=== PATIENT | female | born 1985 | race Caucasian/White ===

== ENCOUNTER 2018-05-17 21:26 | Inpatient (IN) ==
[2018-05-17] MEDS ORDERED: Clindamycin 900 mg/NS Premix 900 MG/50 ML PIGGYBACK IV.SIG ONE (22:25)
[2018-05-17] MEDS ORDERED: Morphine Sulfate Inj 2 MG/ML Vial IV.PUSH ONE (22:25)
[2018-05-17 22:47] LABS: Baso # (Auto) 0.1 th/mm3 (0.0-0.2); Baso % (Auto) 0.6 % (0.0-2.0); Eos # (Auto) 0.1 th/mm3 (0.0-0.4); Eos % (Auto) 0.3 % (0.0-4.0); Hematocrit 39.3 % (35.0-46.0); Hemoglobin 13.6 gm/dL (11.6-15.3); Lymph # (Auto) 3.6 th/mm3 (1.0-4.8); Lymph % (Auto) 15.3 % (9.0-44.0); Mean Corpuscular HGB Conc 34.6 % (32.0-36.0); Mean Corpuscular Volume 86.9 fL (80.0-100.0); Mono # (Auto) 1.9 th/mm3 (0.0-0.9); Mono % (Auto) 7.9 % (0.0-8.0); Neut # (Auto) 17.9 th/mm3 (1.8-7.7); Neut % (Auto) 75.9 % (16.0-70.0); Platelet Count 340 th/mm3 (150-450); Red Blood Count 4.52 mil/mm3 (4.00-5.30); Red Cell Distribution Width 13.6 % (11.6-17.2); White Blood Count 23.6 th/mm3 (4.0-11.0)
[2018-05-17 23:00] LABS: Carbon Dioxide 27.8 meq/L (21.0-32.0); Potassium 3.2 meq/L (3.5-5.1)
--- NOTE | 2018-05-17 23:07 | ED ---
HPI General Chief complaint: Skin/Abscess/Foreign Body Stated complaint: poss ingrown hair/skin issue Time Seen by Provider: 05/17/18 22:08 Source: patient Mode of arrival: ambulatory Limitations: no limitations History of Present Illness HPI narrative: Patient is a 32-year-old female presenting to the emergency department for evaluation of pain, swelling and redness to her genital area. Patient reports that started 3 days ago, she initially thought she had an ingrown hair. The area had become more red and swollen over the last 2 days prompting a visit to the urgent care center today and sent her to the emergency department for evaluation. Patient denies fevers but reports chills and states she does not feel well. Patient reports 10 out of 10 pain, constant, throbbing. No alleviating factors, worse when she tries to walk. She denies any other complaints at this time. MD complaint: Reports abscess/boil Onset (ago): day(s) (3) Location: Reports genitals Severity: severe Severity scale (1-10): 10 Quality: Reports aching Pain Consistency: constant Relieving factors: none Exacerbating factors: movement Context: Reports other (shaving) Associated symptoms: Reports chills Treatments prior to arrival: Reports attempted to drain pus at home Related Data Home Medications Medication Instructions Recorded Confirmed duloxetine [Cymbalta] 60 mg PO DAILY 05/17/18 05/17/18 hydrochlorothiazide 25 mg PO DAILY 05/17/18 05/17/18 Allergies Allergy/AdvReac Type Severity Reaction Status Date / Time No Known Allergies Allergy Verified 05/17/18 21:35 Review of Systems ROS: all other systems reviewed are negative [facility] Medical History Medical History Depression (Acute) HTN (hypertension) (Acute) Hepatitis C (Acute) Surgical History Surgical History H/O hernia repair (Acute) Hx of section (Acute) Social History Social History Smoking Status: Current every day smoker Tobacco Type: Cigarettes How Often Do You Have a Drink Containing Alcohol: Monthly or less Recent Travel in [facility] within the Last 8 Weeks: No Recent Out of Country Travel within the Last 8 Weeks: No Immunization History Tetanus Immunization: Unsure Exam Narrative Exam Narrative: GENERAL: Overweight, alert, well-developed female. Appears uncomfortable, no acute distress. SKIN: Focused skin assessment warm/dry. HEAD: Atraumatic. Normocephalic. EYES: Pupils equal and round. No scleral icterus. No injection or drainage. ENT: No nasal bleeding or discharge. Mucous membranes pink and moist. NECK: Trachea midline. No JVD. CARDIOVASCULAR: Regular rate and rhythm. No murmur appreciated. RESPIRATORY: No accessory muscle use. Clear to auscultation. Breath sounds equal bilaterally. GASTROINTESTINAL: Abdomen soft, non-tender, nondistended. Hepatic and splenic margins not palpable. MUSCULOSKELETAL: No obvious deformities. No clubbing. No cyanosis. No edema. GENITOURINARY: No dysuria, no frequency, vaginal discharge or bleeding. Significant edema and erythema to mons pubis tracking to the left outer labia. No fluctuance noted. NEUROLOGICAL: Awake and alert. No obvious cranial nerve deficits. Motor grossly within normal limits. Normal speech. PSYCHIATRIC: Appropriate mood and affect; insight and judgment normal. Course Initial Documented Vital Signs Temperature 99.8 F H 05/17/18 21:32 Pulse Rate 112 H 05/17/18 21:32 Respiratory Rate 20 05/17/18 21:32 Blood Pressure 180/112 H 05/17/18 21:32 Pulse Oximetry 98 05/17/18 21:32 Last Documented Vital Signs Temperature 99.4 F 05/17/18 23:51 Pulse Rate 104 H 05/17/18 23:51 Respiratory Rate 16 05/17/18 23:51 Blood Pressure 135/81 05/17/18 23:51 Pulse Oximetry 97 05/17/18 23:51 Medical Decision Making [facility] Narrative Medical decision making narrative: Patient is a 32-year-old female that presented to emerge from for evaluation of an abscess to her mons pubis. I&D was attempted however no purulent drainage was obtained. Basic labs were ordered, CBC resulted with a white blood cell count greater than 23,000. At this time blood cultures, lactic acid and a CT scan was ordered. Patient was given clindamycin IV, morphine for pain and IV fluids. Her temp was assessed at 100.1 patient was given ibuprofen for the fever. She was reassessed and her temperature had normalized. Her heart rate trended down after administration of IV fluids. Patient meets sepsis protocol based on her white blood cell count , tachycardia and source. Patient will be admitted for IV antibiotics. Patient is agreeable to stay, she is resting comfortably upon reassessment. Medical Screen Exam Complete: Yes Emergency Medical Condition: Yes Differential Diagnosis Differential Diagnosis: Cellulitis versus abscess versus sepsis versus other Lab Data Result diagrams: 05/17/18 22:40 05/17/18 22:40 Lab Results 05/17/18 05/17/18 05/17/18 Range/Units 22:40 22:40 23:00 WBC 23.6 H (4.0-11.0) th/mm3 RBC 4.52 (4.00-5.30) mil/mm3 Hgb 13.6 (11.6-15.3) gm/dL Hct 39.3 (35.0-46.0) % MCV 86.9 (80.0-100.0) fL MCH 30.0 (27.0-34.0) pg MCHC 34.6 (32.0-36.0) % RDW 13.6 (11.6-17.2) % Plt Count 340 (150-450) th/mm3 MPV 8.0 (7.0-11.0) fL Neut % (Auto) 75.9 H (16.0-70.0) % Lymph % (Auto) 15.3 (9.0-44.0) % [place] % (Auto) 7.9 (0.0-8.0) % Eos % (Auto) 0.3 (0.0-4.0) % Baso % (Auto) 0.6 (0.0-2.0) % Neut # (Auto) 17.9 H (1.8-7.7) th/mm3 Lymph # (Auto) 3.6 (1.0-4.8) th/mm3 [place] # (Auto) 1.9 H (0.0-0.9) th/mm3 Eos # (Auto) 0.1 (0.0-0.4) th/mm3 Baso # (Auto) 0.1 (0.0-0.2) th/mm3 WBC Differential . Differential Comment Auto diff final Sodium 133 L (136-145) meq/L Potassium 3.2 L (3.5-5.1) meq/L Chloride 97 L (98-107) meq/L Carbon Dioxide 27.8 (21.0-32.0) meq/L Anion Gap 8 (5-15) meq/L BUN 8 (7-18) mg/dL Creatinine 0.82 (0.50-1.00) mg/dL Estimated GFR 82 L (>89) mL/min Random Glucose 98 (74-106) mg/dL Lactic Acid 1.2 (0.4-2.0) mmol/L Calcium 9.0 (8.5-10.1) mg/dL Total Bilirubin (0.2-1.0) mg/dL Direct Bilirubin (0.0-0.2) mg/dL Indirect Bilirubin (0.0-0.8) mg/dL AST (15-37) U/L ALT (10-53) U/L Alkaline Phosphatase (45-117) U/L Total Protein (6.4-8.2) g/dL Albumin (3.4-5.0) g/dL Urine Color (Yellw/Straw) Urine Clarity (Clear) Urine pH (5.0-8.5) Ur Specific [place] (1.002-1.035) Urine Protein (Neg-Trace) mg/dL Urine Glucose (UA) (Negative) mg/dL Urine Ketones (Negative) mg/dL Urine Occult Blood (Negative) Urine Nitrate (Negative) Urine Bilirubin (Negative) Urine Urobilinogen (Less than 2) mg/dL Ur Leukocyte Esterase (Negative) Urine RBC (0-3) /hpf Urine WBC (0-5) /hpf Ur Squamous Epith Cells (0-5) /hpf Urine Bacteria (None) /hpf Urine Mucus (Occasional) /lpf Micro UA Comment Ur Microscopic Review Urine Culture Comments 05/17/18 05/17/18 Range/Units 23:05 Unknown WBC (4.0-11.0) th/mm3 RBC (4.00-5.30) mil/mm3 Hgb (11.6-15.3) gm/dL Hct (35.0-46.0) % MCV (80.0-100.0) fL MCH (27.0-34.0) pg MCHC (32.0-36.0) % RDW (11.6-17.2) % Plt Count (150-450) th/mm3 MPV (7.0-11.0) fL Neut % (Auto) (16.0-70.0) % Lymph % (Auto) (9.0-44.0) % [place] % (Auto) (0.0-8.0) % Eos % (Auto) (0.0-4.0) % Baso % (Auto) (0.0-2.0) % Neut # (Auto) (1.8-7.7) th/mm3 Lymph # (Auto) (1.0-4.8) th/mm3 [place] # (Auto) (0.0-0.9) th/mm3 Eos # (Auto) (0.0-0.4) th/mm3 Baso # (Auto) (0.0-0.2) th/mm3 WBC Differential Differential Comment Sodium (136-145) meq/L Potassium (3.5-5.1) meq/L Chloride (98-107) meq/L Carbon Dioxide (21.0-32.0) meq/L Anion Gap (5-15) meq/L BUN (7-18) mg/dL Creatinine (0.50-1.00) mg/dL Estimated GFR (>89) mL/min Random Glucose (74-106) mg/dL Lactic Acid (0.4-2.0) mmol/L Calcium (8.5-10.1) mg/dL Total Bilirubin 1.1 H (0.2-1.0) mg/dL Direct Bilirubin 0.2 (0.0-0.2) mg/dL Indirect Bilirubin 0.9 H (0.0-0.8) mg/dL AST 31 (15-37) U/L ALT 74 H (10-53) U/L Alkaline Phosphatase 80 (45-117) U/L Total Protein 7.8 (6.4-8.2) g/dL Albumin 3.7 (3.4-5.0) g/dL Urine Color Straw (Yellw/Straw) Urine Clarity Clear (Clear) Urine pH 5.0 (5.0-8.5) Ur Specific [place] 1.006 (1.002-1.035) Urine Protein Negative (Neg-Trace) mg/dL Urine Glucose (UA) Negative (Negative) mg/dL Urine Ketones Negative (Negative) mg/dL Urine Occult Blood Negative (Negative) Urine Nitrate Negative (Negative) Urine Bilirubin Negative (Negative) Urine Urobilinogen Less than 2 (Less than 2) mg/dL Ur Leukocyte Esterase Negative (Negative) Urine RBC Less than 1 (0-3) /hpf Urine WBC 1 (0-5) /hpf Ur Squamous Epith Cells 1 (0-5) /hpf Urine Bacteria Rare H (None) /hpf Urine Mucus Few H (Occasional) /lpf Micro UA Comment Culture not ind Ur Microscopic Review Not Reportable Urine Culture Comments Culture not ind Imaging Data Radiologist's impression: Abdomen/Pelvis CT 05/17/18 22:52 CONCLUSION: Cellulitis in the region of the vulva but no evidence of abscess. Probable left adrenal adenoma [place]ense liver compatible with fatty infiltration or hepatocellular disease. Discharge Plan Discharge Disposition Patient Disposition: 32 Still Patient Discharge Condition Condition: Stable Discharge Details Diagnosis: Sepsis, Cellulitis Physicians Team ED Provider: Terry Jose ED Midlevel Provider: Rosie Massey Primary Care Provider: Luci Benjamin, Rxs /Orders / Referrals /Forms Prescriptions: No Action hydrochlorothiazide 25 mg Tablet 25 mg PO DAILY RF: 0 duloxetine [Cymbalta] 60 mg Capsule,Delayed Release(Dr/Ec) 60 mg PO DAILY RF: 0 Discharge Interventions Interventions: Vital Signs Last Done: 05/17/18 21:49 Status ED Status: Admitted Patient
[2018-05-17 23:24] LABS: Bacteria,Urine Rare /hpf; Bilirubin,Urine Negative (Negative); Clarity,Urine Clear (Clear); Color,Urine Straw (Yellw/Straw); Glucose,Urine (UA) Negative (Negative); Leukocyte Esterase,Urine Negative (Negative); Mucus,Urine Few /lpf (Occasional); Nitrite,Urine Negative (Negative); Specific Gravity,Urine 1.006 (1.002-1.035); Squamous Epithelial Cell,Urine 1 /hpf (0-5)
--- NOTE | 2018-05-17 23:24 | CT ---
EXAM DATE: 05/17/2018 10:57 PM EDT AGE/SEX: 32 years / Female INDICATIONS: Pubic abscess. CLINICAL DATA: This is the patient's initial encounter. Patient reports that signs and symptoms have been present for 1 day and indicates a pain score of 10/10. MEDICAL/SURGICAL HISTORY: Hepatitis C. Hypertension. section. Hernia repair ORAL CONTRAST: No oral contrast ingested. RADIATION DOSE: 9.16 CTDI (mGy) COMPARISON: No prior exams available for comparison. TECHNIQUE: Multiple contiguous axial images were obtained through the abdomen and pelvis following b olus infusion of 95 ml Omnipaque 350 (iohexol) nonionic water-soluble contrast as a single exam dos e. No oral contrast ingested. Using automated exposure control and adjustment of the mA and/or kV ac cording to patient size, radiation dose was kept as low as reasonably achievable to obtain optimal di agnostic quality images. DICOM format image data is available electronically for review and comparis on. FINDINGS: Examination of the lung bases demonstrates no abnormality. No pleural fluid is identified. No pulmona ry nodules are present. There is decreased density of the liver with respect to the spleen compatible with fatty infiltration. The spleen is unremarkable. The gallbladder and pancreas are unremarkable. No intrahepatic or extrahepatic ductal dilatation is seen. The right adrenal gland is unremarkable. There is a nodule in the left adrenal gland likely reflecting adenoma measuring 2 cm The kidneys are normal bilaterally without evidence of mass or hydronephrosis. Examination of the pelvis demonstrates no evidence of free fluid or pelvic mass. No abnormally enlarg ed inguinal or retroperitoneal lymph nodes are present. The bladder is unremarkable. There is subcuta neous edema over the vulva but no discrete abscess is identified. CONCLUSION: Cellulitis in the region of the vulva but no evidence of abscess. Probable left adrenal adenoma Hypodense liver compatible with fatty infiltration or hepatocellular disease. Electronically signed by: Erik Borges MD 05/17/2018 11:23 PM EDT
[2018-05-17 23:37] LABS: Albumin 3.7 g/dL (3.4-5.0)
[2018-05-17 23:38] LABS: Total Protein 7.8 g/dL (6.4-8.2)
[2018-05-18 00:39] LABS: Amphetamine Screen,Urine Neg (Neg); Barbiturate Screen,Urine Neg (Neg); Cannabinoid Screen,Urine Pos (Neg); Cocaine Screen,Urine Pos (Neg)
[2018-05-18 00:40] LABS: Opiate Screen,Urine Pos (Neg)
[2018-05-18] MEDS ORDERED: Bisacodyl 10 MG Supp RECTAL PRN (01:14)
[2018-05-18] MEDS: Sod Chloride 0.9% Inj 1,000 ML IV.CONT SCH ×3 (01:19→21:38)
--- NOTE | 2018-05-18 01:21 | P.HP ---
History of Present Illness Service: [facility] Primary Care Physician: Luci Benjamin History of Present Illness: 32-year-old female with past medical history of depression, hepatitis C and IV drug abuse presents to the emergency department for evaluation of pubic cellulitis. The patient reports approximately 3-4 days ago she noticed a small red bump which she thought was an ingrown hair over the left side of her pubic bone. She reports an increase in pain and redness since that time. She endorses associated fever/chills. Also complains of diarrhea. No abdominal pain. No previous antibiotic use. No nausea/vomiting. No chest pain or shortness of breath. Inpatient Certification: I certify that the inpatient services were ordered in accordance with Medicare regulations governing the order. This includes certification that hospital inpatient services are reasonable and necessary and in the case of services not specified as inpatient-only under 42 CFR 419.22(n), that they are appropriately provided as inpatient services in accordance to with the 2-midnight benchmark under 43 CFR 412.3(e) Estimated Total Length of Stay (Days): 2 Plans for Post Hospital Care: Home Review of Systems All other systems reviewed negative except as stated in HPI PMFSH - History History Provided By: Patient - Medical History Medical History: Medical History (Last Reviewed 05/18/18 @ 01:17 by Ophelia Porras MD) Depression HTN (hypertension) Hepatitis C - Surgical History Surgical History: Surgical History (Last Updated 05/18/18 @ 01:17 by Ophelia Porras MD) H/O hernia repair History of bilateral breast reduction surgery Hx of section - Family History Family History: Family History (Last Updated 05/18/18 @ 01:17 by Ophelia Porras MD) Other Family history normal - Tobacco History Tobacco Use In Past 30 Days: Yes Smoking Status: Current every day smoker Tobacco Type: Cigarettes - Alcohol History How Often Do You Have a Drink Containing Alcohol: Monthly or less - Travel History Recent Travel in the [place] Within the Last 8 Weeks: No Recent Travel Out of the Country Within the Last 8 Weeks: No - Immunization History Tetanus Immunization: Unsure Medications and Allergies Active Medications: Active Medications Sodium Chloride (Ns Flush) 2 ml IV.FLUSH PRN PRN PRN Reason: FLUSH AFTER USING IV ACCESS Sodium Chloride (Ns Flush) 2 ml IV.FLUSH PRN PRN PRN Reason: FLUSH AFTER USING IV ACCESS Allergies Allergy/AdvReac Type Severity Reaction Status Date / Time No Known Allergies Allergy Verified 05/17/18 21:35 Home Medications Medication Instructions Recorded Confirmed Type duloxetine [Cymbalta] 60 mg PO DAILY 05/17/18 05/17/18 History hydrochlorothiazide 25 mg PO DAILY 05/17/18 05/17/18 History Exam Vital signs: Vital Signs 05/17/18 21:32 05/17/18 21:49 05/17/18 22:42 Temperature 99.8 F H Pulse Rate 112 H 105 H Respiratory Rate 20 18 16 Blood Pressure 180/112 H 145/96 H Pulse Oximetry 98 98 05/17/18 23:51 Temperature 99.4 F Pulse Rate 104 H Respiratory Rate 16 Blood Pressure 135/81 Pulse Oximetry 97 Intake & Output 05/17/18 05/17/18 05/18/18 06:59 18:59 06:59 Intake Total 50 / 50 Balance 50 / 50 Weight 84.822 kg Intake: IV 50 / 50 Cleocin 900 mg/NS Premix 900 mg 50 / 50 In 50 ml @ 100 mls/hr IV.SIG ONCE ONE Rx#:[id number] Narrative: Gen.: No acute distress Head: Normocephalic. Atraumatic. EENT: Pupils equal round and reactive to light. Nose without drainage. Airway intact. Throat without injection. Cardiovascular: Regular rate and rhythm. No murmurs, rubs or gallops. Respiratory: Lungs clear to auscultation bilaterally. No wheezes or rhonchi. Abdomen: Soft, nontender, nondistended. No peritoneal signs. Musculoskeletal: No gross deformities. No edema. Skin: Large area of erythema and induration over the pubic bone extending to left vulva. No areas of fluctuance or drainage. Neuro: Sensory and motor grossly intact. Cranial nerves II through XII grossly intact. Results - Labs CBC & Chem 7: 05/17/18 22:40 05/17/18 22:40 Labs: Laboratory Results - last 24 hr 05/17/18 05/17/18 05/17/18 22:40 22:40 23:00 WBC 23.6 H RBC 4.52 Hgb 13.6 Hct 39.3 MCV 86.9 MCH 30.0 MCHC 34.6 RDW 13.6 Plt Count 340 MPV 8.0 Neut % (Auto) 75.9 H Lymph % (Auto) 15.3 [place] % (Auto) 7.9 Eos % (Auto) 0.3 Baso % (Auto) 0.6 Neut # (Auto) 17.9 H Lymph # (Auto) 3.6 [place] # (Auto) 1.9 H Eos # (Auto) 0.1 Baso # (Auto) 0.1 WBC Differential . Differential Comment Auto diff final Sodium 133 L Potassium 3.2 L Chloride 97 L Carbon Dioxide 27.8 Anion Gap 8 BUN 8 Creatinine 0.82 Estimated GFR 82 L Random Glucose 98 Lactic Acid 1.2 Calcium 9.0 Total Bilirubin Direct Bilirubin Indirect Bilirubin AST ALT Alkaline Phosphatase Total Protein Albumin Urine Color Urine Clarity Urine pH Ur Specific [place] Urine Protein Urine Glucose (UA) Urine Ketones Urine Occult Blood Urine Nitrate Urine Bilirubin Urine Urobilinogen Ur Leukocyte Esterase Urine RBC Urine WBC Ur Squamous Epith Cells Urine Bacteria Urine Mucus Micro UA Comment Ur Microscopic Review Urine Culture Comments Urine Opiates Screen Ur Barbiturates Screen Ur Amphetamines Screen U Benzodiazepines Scrn Urine Cocaine Screen U Cannabinoids Screen 05/17/18 05/17/18 05/17/18 23:05 23:05 Unknown WBC RBC Hgb Hct MCV MCH MCHC RDW Plt Count MPV Neut % (Auto) Lymph % (Auto) [place] % (Auto) Eos % (Auto) Baso % (Auto) Neut # (Auto) Lymph # (Auto) [place] # (Auto) Eos # (Auto) Baso # (Auto) WBC Differential Differential Comment Sodium Potassium Chloride Carbon Dioxide Anion Gap BUN Creatinine Estimated GFR Random Glucose Lactic Acid Calcium Total Bilirubin 1.1 H Direct Bilirubin 0.2 Indirect Bilirubin 0.9 H AST 31 ALT 74 H Alkaline Phosphatase 80 Total Protein 7.8 Albumin 3.7 Urine Color Straw Urine Clarity Clear Urine pH 5.0 Ur Specific [place] 1.006 Urine Protein Negative Urine Glucose (UA) Negative Urine Ketones Negative Urine Occult Blood Negative Urine Nitrate Negative Urine Bilirubin Negative Urine Urobilinogen Less than 2 Ur Leukocyte Esterase Negative Urine RBC Less than 1 Urine WBC 1 Ur Squamous Epith Cells 1 Urine Bacteria Rare H Urine Mucus Few H Micro UA Comment Culture not ind Ur Microscopic Review Not Reportable Urine Culture Comments Culture not ind Urine Opiates Screen Pos H Ur Barbiturates Screen Neg Ur Amphetamines Screen Neg U Benzodiazepines Scrn Neg Urine Cocaine Screen Pos H U Cannabinoids Screen Pos H - Imaging Impressions Abdomen/Pelvis CT 10/17/18 22:52 CONCLUSION: Cellulitis in the region of the vulva but no evidence of abscess. Probable left adrenal adenoma Hypodense liver compatible with fatty infiltration or hepatocellular disease. Caprini VTE Risk Assessment Caprini VTE Risk Assessment: No/Low Risk (score <= 1) Caprini Risk Assessment Model: Point Value = 1 Point Value = 2 Point Value = 3 Point Value = 5 Age 41-60 Minor surgery BMI > 25 kg/m2 Swollen legs Varicose veins or History of unexplained or recurrent spontaneous Oral contraceptives or hormone replacement Sepsis (< 1 month) Serious lung disease, including pneumonia (< 1 month) Abnormal pulmonary function Acute myocardial infarction Congestive heart failure (< 1 month) History of inflammatory bowel disease Medical patient at bed rest Age 61-74 Arthroscopic surgery Major open surgery (> 45 min) Laparoscopic surgery (> 45 min) Malignancy Confined to bed (> 72 hours) Immobilizing plaster cast Central venous access Age >= 75 History of VTE Family history of VTE Factor V Leiden Prothrombin [id number] Lupus anticoagulant Anticardiolipin antibodies Elevated serum homocysteine Heparin-induced thrombocytopenia Other congenital or acquired thrombophilia Stroke (< 1 month) Elective arthroplasty Hip, pelvis, or leg fracture Acute spinal cord injury (< 1 month) Prophylaxis Regimen: Total Risk Factor Score Risk Level Prophylaxis Regimen 0-1 Low Early ambulation 2 Moderate Order ONE of the following: *Sequential Compression Device (SCD) *Heparin 5000 units SQ BID 3-4 Higher Order ONE of the following medications: *Heparin 5000 units SQ TID *Enoxaparin/Lovenox 40 mg SQ daily (WT < 150 kg, CrCl > 30 mL/min) *Enoxaparin/Lovenox 30 mg SQ daily (WT < 150 kg, CrCl > 10-29 mL/min) *Enoxaparin/Lovenox 30 mg SQ BID (WT < 150 kg, CrCl > 30 mL/min) AND/OR *Sequential Compression Device (SCD) 5 or more Highest Order ONE of the following medications: *Heparin 5000 units SQ TID (Preferred with Epidurals) *Enoxaparin/Lovenox 40 mg SQ daily (WT < 150 kg, CrCl > 30 mL/min) *Enoxaparin/Lovenox 30 mg SQ daily (WT < 150 kg, CrCl > 10-29 mL/min) *Enoxaparin/Lovenox 30 mg SQ BID (WT < 150 kg, CrCl > 30 mL/min) AND *Sequential Compression Device (SCD) Assessment and Plan - Plan Assessment/plan: 1. Cellulitis/sepsis Patient with leukocytosis and tachycardia CT significant for cellulitis in the region of vulva with no evidence of abscess IV clindamycin IV fluid hydration Blood cultures pending 2. Depression Continue home medications 3. Hepatitis C Recommend outpatient follow-up 4. IV drug abuse Cessation counseling provided FEN Regular diet NS at 100 cc/hour
[2018-05-18] MEDS: Duloxetine 60 MG DR Capsule PO SCH (08:28)
[2018-05-18] MEDS: hydroCHLOROthiazide 25 MG Tablet PO SCH (08:28)
[2018-05-18] MEDS: Senna/Docusate Sodium 8.6/50 MG Tablet PO SCH ×2 (08:28→20:03)
--- NOTE | 2018-05-18 14:35 | P.CONID ---
History of Present Illness Service: ID Consult date: 05/18/18 Requesting Physician: Ger Aleman Reason for Consult: vulvar abscess Primary Care Provider: Luci Benjamin History of Present Illness: 32 yo F [place] presented with few days of worsening swelling redness and pain started on her L labia + subjective fever On presentation fever up to 99.8F leukocytosis of 23 K sp B/s I+D with minimal purulence, MRSA in cultures CT A/P showed Cellulitis in the region of the vulva but no evidence of abscess. Pt was placed on clindamycin Review of Systems All other systems reviewed negative except as stated in HPI PMFSH - History History Provided By: Patient - Medical History Medical History: Medical History (Last Reviewed 05/18/18 @ 14:23 by Marilyn Clark MD) Depression HTN (hypertension) Hepatitis C - Surgical History Surgical History: Surgical History (Last Reviewed 05/18/18 @ 14:23 by Marilyn Clark MD) H/O hernia repair History of bilateral breast reduction surgery Hx of section - Family History Family History: Family History (Last Reviewed 05/18/18 @ 14:23 by Marilyn Clark MD) Other Family history normal - Social History I have reviewed the patient's Social History: Yes - Tobacco History Second Hand Smoke Exposure: No Tobacco Use In Past 30 Days: Yes Smoking Status: Current every day smoker Tobacco Type: Cigarettes - Alcohol History How Often Do You Have a Drink Containing Alcohol: 2 to 4 times a month - Substance Use History Substance History: Active Abuse - Substance Use Type Marijuana Status: Active Route Used: By Mouth Frequency: couple times a week Last Used: 05/17/18 Reason for Use: Feels Good Heroin Status: Active Route Used: Intravenously Frequency: 2-3 times a week Last Used: 05/17/18 Reason for Use: Feels Good Crack/Cocaine Status: Active Route Used: Inhalation Frequency: rarely Last Used: 05/17/18 Reason for Use: Feels Good - Travel History Recent Travel in the [place] Within the Last 8 Weeks: No Recent Travel Out of the Country Within the Last 8 Weeks: No - Immunization History Tetanus Immunization: Unsure Hx Influenza Vaccine This Season: No Medications and Allergies Active Medications: Active Medications Acetaminophen (Tylenol) 650 mg PO Q4H PRN PRN Reason: Temp > 100.4 Al Hydroxide/Mg Hydroxide (Milk Of Magnesia Liq) 30 ml PO Q12H PRN PRN Reason: Mild Constipation Bisacodyl (Dulcolax Supp) 10 mg RECTAL DAILY PRN PRN Reason: SEVERE CONSITIPATION Duloxetine HCl (Cymbalta) 60 mg PO DAILY [facility] Last Admin: 05/18/18 08:28 Dose: 60 mg Hydrochlorothiazide (Hydrodiuril) 25 mg PO DAILY [facility] Last Admin: 05/18/18 08:28 Dose: 25 mg Clindamycin/Sodium Chloride (Cleocin 900 Mg/Ns Premix) 900 mg in 50 mls @ 100 mls/hr IV.SIG Q8H [facility] Sodium Chloride (Ns Inj) 1,000 mls @ 100 mls/hr IV.CONT .Q10H [facility] Last Admin: 05/18/18 10:26 Dose: 100 mls/hr Lactulose (Lactulose Liq) 30 ml PO DAILY PRN PRN Reason: SEVERE CONSITIPATION Ondansetron HCl (Zofran Inj) 4 mg IV.PUSH Q6H PRN PRN Reason: NAUSEA OR VOMITING Oxycodone/Acetaminophen (Percocet 7.5/325 Mg) 1 tab PO Q4H PRN PRN Reason: pain 6-10 Last Admin: 05/18/18 12:31 Dose: 1 tab Senna/Docusate Sodium (Desiree-Colace) 1 tab PO BID [facility] Last Admin: 05/18/18 08:28 Dose: 1 tab Sennosides (Senokot) 17.2 mg PO Q12H PRN PRN Reason: Moderate Constipation Sodium Chloride (Ns Flush) 2 ml IV.FLUSH PRN PRN PRN Reason: FLUSH AFTER USING IV ACCESS Sodium Chloride (Ns Flush) 2 ml IV.FLUSH PRN PRN PRN Reason: FLUSH AFTER USING IV ACCESS Allergies Allergy/AdvReac Type Severity Reaction Status Date / Time No Known Allergies Allergy Verified 05/17/18 21:35 Home Medications Medication Instructions Recorded Confirmed Type duloxetine [Cymbalta] 60 mg PO DAILY 05/17/18 05/17/18 History hydrochlorothiazide 25 mg PO DAILY 05/17/18 05/17/18 History Exam Vital signs: Vital Signs 05/17/18 21:32 05/17/18 21:49 05/17/18 22:42 Temperature 99.8 F H Pulse Rate 112 H 105 H Respiratory Rate 20 18 16 Blood Pressure 180/112 H 145/96 H Pulse Oximetry 98 98 05/17/18 23:51 05/18/18 04:00 05/18/18 08:00 Temperature 99.4 F 98.3 F 97.6 F Pulse Rate 104 H 80 72 Respiratory Rate 16 17 17 Blood Pressure 135/81 116/79 128/85 Pulse Oximetry 97 98 99 05/18/18 12:00 Temperature 98.5 F Pulse Rate 78 Respiratory Rate 19 Blood Pressure 100/66 Pulse Oximetry 98 Intake & Output 05/17/18 05/18/18 05/18/18 18:59 06:59 18:59 Intake Total 250 / 250 1000 / 1000 Balance 250 / 250 1000 / 1000 Weight 82.1 kg Intake: IV 50 / 50 1000 / 1000 NS Inj 1,000 ML @ 100 mls/hr IV 1000 / 1000 .CONT .Q10H [facility] Rx#:[id number] Cleocin 900 mg/NS Premix 900 mg 50 / 50 In 50 ml @ 100 mls/hr IV.SIG ONCE ONE Rx#:[id number] Oral 200 / 200 Other: # Voids 1 Date of Last Bowel Movement 05/17/18 05/16/18 Weight On Admission 82.1 kg - Constitutional no acute distress, obese - Routine HEENT Exam Head: Present: normocephalic, atraumatic Eye: Present: EOMI, PERRL - Routine Neck Exam Present: supple. Absent: JVD - Routine Respiratory Exam Present: CTA bilaterally. Absent: accessory muscle use, respiratory distress - Routine Cardiovascular Exam Present: RRR, S1, S2. Absent: murmur, gallop, rubs - Routine Abdominal Exam Present: soft, normoactive bowel sounds. Absent: tenderness, distended, organomegaly, mass - Routine Exam External: Present: erythema, swelling, tenderness Groin: Present: swelling, erythema Comments: Marked ertythema and indurationof L labia, L groin and suprapubic area very tender to papation erythema extends to R side and to L side - Routine Extremities Exam Present: full ROM. Absent: cyanosis, clubbing, edema - Routine Skin Exam Present: dry, warm. Absent: rash - Routine Neurological Exam Present: alert, oriented X3, CN II-XII intact, moving all extremities, vision grossly intact, hearing grossly intact - Routine Psychiatric Exam Present: normal affect, normal thought process, cooperative Results - Labs CBC & Chem 7: 05/17/18 22:40 05/17/18 22:40 Labs: Laboratory Results - last 24 hr 05/17/18 05/17/18 05/17/18 22:40 22:40 23:00 WBC 23.6 H RBC 4.52 Hgb 13.6 Hct 39.3 MCV 86.9 MCH 30.0 MCHC 34.6 RDW 13.6 Plt Count 340 MPV 8.0 Neut % (Auto) 75.9 H Lymph % (Auto) 15.3 [place] % (Auto) 7.9 Eos % (Auto) 0.3 Baso % (Auto) 0.6 Neut # (Auto) 17.9 H Lymph # (Auto) 3.6 [place] # (Auto) 1.9 H Eos # (Auto) 0.1 Baso # (Auto) 0.1 WBC Differential . Differential Comment Auto diff final Sodium 133 L Potassium 3.2 L Chloride 97 L Carbon Dioxide 27.8 Anion Gap 8 BUN 8 Creatinine 0.82 Estimated GFR 82 L Random Glucose 98 Lactic Acid 1.2 Calcium 9.0 Total Bilirubin Direct Bilirubin Indirect Bilirubin AST ALT Alkaline Phosphatase Total Protein Albumin Urine Color Urine Clarity Urine pH Ur Specific [place] Urine Protein Urine Glucose (UA) Urine Ketones Urine Occult Blood Urine Nitrate Urine Bilirubin Urine Urobilinogen Ur Leukocyte Esterase Urine RBC Urine WBC Ur Squamous Epith Cells Urine Bacteria Urine Mucus Micro UA Comment Ur Microscopic Review Urine Culture Comments Urine Opiates Screen Ur Barbiturates Screen Ur Amphetamines Screen U Benzodiazepines Scrn Urine Cocaine Screen U Cannabinoids Screen 05/17/18 05/17/18 05/17/18 23:05 23:05 Unknown WBC RBC Hgb Hct MCV MCH MCHC RDW Plt Count MPV Neut % (Auto) Lymph % (Auto) [place] % (Auto) Eos % (Auto) Baso % (Auto) Neut # (Auto) Lymph # (Auto) [place] # (Auto) Eos # (Auto) Baso # (Auto) WBC Differential Differential Comment Sodium Potassium Chloride Carbon Dioxide Anion Gap BUN Creatinine Estimated GFR Random Glucose Lactic Acid Calcium Total Bilirubin 1.1 H Direct Bilirubin 0.2 Indirect Bilirubin 0.9 H AST 31 ALT 74 H Alkaline Phosphatase 80 Total Protein 7.8 Albumin 3.7 Urine Color Straw Urine Clarity Clear Urine pH 5.0 Ur Specific [place] 1.006 Urine Protein Negative Urine Glucose (UA) Negative Urine Ketones Negative Urine Occult Blood Negative Urine Nitrate Negative Urine Bilirubin Negative Urine Urobilinogen Less than 2 Ur Leukocyte Esterase Negative Urine RBC Less than 1 Urine WBC 1 Ur Squamous Epith Cells 1 Urine Bacteria Rare H Urine Mucus Few H Micro UA Comment Culture not ind Ur Microscopic Review Not Reportable Urine Culture Comments Culture not ind Urine Opiates Screen Pos H Ur Barbiturates Screen Neg Ur Amphetamines Screen Neg U Benzodiazepines Scrn Neg Urine Cocaine Screen Pos H U Cannabinoids Screen Pos H - Imaging Impressions Abdomen/Pelvis CT 05/17/18 22:52 CONCLUSION: Cellulitis in the region of the vulva but no evidence of abscess. Probable left adrenal adenoma Hypodense liver compatible with fatty infiltration or hepatocellular disease. Assessment and Plan - Plan Phlegmone and cellutlitis of L labia, suprapubic area, MRSa sp b/s I+D eralier in ER change abx vancomycin and zosyn will consult CANCER SPEC dw Dr Aleman
[2018-05-18] MEDS ORDERED: Vancomycin Consult Pharmacy OTHER PRN (14:43)
[2018-05-18] MEDS: Piperacil/Tazo 3.375 GM Premix 50 ML IV.SIG SCH ×2 (15:50→21:37)
[2018-05-18] MEDS: Vancomycin Inj 1,250 MG in Sodium Chlor 0.9% Inj 250 ML IV.SIG SCH (17:04)
--- NOTE | 2018-05-18 19:06 | P.PNADD ---
Addendum to Inpatient Note Additional information: Patient seen and examined. Patient was admitted due to left-sided labial cellulitis/abscess. She continues to have fever as well as significant pain. We consulted infectious disease who in turn also consulted PSYCH THERAPIST for possible I &D. Patient is currently on vancomycin and Zosyn per ID recommendations.
[2018-05-18] MEDS ORDERED: Lidocaine 1% Inj 50 ML Vial ONE (21:53)
[2018-05-18] MEDS ORDERED: Morphine Inj 4 MG/ML Vial IV.PUSH ONE (22:45)
--- NOTE | 2018-05-18 22:58 | P.CONOB ---
History of Present Illness Consult date: 05/18/18 Requesting Physician: Ophelia Porras Reason for Consult: Mons pubis abscess and cellulitis Primary Care Physician: Luci Benjamin Chief Complaint: Severe pain in the suprapubic region with increasing redness swelling and i History of Present Illness: 32-year-old female with past medical history of depression, hepatitis C and IV drug abuse presents to the emergency department for evaluation of pubic cellulitis. The patient reports approximately 3-4 days ago she noticed a small red bump which she thought was an ingrown hair over the left side of her pubic bone. She reports an increase in pain and redness since that time. She endorses associated fever/chills. Also complains of diarrhea. No abdominal pain. No previous antibiotic use. No nausea/vomiting. No chest pain or shortness of breath. Para: 1 : 1 Review of Systems All other systems reviewed negative except as stated in HPI PMFSH - History History Provided By: Patient - Medical History Medical History: Medical History (Last Reviewed 05/18/18 @ 14:23 by Marilyn Clark MD) Depression HTN (hypertension) Hepatitis C - Surgical History Surgical History: Surgical History (Last Reviewed 05/18/18 @ 14:23 by Marilyn Clark MD) H/O hernia repair History of bilateral breast reduction surgery Hx of section - Family History Family History: Family History (Last Reviewed 05/18/18 @ 14:23 by Marilyn Clark MD) Other Family history normal - Tobacco History Second Hand Smoke Exposure: No Tobacco Use In Past 30 Days: Yes Smoking Status: Current every day smoker Tobacco Type: Cigarettes - Alcohol History How Often Do You Have a Drink Containing Alcohol: 2 to 4 times a month - Substance Use History Substance History: Active Abuse - Substance Use Type Marijuana Status: Active Route Used: By Mouth Frequency: couple times a week Last Used: 05/17/18 Reason for Use: Feels Good Heroin Status: Active Route Used: Intravenously Frequency: 2-3 times a week Last Used: 05/17/18 Reason for Use: Feels Good Crack/Cocaine Status: Active Route Used: Inhalation Frequency: rarely Last Used: 05/17/18 Reason for Use: Feels Good - Travel History Recent Travel in the [facility] Within the Last 8 Weeks: No Recent Travel Out of the Country Within the Last 8 Weeks: No - Immunization History Tetanus Immunization: Unsure Hx Influenza Vaccine This Season: No Medications and Allergies Active Medications: Active Medications Acetaminophen (Tylenol) 650 mg PO Q4H PRN PRN Reason: Temp > 100.4 Al Hydroxide/Mg Hydroxide (Milk Of Magnesia Liq) 30 ml PO Q12H PRN PRN Reason: Mild Constipation Bisacodyl (Dulcolax Supp) 10 mg RECTAL DAILY PRN PRN Reason: SEVERE CONSITIPATION Duloxetine HCl (Cymbalta) 60 mg PO DAILY [facility] Last Admin: 05/18/18 08:28 Dose: 60 mg Hydrochlorothiazide (Hydrodiuril) 25 mg PO DAILY [facility] Last Admin: 05/18/18 08:28 Dose: 25 mg Sodium Chloride (Ns Inj) 1,000 mls @ 100 mls/hr IV.CONT .Q10H [facility] Last Admin: 05/18/18 21:38 Dose: Not Given Piperacillin/Tazobactam/Dextrose (Zosyn 3.375 Gm Premix) 50 mls @ 100 mls/hr IV.SIG Q6H [facility] Last Admin: 05/18/18 21:37 Dose: 100 mls/hr Vancomycin HCl 1,250 mg/ (Sodium Chloride) 262.5 mls @ 250 mls/hr IV.SIG Q12H [facility] Last Infusion: 05/18/18 18:11 Dose: Infused Lactulose (Lactulose Liq) 30 ml PO DAILY PRN PRN Reason: SEVERE CONSITIPATION Miscellaneous Information ([facility] Ordered Lab Info) 0 each OTHER ONCE ONE Stop: 05/20/18 05:46 Ondansetron HCl (Zofran Inj) 4 mg IV.PUSH Q6H PRN PRN Reason: NAUSEA OR VOMITING Oxycodone/Acetaminophen (Percocet 7.5/325 Mg) 1 tab PO Q4H PRN PRN Reason: pain 6-10 Last Admin: 05/18/18 21:38 Dose: 1 tab Pharmacy Profile Note (Vancomycin Consult Pharmacy) 1 each OTHER UNSCH PRN PRN Reason: Pharmacy to dose Senna/Docusate Sodium (Desiree-Colace) 1 tab PO BID [facility] Last Admin: 05/18/18 20:03 Dose: Not Given Sennosides (Senokot) 17.2 mg PO Q12H PRN PRN Reason: Moderate Constipation Sodium Chloride (Ns Flush) 2 ml IV.FLUSH PRN PRN PRN Reason: FLUSH AFTER USING IV ACCESS Sodium Chloride (Ns Flush) 2 ml IV.FLUSH PRN PRN PRN Reason: FLUSH AFTER USING IV ACCESS Allergies Allergy/AdvReac Type Severity Reaction Status Date / Time No Known Allergies Allergy Verified 05/17/18 21:35 Home Medications Medication Instructions Recorded Confirmed Type duloxetine [Cymbalta] 60 mg PO DAILY 05/17/18 05/17/18 History hydrochlorothiazide 25 mg PO DAILY 05/17/18 05/17/18 History Exam Vital signs: Vital Signs 05/17/18 23:51 05/18/18 04:00 05/18/18 08:00 Temperature 99.4 F 98.3 F 97.6 F Pulse Rate 104 H 80 72 Respiratory Rate 16 17 17 Blood Pressure 135/81 116/79 128/85 Pulse Oximetry 97 98 99 05/18/18 12:00 05/18/18 16:00 Temperature 98.5 F 99.0 F Pulse Rate 78 78 Respiratory Rate 19 17 Blood Pressure 100/66 106/74 Pulse Oximetry 98 99 Intake & Output 05/18/18 05/18/18 05/19/18 06:59 18:59 06:59 Intake Total 250 / 250 2262.5 / 2262.5 Balance 250 / 250 2262.5 / 2262.5 Weight 82.1 kg Intake: IV 50 / 50 1312.5 / 1312.5 NS Inj 1,000 ML @ 100 mls/hr IV 1000 / 1000 .CONT .Q10H [facility] Rx#:[id number] Cleocin 900 mg/NS Premix 900 mg 50 / 50 In 50 ml @ 100 mls/hr IV.SIG ONCE ONE Rx#:[id number] Zosyn 3.375 GM Premix 50 ML @ 50 / 50 100 mls/hr IV.SIG Q6H [facility] Rx#: [id number] Vancomycin Inj 1,250 MG In NS 262.5 / 262.5 Inj 250 ML @ 250 mls/hr IV.SIG Q12H [facility] Rx#:[id number] Oral 200 / 200 950 / 950 Other: # Voids 1 5 Date of Last Bowel Movement 05/17/18 05/16/18 # Bowel Movements 1 Weight On Admission 82.1 kg Narrative: Patient is examined by the [facility] doctor, she has no vulvar abscess or infection her problem is a mons pubis cellulitis with small amount of abscess. The area is erythematous and indurated extremely tender swollen with redness spreading laterally and out across the groin area on the left side somewhat on the right side and they had initially tried to open this area right in the middle of the mons and they had gotten some pus out and today I also expressed a little bit of pus. The area of hardness induration is about a 7 x 7 cm area right in the midline, this is also the area the most pain we decided to try and open this small area up a little bit more to see if we can get some pus out and so local lidocaine infused around that small area and then a scalpel used to cut down about a centimeter so that the entire incision is about an inch long and this was well-tolerated by the patient with pressure placed on the edges of the swollen indurated area we were able to express some pus and debris but there was not a lot of pus there. Cultures were taken of the wound, then iodoform packing used to pack the wound and a dressing placed upon it Results - Labs CBC & Chem 7: 05/17/18 22:40 05/17/18 22:40 Labs: Laboratory Results - last 24 hr 05/17/18 05/17/18 05/17/18 22:40 23:00 23:05 Sodium 133 L Potassium 3.2 L Chloride 97 L Carbon Dioxide 27.8 Anion Gap 8 BUN 8 Creatinine 0.82 Estimated GFR 82 L Random Glucose 98 Lactic Acid 1.2 Calcium 9.0 Total Bilirubin Direct Bilirubin Indirect Bilirubin AST ALT Alkaline Phosphatase Total Protein Albumin Urine Color Straw Urine Clarity Clear Urine pH 5.0 Ur Specific [place] 1.006 Urine Protein Negative Urine Glucose (UA) Negative Urine Ketones Negative Urine Occult Blood Negative Urine Nitrate Negative Urine Bilirubin Negative Urine Urobilinogen Less than 2 Ur Leukocyte Esterase Negative Urine RBC Less than 1 Urine WBC 1 Ur Squamous Epith Cells 1 Urine Bacteria Rare H Urine Mucus Few H Micro UA Comment Culture not ind Ur Microscopic Review Not Reportable Urine Culture Comments Culture not ind Urine Opiates Screen Ur Barbiturates Screen Ur Amphetamines Screen U Benzodiazepines Scrn Urine Cocaine Screen U Cannabinoids Screen 05/17/18 05/17/18 23:05 Unknown Sodium Potassium Chloride Carbon Dioxide Anion Gap BUN Creatinine Estimated GFR Random Glucose Lactic Acid Calcium Total Bilirubin 1.1 H Direct Bilirubin 0.2 Indirect Bilirubin 0.9 H AST 31 ALT 74 H Alkaline Phosphatase 80 Total Protein 7.8 Albumin 3.7 Urine Color Urine Clarity Urine pH Ur Specific [place] Urine Protein Urine Glucose (UA) Urine Ketones Urine Occult Blood Urine Nitrate Urine Bilirubin Urine Urobilinogen Ur Leukocyte Esterase Urine RBC Urine WBC Ur Squamous Epith Cells Urine Bacteria Urine Mucus Micro UA Comment Ur Microscopic Review Urine Culture Comments Urine Opiates Screen Pos H Ur Barbiturates Screen Neg Ur Amphetamines Screen Neg U Benzodiazepines Scrn Neg Urine Cocaine Screen Pos H U Cannabinoids Screen Pos H - Imaging Impressions Abdomen/Pelvis CT 05/17/18 22:52 CONCLUSION: Cellulitis in the region of the vulva but no evidence of abscess. Probable left adrenal adenoma Hypodense liver compatible with fatty infiltration or hepatocellular disease. Assessment and Plan - Diagnosis (1) Cellulitis Code(s): L03.90 - Cellulitis, unspecified Status: Acute (2) Abscess Code(s): L02.91 - Cutaneous abscess, unspecified Status: Acute - Plan This is a mons pubis cellulitis with abscess that has been opened up tonight and some pus expressed and then iodoform packing and hydrogen peroxide cleaning done this needs to be a twice daily dressing change with peroxide cleaning. The proper antibiotic is on board IV vancomycin great for the MRSA coverage which most of these have a MRSA component and the Zosyn is also very broad- spectrum. With these measures I would expect this to start improving pretty rapidly, the [facility] service will follow along see evidence it is getting better and not requiring further surgical intervention. (1) Cellulitis Qualifiers: Site of cellulitis: other site Qualified Code(s): L03.818 - Cellulitis of other sites
[2018-05-19] MEDS: Sod Chloride 0.9% Inj 1,000 ML IV.CONT SCH ×3 (01:25→18:40)
[2018-05-19] MEDS: Piperacil/Tazo 3.375 GM Premix 50 ML IV.SIG SCH ×4 (03:17→22:17)
[2018-05-19] MEDS: Vancomycin Inj 1,250 MG in Sodium Chlor 0.9% Inj 250 ML IV.SIG SCH ×2 (05:39→17:45)
[2018-05-19] MEDS ORDERED: Clindamycin 900 mg/NS Premix 900 MG/50 ML PIGGYBACK IV.SIG SCH (06:00)
[2018-05-19 07:33] LABS: Baso % (Auto) 0.2 % (0.0-2.0); Eos # (Auto) 0.2 th/mm3 (0.0-0.4); Eos % (Auto) 0.8 % (0.0-4.0); Hematocrit 37.9 % (35.0-46.0); Hemoglobin 12.7 gm/dL (11.6-15.3); Lymph % (Auto) 12.3 % (9.0-44.0); Mean Corpuscular HGB Conc 33.7 % (32.0-36.0); Mean Corpuscular Hemoglobin 29.8 pg (27.0-34.0); Mean Corpuscular Volume 88.7 fL (80.0-100.0); Mean Platelet Volume 8.7 fL (7.0-11.0); Mono # (Auto) 1.2 th/mm3 (0.0-0.9); Mono % (Auto) 4.8 % (0.0-8.0); Neut # (Auto) 20.4 th/mm3 (1.8-7.7); Neut % (Auto) 81.9 % (16.0-70.0); Platelet Count 310 th/mm3 (150-450); Red Blood Count 4.27 mil/mm3 (4.00-5.30); Red Cell Distribution Width 13.7 % (11.6-17.2); White Blood Count 24.8 th/mm3 (4.0-11.0)
[2018-05-19 08:06] LABS: Anion Gap 6 meq/L (5-15); Blood Urea Nitrogen 6 mg/dL (7-18); Calcium 8.3 mg/dL (8.5-10.1); Chloride 101 meq/L (98-107); Glomerular Filtration Rate Greater Than 89 mL/min (>89); Glucose,Random 76 mg/dL (74-106); Potassium 3.3 meq/L (3.5-5.1); Sodium 137 meq/L (136-145)
[2018-05-19] MEDS: Senna/Docusate Sodium 8.6/50 MG Tablet PO SCH ×2 (09:39→22:17)
[2018-05-19] MEDS: Duloxetine 60 MG DR Capsule PO SCH (09:40)
[2018-05-19] MEDS: hydroCHLOROthiazide 25 MG Tablet PO SCH (09:40)
--- NOTE | 2018-05-19 10:48 | P.PNSTU ---
Subjective - Remarks Pt is in pain and feels a lot of pressure around her vulva where the cellulitis is. She has been eating and urinating, but the pain increases when she urinates so she tries to avoid going. Objective Vital Signs: Vital Signs 05/18/18 12:00 05/18/18 16:00 05/18/18 20:00 Temperature 98.5 F 99.0 F 98.5 F Pulse Rate 78 78 81 Respiratory Rate Blood Pressure 100/66 106/74 110/66 Pulse Oximetry 98 99 98 05/19/18 00:00 05/19/18 04:00 05/19/18 08:00 Temperature 99.2 F 98.7 F 99.4 F Pulse Rate 83 107 H 100 H Respiratory Rate Blood Pressure 126/77 134/80 143/80 H Pulse Oximetry 96 96 97 Intake & Output 05/18/18 05/19/18 05/19/18 18:59 06:59 18:59 Intake Total 2262.5 / 2262.5 1520 / 1520 312.5 / 312.5 Balance 2262.5 / 2262.5 1520 / 1520 312.5 / 312.5 Weight 86.8 kg Intake: IV 1312.5 / 1312.5 1100 / 1100 312.5 / 312.5 NS Inj 1,000 ML @ 100 mls/hr IV 1000 / 1000 1000 / 1000 .CONT .Q10H [facility] Rx#:[id number] Zosyn 3.375 GM Premix 50 ML @ 50 / 50 100 / 100 50 / 50 100 mls/hr IV.SIG Q6H [facility] Rx#: [id number] Vancomycin Inj 1,250 MG In NS 262.5 / 262.5 262.5 / 262.5 Inj 250 ML @ 250 mls/hr IV.SIG Q12H [facility] Rx#:[id number] Oral 950 / 950 420 / 420 Other: # Voids 5 2 Date of Last Bowel Movement 05/16/18 # Bowel Movements 1 Result Diagrams: 05/19/18 06:21 05/19/18 06:21 Medications and IVs: Active Medications Acetaminophen (Tylenol) 650 mg PO Q4H PRN PRN Reason: Temp > 100.4 Al Hydroxide/Mg Hydroxide (Milk Of Magnesia Liq) 30 ml PO Q12H PRN PRN Reason: Mild Constipation Bisacodyl (Dulcolax Supp) 10 mg RECTAL DAILY PRN PRN Reason: SEVERE CONSITIPATION Duloxetine HCl (Cymbalta) 60 mg PO DAILY [facility] Last Admin: 05/19/18 09:40 Dose: 60 mg Hydrochlorothiazide (Hydrodiuril) 25 mg PO DAILY [facility] Last Admin: 05/19/18 09:40 Dose: 25 mg Sodium Chloride (Ns Inj) 1,000 mls @ 100 mls/hr IV.CONT .Q10H [facility] Last Admin: 05/19/18 01:25 Dose: 100 mls/hr Piperacillin/Tazobactam/Dextrose (Zosyn 3.375 Gm Premix) 50 mls @ 100 mls/hr IV.SIG Q6H [facility] Last Infusion: 05/19/18 10:26 Dose: Infused Vancomycin HCl 1,250 mg/ (Sodium Chloride) 262.5 mls @ 250 mls/hr IV.SIG Q12H [facility] Last Infusion: 05/19/18 10:08 Dose: Infused Lactulose (Lactulose Liq) 30 ml PO DAILY PRN PRN Reason: SEVERE CONSITIPATION Miscellaneous Information ([facility] Ordered Lab Info) 0 each OTHER ONCE ONE Stop: 05/20/18 05:46 Ondansetron HCl (Zofran Inj) 4 mg IV.PUSH Q6H PRN PRN Reason: NAUSEA OR VOMITING Oxycodone/Acetaminophen (Percocet 7.5/325 Mg) 1 tab PO Q4H PRN PRN Reason: pain 6-10 Last Admin: 05/19/18 09:40 Dose: 1 tab Pharmacy Profile Note (Vancomycin Consult Pharmacy) 1 each OTHER UNSCH PRN PRN Reason: Pharmacy to dose Senna/Docusate Sodium (Desiree-Colace) 1 tab PO BID [facility] Last Admin: 05/19/18 09:39 Dose: Not Given Sennosides (Senokot) 17.2 mg PO Q12H PRN PRN Reason: Moderate Constipation Sodium Chloride (Ns Flush) 2 ml IV.FLUSH PRN PRN PRN Reason: FLUSH AFTER USING IV ACCESS Sodium Chloride (Ns Flush) 2 ml IV.FLUSH PRN PRN PRN Reason: FLUSH AFTER USING IV ACCESS Objective Remarks: The patient appeared well. Wound dressing has not been changed yet today. It shows some leaking on the inferior borer with minimal scabbing/crusty drainage. Assessment and Plan Assessment and Plan: 1. Vulvar cellulits and abscess- I&D performed yesterday. Continue to pack, clean, and change dressing twice daily. Continue current antibiotics 2. Pain at the wound site- continue with Percocet. Due to pt hx she may have increased tolerance. Pain increases when packing and dressing change is performed.
[2018-05-19] MEDS: Acetaminophen 325 MG Tablet PO PRN (18:06)
--- NOTE | 2018-05-19 18:16 | P.PN ---
Subjective Interval history: Follow up for labial abscess/cellulitis. Patient is resting in bed. However, she complains that her redness and swelling are somewhat worse. No fever, chills. Patient underwent bedside I&D by Securities Settlement Processor yesterday. Physical Exam Vital signs: Vital Signs 05/18/18 20:00 05/19/18 00:00 05/19/18 04:00 Temperature 98.5 F 99.2 F 98.7 F Pulse Rate 81 83 107 H Respiratory Rate Blood Pressure 110/66 126/77 134/80 Pulse Oximetry 98 96 96 05/19/18 08:00 05/19/18 12:00 05/19/18 16:00 Temperature 99.4 F 98.7 F 97.8 F Pulse Rate 100 H 79 72 Respiratory Rate Blood Pressure 143/80 H 176/96 H 135/81 Pulse Oximetry 97 96 99 Intake & Output 05/18/18 05/19/18 05/19/18 18:59 06:59 18:59 Intake Total 2262.5 / 2262.5 1520 / 1520 2562.5 / 2562.5 Balance 2262.5 / 2262.5 1520 / 1520 2562.5 / 2562.5 Weight 86.8 kg Intake: IV 1312.5 / 1312.5 1100 / 1100 1362.5 / 1362.5 NS Inj 1,000 ML @ 100 mls/hr IV 1000 / 1000 1000 / 1000 1000 / 1000 .CONT .Q10H [facility] Rx#:[id number] Zosyn 3.375 GM Premix 50 ML @ 50 / 50 100 / 100 100 / 100 100 mls/hr IV.SIG Q6H [facility] Rx#: [id number] Vancomycin Inj 1,250 MG In NS 262.5 / 262.5 262.5 / 262.5 Inj 250 ML @ 250 mls/hr IV.SIG Q12H [facility] Rx#:[id number] Oral 950 / 950 420 / 420 1200 / 1200 Other: # Voids 5 2 3 Date of Last Bowel Movement 05/16/18 # Bowel Movements 1 1 Narrative: GENERAL: Alert, NAD. SKIN: Warm and dry. HEAD: Normocephalic. EYES: No scleral icterus. No injection or drainage. NECK: Supple, trachea midline. No JVD or lymphadenopathy. CARDIOVASCULAR: Regular rate and rhythm without murmurs, gallops, or rubs. RESPIRATORY: Breath sounds equal bilaterally. No accessory muscle use. GASTROINTESTINAL: Abdomen soft, non-tender, nondistended. MUSCULOSKELETAL: No cyanosis, or edema. : Mons pubis abscess. BACK: Nontender without obvious deformity. No CVA tenderness. Results - Labs CBC & Chem 7: 05/19/18 06:21 05/19/18 06:21 Laboratory Results - last 24 hr 05/19/18 05/19/18 06:21 06:21 WBC 24.8 H RBC 4.27 Hgb 12.7 Hct 37.9 MCV 88.7 MCH 29.8 MCHC 33.7 RDW 13.7 Plt Count 310 MPV 8.7 Neut % (Auto) 81.9 H Lymph % (Auto) 12.3 Williams % (Auto) 4.8 Eos % (Auto) 0.8 Baso % (Auto) 0.2 Neut # (Auto) 20.4 H Lymph # (Auto) 3.0 Williams # (Auto) 1.2 H Eos # (Auto) 0.2 Baso # (Auto) 0.0 WBC Differential . Differential Comment Auto diff final Sodium 137 Potassium 3.3 L Chloride 101 Carbon Dioxide 30.0 Anion Gap 6 BUN 6 L Creatinine 0.69 Estimated GFR Greater than 89 Random Glucose 76 Calcium 8.3 L Microbiology 05/18/18 22:25 Abscess - Other Gram Stain - Final 05/17/18 23:00 Blood - Peripheral Aerobic Blood Culture - Preliminary No growth in 2 days 05/17/18 23:00 Blood - Peripheral Anaerobic Blood Culture - Preliminary No growth in 2 days 05/17/18 22:50 Blood - Peripheral Aerobic Blood Culture - Preliminary No growth in 2 days 05/17/18 22:50 Blood - Peripheral Anaerobic Blood Culture - Preliminary No growth in 2 days Assessment and Plan - Plan 32-year-old female with past medical history of depression, hepatitis C and IV drug abuse who was admitted to the hospital due to mons pubis abscess. The abscess was lanced in the ED and patient was started on Abx. Subsequently, ID and mergers and acquisitions associate were consulted. Patient underwent bedside I&D by mergers and acquisitions associate on 2017. Mons Pubic abscess / Cellulitis - Appreciate ID and Securities Settlement Processor input. - Patient is currently on Vancomycin and Zosyn. - Percocet for pain Hypertension Anxiety/Depression - Continue HCTZ, Duloxetine Full code. Ambulation.
[2018-05-20] MEDS: Piperacil/Tazo 3.375 GM Premix 50 ML IV.SIG SCH ×4 (03:03→22:13)
[2018-05-20] MEDS ORDERED: Pharmacy Ordered Lab Info OTHER ONE (05:45)
[2018-05-20] MEDS: Sod Chloride 0.9% Inj 1,000 ML IV.CONT SCH ×2 (05:56→14:42)
[2018-05-20] MEDS: Vancomycin Inj 1,250 MG in Sodium Chlor 0.9% Inj 250 ML IV.SIG SCH (05:57)
[2018-05-20] MEDS: Senna/Docusate Sodium 8.6/50 MG Tablet PO SCH ×2 (09:45→20:31)
[2018-05-20] MEDS: hydroCHLOROthiazide 25 MG Tablet PO SCH (09:46)
[2018-05-20] MEDS: Duloxetine 60 MG DR Capsule PO SCH (09:46)
--- NOTE | 2018-05-20 13:27 | P.PN ---
Subjective Interval history: Follow-up pubic mons abscess and cellulitis May 20, 2018-patient seen and examined, quite lethargic this morning. Complains of worsening erythema. Afebrile Physical Exam Vital signs: Vital Signs 05/19/18 16:00 05/19/18 20:00 05/20/18 00:00 Temperature 97.8 F 98.4 F 97.9 F Pulse Rate 72 85 71 Respiratory Rate 18 18 18 Blood Pressure 135/81 113/70 128/88 Pulse Oximetry 99 98 100 05/20/18 04:00 05/20/18 08:00 Temperature 98.7 F 97.8 F Pulse Rate 87 87 Respiratory Rate 17 18 Blood Pressure 129/79 157/106 H Pulse Oximetry 94 L 97 Intake & Output 05/19/18 05/20/18 05/20/18 18:59 06:59 18:59 Intake Total 2825.0 / 2825.0 1580 / 1580 312.5 / 312.5 Balance 2825.0 / 2825.0 1580 / 1580 312.5 / 312.5 Intake: IV 1625.0 / 1625.0 1100 / 1100 312.5 / 312.5 NS Inj 1,000 ML @ 100 mls/hr IV 1000 / 1000 1000 / 1000 .CONT .Q10H [facility] Rx#:[id number] Zosyn 3.375 GM Premix 50 ML @ 100 / 100 100 / 100 50 / 50 100 mls/hr IV.SIG Q6H [facility] Rx#: [id number] Vancomycin Inj 1,250 MG In NS 525.0 / 525.0 262.5 / 262.5 Inj 250 ML @ 250 mls/hr IV.SIG Q12H [facility] Rx#:[id number] Oral 1200 / 1200 480 / 480 Other: # Voids 3 2 Date of Last Bowel Movement 05/19/18 # Bowel Movements 1 Narrative: GENERAL: Alert, NAD. SKIN: Warm and dry. HEAD: Normocephalic. EYES: No scleral icterus. No injection or drainage. NECK: Supple, trachea midline. No JVD or lymphadenopathy. CARDIOVASCULAR: Regular rate and rhythm without murmurs, gallops, or rubs. RESPIRATORY: Breath sounds equal bilaterally. No accessory muscle use. GASTROINTESTINAL: Abdomen soft, non-tender, nondistended. MUSCULOSKELETAL: No cyanosis, or edema. : Mons pubis abscess with surrounding erythema BACK: Nontender without obvious deformity. No CVA tenderness. Results - Labs CBC & Chem 7: 05/19/18 06:21 05/19/18 06:21 Laboratory Results - last 24 hr 05/20/18 05:45 Vancomycin Trough 16.8 H Microbiology 05/17/18 23:00 Blood - Peripheral Aerobic Blood Culture - Preliminary No growth in 3 days 05/17/18 23:00 Blood - Peripheral Anaerobic Blood Culture - Preliminary No growth in 3 days 05/17/18 22:50 Blood - Peripheral Aerobic Blood Culture - Preliminary No growth in 3 days 05/17/18 22:50 Blood - Peripheral Anaerobic Blood Culture - Preliminary No growth in 3 days 05/18/18 22:25 Abscess - Other Gram Stain - Final Assessment and Plan - Plan 32-year-old female with Mons Pubic abscess / Cellulitis - Appreciate ID and Bartenders input. - Patient is currently on Vancomycin and Zosyn. - Percocet for pain Hypertension Anxiety/Depression - Continue HCTZ, Duloxetine H/O IVDU Patient counselled against
--- NOTE | 2018-05-20 13:56 | P.PNID ---
Subjective Remarks: co worsening pain and spreading erythema states she is not improving at all Antibiotics: vanco zosyn Allergies/Adverse Reactions: Allergies No Known Allergies Allergy (Verified 05/17/18 21:35) Objective Vital Signs 05/19/18 16:00 05/19/18 20:00 05/20/18 00:00 Temperature 97.8 F 98.4 F 97.9 F Pulse Rate 72 85 71 Respiratory Rate 18 18 18 Blood Pressure 135/81 113/70 128/88 Pulse Oximetry 99 98 100 05/20/18 04:00 05/20/18 08:00 Temperature 98.7 F 97.8 F Pulse Rate 87 87 Respiratory Rate 17 18 Blood Pressure 129/79 157/106 H Pulse Oximetry 94 L 97 Intake & Output 05/19/18 05/20/18 05/20/18 18:59 06:59 18:59 Intake Total 2825.0 / 2825.0 1580 / 1580 312.5 / 312.5 Balance 2825.0 / 2825.0 1580 / 1580 312.5 / 312.5 Intake: IV 1625.0 / 1625.0 1100 / 1100 312.5 / 312.5 NS Inj 1,000 ML @ 100 mls/hr IV 1000 / 1000 1000 / 1000 .CONT .Q10H [facility] Rx#:[id number] Zosyn 3.375 GM Premix 50 ML @ 100 / 100 100 / 100 50 / 50 100 mls/hr IV.SIG Q6H [facility] Rx#: [id number] Vancomycin Inj 1,250 MG In NS 525.0 / 525.0 262.5 / 262.5 Inj 250 ML @ 250 mls/hr IV.SIG Q12H [facility] Rx#:[id number] Oral 1200 / 1200 480 / 480 Other: # Voids 3 2 Date of Last Bowel Movement 05/19/18 # Bowel Movements 1 05/17/18 23:00 Blood - Peripheral Aerobic Blood Culture - Preliminary No growth in 3 days 05/17/18 23:00 Blood - Peripheral Anaerobic Blood Culture - Preliminary No growth in 3 days 05/17/18 22:50 Blood - Peripheral Aerobic Blood Culture - Preliminary No growth in 3 days 05/17/18 22:50 Blood - Peripheral Anaerobic Blood Culture - Preliminary No growth in 3 days 05/18/18 22:25 Abscess - Other Gram Stain - Final 05/18/18 22:25 Abscess - Other Wound Culture - Pending Lab - Hematology Results 05/19/18 06:21 WBC 24.8 H RBC 4.27 Hgb 12.7 Hct 37.9 MCV 88.7 MCH 29.8 MCHC 33.7 RDW 13.7 Plt Count 310 MPV 8.7 Neut % (Auto) 81.9 H Lymph % (Auto) 12.3 [place] % (Auto) 4.8 Eos % (Auto) 0.8 Baso % (Auto) 0.2 Neut # (Auto) 20.4 H Lymph # (Auto) 3.0 [place] # (Auto) 1.2 H Eos # (Auto) 0.2 Baso # (Auto) 0.0 WBC Differential . Differential Comment Auto diff final Lab - Chemistry Results 05/19/18 06:21 Sodium 137 Potassium 3.3 L Chloride 101 Carbon Dioxide 30.0 Anion Gap 6 BUN 6 L Creatinine 0.69 Estimated GFR Greater than 89 Random Glucose 76 Calcium 8.3 L Imaging: ITS Impressions Abdomen/Pelvis CT 05/17/18 22:52 CONCLUSION: Cellulitis in the region of the vulva but no evidence of abscess. Probable left adrenal adenoma Hypodense liver compatible with fatty infiltration or hepatocellular disease. Physical Exam: GENERAL: NAD SKIN: Warm and dry. NO rash HEAD: Atraumatic. Normocephalic. EYES: Pupils equal and round. No scleral icterus. No injection or drainage. ENT: No nasal bleeding or discharge. Mucous membranes pink and moist. NECK: Trachea midline. No JVD. CARDIOVASCULAR: Regular rate and rhythm. RESPIRATORY: No accessory muscle use. Clear to auscultation. Breath sounds equal bilaterally. GASTROINTESTINAL: Abdomen soft, non-tender, nondistended. : Marked ertythema and indurationof L labia, L groin and suprapubic area wound is draining thick salmon coloured pus very tender to papation erythema extends to R side and to L side Not improving erythema MUSCULOSKELETAL: Extremities without clubbing, cyanosis, or edema. NEUROLOGICAL: Awake and alert. Non focal PSYCHIATRIC: Appropriate mood and affect; insight and judgment normal. Assessment and Plan - Plan Phlegmone and cellutlitis of L labia, suprapubic area, MRSA sp b/s I+D eralier in ER and @ b/s Not clinically imptrovinf cont IV vancomycin and zosyn will reconsult [facility] US for fluiod collection dw radiologist
--- NOTE | 2018-05-20 16:17 | US ---
EXAM DATE: 05/20/2018 12:00 AM EDT AGE/SEX: 32 years / Female INDICATIONS: Labial abscess. CLINICAL DATA: This is the patient's initial encounter. Patient reports that signs and symptoms have been present for 1 day and indicates a pain score of 10/10. MEDICAL/SURGICAL HISTORY: Hepatitis C. Hypertension. MRSA. section. Breast reduction surgery. Hernia repair. COMPARISON: No prior exams available for comparison. FINDINGS: There is subcutaneous edema in the labial region without loculated fluid. There is increased blood fl ow. CONCLUSION: 1. Subcutaneous edema in the labial region without loculated fluid. Electronically signed by: Lencho Cope MD 05/20/2018 4:15 PM EDT
[2018-05-20] MEDS: Vancomycin Inj 1,000 MG in Sodium Chlor 0.9% Inj 250 ML IV.SIG SCH (18:30)
[2018-05-21] MEDS: Vancomycin Inj 1,000 MG in Sodium Chlor 0.9% Inj 250 ML IV.SIG SCH ×2 (05:06→17:58)
[2018-05-21] MEDS: Piperacil/Tazo 3.375 GM Premix 50 ML IV.SIG SCH ×4 (05:06→21:13)
[2018-05-21] MEDS: Duloxetine 60 MG DR Capsule PO SCH (08:37)
[2018-05-21] MEDS: hydroCHLOROthiazide 25 MG Tablet PO SCH (08:37)
[2018-05-21] MEDS: Senna/Docusate Sodium 8.6/50 MG Tablet PO SCH ×2 (08:37→22:17)
[2018-05-21 09:13] LABS: Baso % (Auto) 0.2 % (0.0-2.0); Eos # (Auto) 0.3 th/mm3 (0.0-0.4); Eos % (Auto) 1.7 % (0.0-4.0); Hematocrit 34.2 % (35.0-46.0); Hemoglobin 11.6 gm/dL (11.6-15.3); Lymph # (Auto) 1.7 th/mm3 (1.0-4.8); Lymph % (Auto) 11.6 % (9.0-44.0); Mean Corpuscular Hemoglobin 30.2 pg (27.0-34.0); Mean Corpuscular Volume 88.7 fL (80.0-100.0); Mean Platelet Volume 8.6 fL (7.0-11.0); Neut # (Auto) 11.4 th/mm3 (1.8-7.7); Neut % (Auto) 79.5 % (16.0-70.0); Platelet Count 309 th/mm3 (150-450); Red Blood Count 3.85 mil/mm3 (4.00-5.30); Red Cell Distribution Width 13.5 % (11.6-17.2); White Blood Count 14.4 th/mm3 (4.0-11.0)
[2018-05-21 09:37] LABS: Albumin 2.6 g/dL (3.4-5.0); Anion Gap 6 meq/L (5-15); Aspartate Aminotransferase 33 U/L (15-37); Blood Urea Nitrogen 5 mg/dL (7-18); Calcium 8.6 mg/dL (8.5-10.1); Carbon Dioxide 31.8 meq/L (21.0-32.0); Chloride 101 meq/L (98-107); Glomerular Filtration Rate 38 mL/min (>89); Glucose,Random 138 mg/dL (74-106); Potassium 3.6 meq/L (3.5-5.1); Sodium 139 meq/L (136-145)
[2018-05-21 09:43] LABS: Alanine Aminotransferase 48 U/L (10-53); Alkaline Phosphatase 94 U/L (45-117); Total Protein 6.6 g/dL (6.4-8.2)
--- NOTE | 2018-05-21 09:59 | P.PN ---
Subjective Interval history: Follow-up Phlegmon and Cellulitis of Left Labia, suprapubic area, MRSA, status post I and D, in ER was not improving clinically. on Vancomycin and Zosyn, Sheep Clipper following, and ID specialist. 05/21: Stable in her bedroom in the presence of her significant other in the room also nurse Miss chowdhury present at all times while I was in the room, she has important erythema and edema, or her suprapubic area and extended to the thigh bilateral, continue present antibiotics and packing continue as per Nurse ans her significant other is also helping with her wound care. No nausea, vomit or diarrhea. Physical Exam Vital signs: Vital Signs 05/20/18 12:00 05/20/18 16:00 05/20/18 20:00 Temperature 98.6 F 97.6 F 98.5 F Pulse Rate 90 72 77 Respiratory Rate 16 16 17 Blood Pressure 118/90 132/88 138/93 H Pulse Oximetry 96 100 05/20/18 20:59 05/21/18 00:00 05/21/18 08:00 Temperature 98.5 F 97.5 F L 97.7 F Pulse Rate 77 87 73 Respiratory Rate 17 17 18 Blood Pressure 138/93 H 155/93 H 116/84 Pulse Oximetry 100 100 99 Intake & Output 05/20/18 05/21/18 05/21/18 18:59 06:59 18:59 Intake Total 1362.5 / 1362.5 1080 / 1080 Balance 1362.5 / 1362.5 1080 / 1080 Weight 87.8 kg Intake: IV 1362.5 / 1362.5 600 / 600 NS Inj 1,000 ML @ 100 mls/hr IV 1000 / 1000 .CONT .Q10H [facility] Rx#:[id number] Zosyn 3.375 GM Premix 50 ML @ 100 / 100 100 / 100 100 mls/hr IV.SIG Q6H [facility] Rx#: [id number] Vancomycin Inj 1,000 MG In NS 500 / 500 Inj 250 ML @ 250 mls/hr IV.SIG Q12H [facility] Rx#:[id number] Vancomycin Inj 1,250 MG In NS 262.5 / 262.5 Inj 250 ML @ 250 mls/hr IV.SIG Q12H [facility] Rx#:[id number] Oral 480 / 480 Other: # Voids 3 Date of Last Bowel Movement 05/19/18 Narrative: GENERAL: Alert, NAD. SKIN: Warm and dry. HEAD: Normocephalic. EYES: No scleral icterus. No injection or drainage. NECK: Supple, trachea midline. No JVD or lymphadenopathy. CARDIOVASCULAR: Regular rate and rhythm without murmurs, gallops, or rubs. RESPIRATORY: Breath sounds equal bilaterally. No accessory muscle use. GASTROINTESTINAL: Abdomen soft, non-tender, nondistended. MUSCULOSKELETAL: No cyanosis, or edema. BACK: Nontender without obvious deformity. No CVA tenderness. Erythema and edema on suprapubic area, packing in place. erythema to the upper part of the thigh. Results - Labs CBC & Chem 7: 05/21/18 08:20 05/21/18 08:20 Laboratory Results - last 24 hr 05/21/18 05/21/18 08:20 08:20 WBC 14.4 H RBC 3.85 L Hgb 11.6 Hct 34.2 L MCV 88.7 MCH 30.2 MCHC 34.0 RDW 13.5 Plt Count 309 MPV 8.6 Neut % (Auto) 79.5 H Lymph % (Auto) 11.6 [place] % (Auto) 7.0 Eos % (Auto) 1.7 Baso % (Auto) 0.2 Neut # (Auto) 11.4 H Lymph # (Auto) 1.7 [place] # (Auto) 1.0 H Eos # (Auto) 0.3 Baso # (Auto) 0.0 WBC Differential . Differential Comment Auto diff final Sodium 139 Potassium 3.6 Chloride 101 Carbon Dioxide 31.8 Anion Gap 6 BUN 5 L Creatinine 1.58 H Estimated GFR 38 L Random Glucose 138 H Calcium 8.6 Total Bilirubin 0.4 AST 33 ALT 48 Alkaline Phosphatase 94 Total Protein 6.6 D Albumin 2.6 L Microbiology 05/20/18 14:30 Abscess - Labia Gram Stain - Final 05/18/18 22:25 Abscess - Other Gram Stain - Final 05/18/18 22:25 Abscess - Other Wound Culture - Final S. aureus MRSA 05/17/18 23:00 Blood - Peripheral Aerobic Blood Culture - Preliminary No growth in 3 days 05/17/18 23:00 Blood - Peripheral Anaerobic Blood Culture - Preliminary No growth in 3 days 05/17/18 22:50 Blood - Peripheral Aerobic Blood Culture - Preliminary No growth in 3 days 05/17/18 22:50 Blood - Peripheral Anaerobic Blood Culture - Preliminary No growth in 3 days - Imaging Impressions Soft Tissue Ultrasound 05/20/18 00:00 CONCLUSION: 1. Subcutaneous edema in the labial region without loculated fluid. Assessment and Plan - Plan 32-year-old female with Mons Pubic abscess / Cellulitis - Appreciate ID and Sugar Drier input. - Patient is currently on Vancomycin and Zosyn. - Percocet for pain, continue wound care. Hypertension Anxiety/Depression - Continue HCTZ, Duloxetine H/O IVDU Patient counselled against Code Status: Full Code. Discussed Condition With: Patient, nurse Miss Chowdhury and her significant other in the room. Discharge Planning: once cleared by specialists.
[2018-05-22] MEDS: Piperacil/Tazo 3.375 GM Premix 50 ML IV.SIG SCH ×2 (04:06→09:04)
[2018-05-22] MEDS ORDERED: Pharmacy Ordered Lab Info OTHER ONE (05:45)
[2018-05-22] MEDS: Vancomycin Inj 1,000 MG in Sodium Chlor 0.9% Inj 250 ML IV.SIG SCH (05:52)
[2018-05-22] MEDS: Duloxetine 60 MG DR Capsule PO SCH (09:04)
[2018-05-22] MEDS: Senna/Docusate Sodium 8.6/50 MG Tablet PO SCH ×2 (09:05→22:23)
[2018-05-22] MEDS: hydroCHLOROthiazide 25 MG Tablet PO SCH (09:05)
[2018-05-22] MEDS: Sod Chloride 0.9% Inj 1,000 ML IV.CONT SCH ×2 (13:58→23:24)
--- NOTE | 2018-05-22 15:44 | P.PNID ---
Subjective Remarks: better Her other abscess popped and self drained she feels much better now less pain afebrile WBC down to 14 K Vanco levels high @ 22 Antibiotics: vanco zosyn Allergies/Adverse Reactions: Allergies No Known Allergies Allergy (Verified 05/17/18 21:35) Objective Vital Signs 05/21/18 15:46 05/21/18 20:00 05/22/18 00:00 Temperature 98.5 F 97.4 F L 97.4 F L Pulse Rate 70 64 68 Respiratory Rate 18 16 16 Blood Pressure 136/87 122/78 118/78 Pulse Oximetry 99 100 100 05/22/18 08:00 05/22/18 12:00 Temperature 98.2 F 98.2 F Pulse Rate 57 L 60 Respiratory Rate 18 17 Blood Pressure 126/86 127/79 Pulse Oximetry 99 100 Intake & Output 05/21/18 05/22/18 05/22/18 18:59 06:59 18:59 Intake Total 350 / 350 350 / 350 50 / 50 Balance 350 / 350 350 / 350 50 / 50 Intake: IV 350 / 350 350 / 350 50 / 50 Zosyn 3.375 GM Premix 50 ML @ 100 / 100 100 / 100 50 / 50 100 mls/hr IV.SIG Q6H [facility] Rx#: [id number] Vancomycin Inj 1,000 MG In NS 250 / 250 250 / 250 Inj 250 ML @ 250 mls/hr IV.SIG Q12H [facility] Rx#:[id number] Other: # Voids 2 3 Date of Last Bowel Movement 05/21/18 # Bowel Movements 2 05/20/18 14:30 Abscess - Labia Gram Stain - Final 05/20/18 14:30 Abscess - Labia Wound Culture - Final S. aureus MRSA 05/17/18 23:00 Blood - Peripheral Aerobic Blood Culture - Final No growth in 5 days 05/17/18 23:00 Blood - Peripheral Anaerobic Blood Culture - Final No growth in 5 days 05/17/18 22:50 Blood - Peripheral Aerobic Blood Culture - Final No growth in 5 days 05/17/18 22:50 Blood - Peripheral Anaerobic Blood Culture - Final No growth in 5 days 05/18/18 22:25 Abscess - Other Gram Stain - Final 05/18/18 22:25 Abscess - Other Wound Culture - Final S. aureus MRSA Lab - Hematology Results 05/21/18 08:20 WBC 14.4 H RBC 3.85 L Hgb 11.6 Hct 34.2 L MCV 88.7 MCH 30.2 MCHC 34.0 RDW 13.5 Plt Count 309 MPV 8.6 Neut % (Auto) 79.5 H Lymph % (Auto) 11.6 [place] % (Auto) 7.0 Eos % (Auto) 1.7 Baso % (Auto) 0.2 Neut # (Auto) 11.4 H Lymph # (Auto) 1.7 [place] # (Auto) 1.0 H Eos # (Auto) 0.3 Baso # (Auto) 0.0 WBC Differential . Differential Comment Auto diff final Lab - Chemistry Results 05/21/18 08:20 Sodium 139 Potassium 3.6 Chloride 101 Carbon Dioxide 31.8 Anion Gap 6 BUN 5 L Creatinine 1.58 H Estimated GFR 38 L Random Glucose 138 H Calcium 8.6 Total Bilirubin 0.4 AST 33 ALT 48 Alkaline Phosphatase 94 Total Protein 6.6 D Albumin 2.6 L Imaging: ITS Impressions Abdomen/Pelvis CT 05/17/18 22:52 CONCLUSION: Cellulitis in the region of the vulva but no evidence of abscess. Probable left adrenal adenoma Hypodense liver compatible with fatty infiltration or hepatocellular disease. Soft Tissue Ultrasound 05/20/18 00:00 CONCLUSION: 1. Subcutaneous edema in the labial region without loculated fluid. Physical Exam: GENERAL: NAD SKIN: Warm and dry. NO rash EYES: No scleral icterus. RESPIRATORY: No accessory muscle use. Breathing unlaboured GASTROINTESTINAL: Abdomen soft, non-tender, nondistended. : Markedly iimproved ertythema and induration of L labia, L groin and suprapubic area wound is packed tenderness to papation markedly improved erythema improving MUSCULOSKELETAL: Extremities without clubbing, cyanosis, or edema. NEUROLOGICAL: Awake and alert. Non focal PSYCHIATRIC: Appropriate mood and affect; l. Assessment and Plan - Plan Phlegmone and cellutlitis of L labia, suprapubic area, MRSA sp b/s I+D eralier in ER and @ b/s Not clinically imptroving US negative for fluid collection cont IV vancomycin dc zosyn If cont to improve d/c on oral abx (doxycylyne 100 BID or Bactrim DS 2 bid ) to complete 14 days from the day of I+D
--- NOTE | 2018-05-22 16:51 | P.PNIM ---
Subjective Interval history: 32-year-old female with past medical history of depression, hepatitis C and IV drug abuse presents to the emergency department for evaluation of pubic cellulitis. The patient reports approximately 3-4 days ago she noticed a small red bump which she thought was an ingrown hair over the left side of her pubic bone. She reports an increase in pain and redness since that time. She endorses associated fever/chills. Also complains of diarrhea. No abdominal pain. No previous antibiotic use. No nausea/vomiting. No chest pain or shortness of breath. Patient seen and examined. Patient was admitted due to left-sided labial cellulitis/abscess. She continues to have fever as well as significant pain. We consulted infectious disease who in turn also consulted PAINT MIXER HAND for possible I &D. Patient is currently on vancomycin and Zosyn per ID recommendations. 05-19 Follow up for labial abscess/cellulitis. Patient is resting in bed. However, she complains that her redness and swelling are somewhat worse. No fever, chills. Patient underwent bedside I&D by Tangled Yarn Spool Straightener yesterday. 05-20 Follow-up pubic mons abscess and cellulitis May 20, 2018-patient seen and examined, quite lethargic this morning. Complains of worsening erythema. Afebrile 05-21 Follow-up Phlegmon and Cellulitis of Left Labia, suprapubic area, MRSA, status post I and D, in ER was not improving clinically. on Vancomycin and Zosyn, K 9 Handler/ Deputy following, and ID specialist. 05/21: Stable in her bedroom in the presence of her significant other in the room also nurse Miss chowdhury present at all times while I was in the room, she has important erythema and edema, or her suprapubic area and extended to the thigh bilateral, continue present antibiotics and packing continue as per Nurse ans her significant other is also helping with her wound care. No nausea, vomit or diarrhea. 05-22 SEEN BY ID RECONSULT CHILD CARE DEVELOPMENT SPECIALIST FOR ABSCESS OTHER ABSCESS OPENED AND SELF DRAINED HAS PHLEGMON AND CELLULITIS OF LEFT LABIA, SUPRAPUBIC AREA WITH MRSA SP I AND D AM LABS IV FLUIDS DW RN AND PT AND CM Physical Exam Vital signs: Vital Signs 05/21/18 20:00 05/22/18 00:00 05/22/18 08:00 Temperature 97.4 F L 97.4 F L 98.2 F Pulse Rate 64 68 57 L Respiratory Rate 16 16 18 Blood Pressure 122/78 118/78 126/86 Pulse Oximetry 100 100 99 05/22/18 12:00 Temperature 98.2 F Pulse Rate 60 Respiratory Rate 17 Blood Pressure 127/79 Pulse Oximetry 100 Intake & Output 05/21/18 05/22/18 05/22/18 18:59 06:59 18:59 Intake Total 350 / 350 350 / 350 50 / 50 Balance 350 / 350 350 / 350 50 / 50 Intake: IV 350 / 350 350 / 350 50 / 50 Zosyn 3.375 GM Premix 50 ML @ 100 / 100 100 / 100 50 / 50 100 mls/hr IV.SIG Q6H [facility] Rx#: [id number] Vancomycin Inj 1,000 MG In NS 250 / 250 250 / 250 Inj 250 ML @ 250 mls/hr IV.SIG Q12H [facility] Rx#:[id number] Other: # Voids 2 3 Date of Last Bowel Movement 05/21/18 # Bowel Movements 2 Narrative: GENERAL: Alert, NAD. SKIN: Warm and dry. HEAD: Normocephalic. EYES: No scleral icterus. No injection or drainage. NECK: Supple, trachea midline. No JVD or lymphadenopathy. CARDIOVASCULAR: Regular rate and rhythm without murmurs, gallops, or rubs. RESPIRATORY: Breath sounds equal bilaterally. No accessory muscle use. GASTROINTESTINAL: Abdomen soft, non-tender, nondistended. MUSCULOSKELETAL: No cyanosis, or edema. BACK: Nontender without obvious deformity. No CVA tenderness. LESS Erythema and LESS edema on suprapubic area, packing in place. LESS erythema to the upper part of the thigh. Results - Labs CBC & Chem 7: 05/21/18 08:20 05/21/18 08:20 Laboratory Results - last 24 hr 05/22/18 05:46 Vancomycin Trough 22.0 H Microbiology 05/20/18 14:30 Abscess - Labia Gram Stain - Final 05/20/18 14:30 Abscess - Labia Wound Culture - Final S. aureus MRSA 05/17/18 23:00 Blood - Peripheral Aerobic Blood Culture - Final No growth in 5 days 05/17/18 23:00 Blood - Peripheral Anaerobic Blood Culture - Final No growth in 5 days 05/17/18 22:50 Blood - Peripheral Aerobic Blood Culture - Final No growth in 5 days 05/17/18 22:50 Blood - Peripheral Anaerobic Blood Culture - Final No growth in 5 days - Imaging ITS Impressions Abdomen/Pelvis CT 05/17/18 22:52 CONCLUSION: Cellulitis in the region of the vulva but no evidence of abscess. Probable left adrenal adenoma Hypodense liver compatible with fatty infiltration or hepatocellular disease. Soft Tissue Ultrasound 05/20/18 00:00 CONCLUSION: 1. Subcutaneous edema in the labial region without loculated fluid. - Procedures I AND D IN THE ER Assessment and Plan - Plan 32-year-old female with Mons Pubic abscess / Cellulitis - Appreciate ID and Tangled Yarn Spool Straightener input. - Patient is currently ANTIBIOTICS ADJUSTED PER ID ONLY ON VANCO - Percocet for pain, continue wound care. MRSA OF WOUND SENSITIVE TO BACTRIM AND DOXY PER ID RENAL INSUFFICIENCY/DEHYDRATION CONTINUE IV FLUIDS AM LAB Hypertension Anxiety/Depression - Continue HCTZ, Duloxetine H/O IVDU Patient counselled against Code Status: FULL CODE Discussed Condition With: RN AND PT AND CM Discharge Planning: ONCE CLEARED BY ID
[2018-05-22 22:22] LABS: Hepatitits B Surface Antigen Nonreactive (Nonreactive)
[2018-05-22 23:07] LABS: Hepatitis A IgM Antibody Nonreactive (Nonreactive)
[2018-05-23] MEDS: Sod Chloride 0.9% Inj 1,000 ML IV.CONT SCH ×2 (05:41→17:42)
[2018-05-23 07:23] LABS: Baso % (Auto) 0.1 % (0.0-2.0); Eos # (Auto) 0.3 th/mm3 (0.0-0.4); Eos % (Auto) 1.6 % (0.0-4.0); Hematocrit 33.9 % (35.0-46.0); Hemoglobin 11.4 gm/dL (11.6-15.3); Lymph # (Auto) 1.4 th/mm3 (1.0-4.8); Lymph % (Auto) 8.8 % (9.0-44.0); Mean Corpuscular HGB Conc 33.6 % (32.0-36.0); Mean Corpuscular Hemoglobin 29.6 pg (27.0-34.0); Mean Corpuscular Volume 88.1 fL (80.0-100.0); Mean Platelet Volume 8.4 fL (7.0-11.0); Mono # (Auto) 1.3 th/mm3 (0.0-0.9); Mono % (Auto) 8.2 % (0.0-8.0); Neut # (Auto) 13.1 th/mm3 (1.8-7.7); Neut % (Auto) 81.3 % (16.0-70.0); Platelet Count 350 th/mm3 (150-450); Red Blood Count 3.84 mil/mm3 (4.00-5.30); Red Cell Distribution Width 13.2 % (11.6-17.2); White Blood Count 16.1 th/mm3 (4.0-11.0)
[2018-05-23 07:56] LABS: Alanine Aminotransferase 37 U/L (10-53); Albumin 2.6 g/dL (3.4-5.0); Alkaline Phosphatase 86 U/L (45-117); Anion Gap 7 meq/L (5-15); Aspartate Aminotransferase 28 U/L (15-37); Blood Urea Nitrogen 4 mg/dL (7-18); Calcium 8.4 mg/dL (8.5-10.1); Carbon Dioxide 31.2 meq/L (21.0-32.0); Chloride 100 meq/L (98-107); Free T4 (Free Thyroxine) 1.24 ng/dL (0.76-1.46); Glomerular Filtration Rate 46 mL/min (>89); Glucose,Random 85 mg/dL (74-106); Magnesium 1.6 mg/dL (1.5-2.5); Phosphorus 3.3 mg/dL (2.5-4.9); Sodium 138 meq/L (136-145); Total Protein 6.5 g/dL (6.4-8.2); Vancomycin,Random 13.2 Comment
[2018-05-23 08:04] LABS: Potassium 2.9 meq/L (3.5-5.1)
[2018-05-23] MEDS: Duloxetine 60 MG DR Capsule PO SCH (09:11)
[2018-05-23] MEDS: hydroCHLOROthiazide 25 MG Tablet PO SCH (09:11)
[2018-05-23] MEDS: Senna/Docusate Sodium 8.6/50 MG Tablet PO SCH ×2 (09:12→20:00)
[2018-05-23] MEDS ORDERED: Magnesium Sulfate Inj 2 GM in Sodium Chlor 0.9% Inj 96 ML IV.SIG ONE (10:00)
[2018-05-23] MEDS: Vancomycin Inj 1,250 MG in Sodium Chlor 0.9% Inj 250 ML IV.SIG SCH (12:40)
--- NOTE | 2018-05-23 14:24 | P.CONOB ---
History of Present Illness Primary Care Physician: Luci Benjamin Chief Complaint: Severe pain in the suprapubic region with increasing redness swelling and i History of Present Illness: 32-year-old female with past medical history of depression, hepatitis C and IV drug abuse presents to the emergency department for evaluation of pubic cellulitis. Rash has improved over 50% since admission, incision and drainage, and vancomycin administration. Patient states she is now able to walk without difficulty. She denies any tenderness over the area. Minimal drainage. No areas of pus. No new lesions. Review of Systems All other systems reviewed negative except as stated in HPI PMFSH - History History Provided By: Patient - Medical History Medical History: Medical History (Last Updated 05/22/18 @ 11:56 by Maddison Black) Depression HTN (hypertension) Hepatitis C MDRO (multiple drug resistant organisms) resistance Onset Date: ~05/20/18 - Surgical History Surgical History: Surgical History (Last Reviewed 05/18/18 @ 14:23 by Marilyn Clark MD) H/O hernia repair History of bilateral breast reduction surgery Hx of section - Family History Family History: Family History (Last Reviewed 05/18/18 @ 14:23 by Marilyn Clark MD) Other Family history normal - Tobacco History Second Hand Smoke Exposure: No Tobacco Use In Past 30 Days: Yes Smoking Status: Current every day smoker Tobacco Type: Cigarettes - Alcohol History How Often Do You Have a Drink Containing Alcohol: 2 to 4 times a month - Substance Use History Substance History: Active Abuse - Substance Use Type Marijuana Status: Active Route Used: By Mouth Frequency: couple times a week Last Used: 05/17/18 Reason for Use: Feels Good Heroin Status: Active Route Used: Intravenously Frequency: 2-3 times a week Last Used: 05/17/18 Reason for Use: Feels Good Crack/Cocaine Status: Active Route Used: Inhalation Frequency: rarely Last Used: 05/17/18 Reason for Use: Feels Good - Travel History Recent Travel in the [place] Within the Last 8 Weeks: No Recent Travel Out of the Country Within the Last 8 Weeks: No - Immunization History Tetanus Immunization: Unsure Hx Influenza Vaccine This Season: No Medications and Allergies Active Medications: Active Medications Acetaminophen (Tylenol) 650 mg PO Q4H PRN PRN Reason: Headache, fever, pain 1-5 Last Admin: 05/19/18 18:06 Dose: 650 mg Al Hydroxide/Mg Hydroxide (Milk Of Magnesia Liq) 30 ml PO Q12H PRN PRN Reason: Mild Constipation Bisacodyl (Dulcolax Supp) 10 mg RECTAL DAILY PRN PRN Reason: SEVERE CONSITIPATION Calcium Carbonate (Tums Chew) 500 mg CHEW Q2H PRN PRN Reason: INDIGESTION Last Admin: 05/22/18 23:23 Dose: 500 mg Duloxetine HCl (Cymbalta) 60 mg PO DAILY [facility] Last Admin: 05/23/18 09:11 Dose: 60 mg Hydrochlorothiazide (Hydrodiuril) 25 mg PO DAILY [facility] Last Admin: 05/23/18 09:11 Dose: 25 mg Sodium Chloride (Ns Inj) 1,000 mls @ 100 mls/hr IV.CONT .Q10H [facility] Last Admin: 05/23/18 05:41 Dose: 100 mls/hr Vancomycin HCl 1,250 mg/ (Sodium Chloride) 262.5 mls @ 250 mls/hr IV.SIG Q24H [facility] Last Infusion: 05/23/18 13:52 Dose: Infused Lactulose (Lactulose Liq) 30 ml PO DAILY PRN PRN Reason: SEVERE CONSITIPATION Miscellaneous Information ([facility] Ordered Lab Info) 0 each OTHER ONCE ONE Stop: 05/26/18 10:46 Ondansetron HCl (Zofran Inj) 4 mg IV.PUSH Q6H PRN PRN Reason: NAUSEA OR VOMITING Last Admin: 05/22/18 06:47 Dose: 4 mg Oxycodone/Acetaminophen (Percocet 7.5/325 Mg) 1 tab PO Q4H PRN PRN Reason: pain 6-10 Last Admin: 05/23/18 10:29 Dose: 1 tab Pharmacy Profile Note (Vancomycin Consult Pharmacy) 1 each OTHER UNSCH PRN PRN Reason: Pharmacy to dose Senna/Docusate Sodium (Desiree-Colace) 1 tab PO BID [facility] Last Admin: 05/23/18 09:12 Dose: Not Given Sennosides (Senokot) 17.2 mg PO Q12H PRN PRN Reason: Moderate Constipation Sodium Chloride (Ns Flush) 2 ml IV.FLUSH PRN PRN PRN Reason: FLUSH AFTER USING IV ACCESS Allergies Allergy/AdvReac Type Severity Reaction Status Date / Time No Known Allergies Allergy Verified 05/17/18 21:35 Home Medications Medication Instructions Recorded Confirmed Type duloxetine [Cymbalta] 60 mg PO DAILY 05/17/18 05/17/18 History hydrochlorothiazide 25 mg PO DAILY 05/17/18 05/17/18 History Exam Vital signs: Vital Signs 05/22/18 16:00 05/22/18 20:00 05/23/18 00:00 Temperature 97.9 F 98.7 F 98.3 F Pulse Rate 57 L 69 74 Respiratory Rate 18 Blood Pressure 156/97 H 149/86 H 147/97 H Pulse Oximetry 100 97 96 05/23/18 04:00 05/23/18 08:00 05/23/18 12:00 Temperature 99.5 F 98.9 F 97.8 F Pulse Rate 94 H 82 67 Respiratory Rate 18 18 19 Blood Pressure 131/73 131/78 137/93 H Pulse Oximetry 96 91 L 99 Intake & Output 05/22/18 05/23/18 05/23/18 18:59 06:59 18:59 Intake Total 1000 / 1000 2080 / 2080 362.5 / 362.5 Balance 1000 / 1000 2080 / 2080 362.5 / 362.5 Weight 90.9 kg Intake: IV 50 / 50 1600 / 1600 362.5 / 362.5 NS Inj 1,000 ML @ 100 mls/hr IV 1600 / 1600 .CONT .Q10H [facility] Rx#:[id number] Magnesium Sulfate Inj 2 GM In 100 / 100 NS Inj 96 ML @ 50 mls/hr IV.SIG ONCE ONE Rx#:[id number] Zosyn 3.375 GM Premix 50 ML @ 50 / 50 100 mls/hr IV.SIG Q6H [facility] Rx#: [id number] Vancomycin Inj 1,250 MG In NS 262.5 / 262.5 Inj 250 ML @ 250 mls/hr IV.SIG Q24H [facility] Rx#:[id number] Oral 950 / 950 480 / 480 Other: # Voids 6 3 Date of Last Bowel Movement 05/22/18 05/23/18 # Bowel Movements 1 Narrative: Genitourinary: 4 x 4 area of induration and erythema, with central incision draining with minimal drainage packing removed and replaced with nursing present. Q-tip inserted 2 half centimeter in depth. Results - Labs CBC & Chem 7: 05/23/18 06:37 05/23/18 06:37 Labs: Laboratory Results - last 24 hr 05/22/18 05/23/18 05/23/18 18:50 06:37 06:37 WBC 16.1 H RBC 3.84 L Hgb 11.4 L Hct 33.9 L MCV 88.1 MCH 29.6 MCHC 33.6 RDW 13.2 Plt Count 350 MPV 8.4 Neut % (Auto) 81.3 H Lymph % (Auto) 8.8 L [place] % (Auto) 8.2 H Eos % (Auto) 1.6 Baso % (Auto) 0.1 Neut # (Auto) 13.1 H Lymph # (Auto) 1.4 [place] # (Auto) 1.3 H Eos # (Auto) 0.3 Baso # (Auto) 0.0 WBC Differential . Differential Comment Auto diff final Sodium 138 Potassium 2.9 L* Chloride 100 Carbon Dioxide 31.2 Anion Gap 7 BUN 4 L Creatinine 1.36 H Estimated GFR 46 L Random Glucose 85 Calcium 8.4 L Phosphorus 3.3 Magnesium 1.6 Total Bilirubin 0.3 AST 28 ALT 37 Alkaline Phosphatase 86 Total Protein 6.5 Albumin 2.6 L TSH 3.010 Free T4 1.24 Random Vancomycin 13.2 Hepatitis A IgM Ab Nonreactive Hep Bs Antigen Nonreactive Hep B Core IgM Ab Nonreactive Hep C IgG Ab Reactive H Assessment and Plan - Plan This is a mons pubis cellulitis with drained abscess, improving -Continue vancomycin with MRSA coverage, continue twice daily packing changes, continue to keep area sterile, continue to monitor improvement -COPYRIGHT MANAGER service will continue to monitor as needed
--- NOTE | 2018-05-23 15:12 | P.PNIM ---
Subjective Interval history: 32-year-old female with past medical history of depression, hepatitis C and IV drug abuse presents to the emergency department for evaluation of pubic cellulitis. The patient reports approximately 3-4 days ago she noticed a small red bump which she thought was an ingrown hair over the left side of her pubic bone. She reports an increase in pain and redness since that time. She endorses associated fever/chills. Also complains of diarrhea. No abdominal pain. No previous antibiotic use. No nausea/vomiting. No chest pain or shortness of breath. Patient seen and examined. Patient was admitted due to left-sided labial cellulitis/abscess. She continues to have fever as well as significant pain. We consulted infectious disease who in turn also consulted DIGITAL CONTENT MANAGER for possible I &D. Patient is currently on vancomycin and Zosyn per ID recommendations. 05-19 Follow up for labial abscess/cellulitis. Patient is resting in bed. However, she complains that her redness and swelling are somewhat worse. No fever, chills. Patient underwent bedside I&D by Musical Therapist yesterday. 05-20 Follow-up pubic mons abscess and cellulitis May 20, 2018-patient seen and examined, quite lethargic this morning. Complains of worsening erythema. Afebrile 05-21 Follow-up Phlegmon and Cellulitis of Left Labia, suprapubic area, MRSA, status post I and D, in ER was not improving clinically. on Vancomycin and Zosyn, Garbage Person following, and ID specialist. 05/21: Stable in her bedroom in the presence of her significant other in the room also nurse Miss chowdhury present at all times while I was in the room, she has important erythema and edema, or her suprapubic area and extended to the thigh bilateral, continue present antibiotics and packing continue as per Nurse ans her significant other is also helping with her wound care. No nausea, vomit or diarrhea. 05-22 SEEN BY ID RECONSULT HEALTH PROGRAM SPECIALIST FOR ABSCESS OTHER ABSCESS OPENED AND SELF DRAINED HAS PHLEGMON AND CELLULITIS OF LEFT LABIA, SUPRAPUBIC AREA WITH MRSA SP I AND D AM LABS IV FLUIDS DW RN AND PT AND CM 05-23 SLOW IMPROVEMENT POTASSIUM AND MAGNESIUM ARE OFF WILL REPLACE DW RN AND PT AND CM SEEN BY HEALTH PROGRAM SPECIALIST CONTINUE ANTIBIOTICS AND FLUIDS AM LABS Physical Exam Vital signs: Vital Signs 05/22/18 16:00 05/22/18 20:00 05/23/18 00:00 Temperature 97.9 F 98.7 F 98.3 F Pulse Rate 57 L 69 74 Respiratory Rate 17 18 18 Blood Pressure 156/97 H 149/86 H 147/97 H Pulse Oximetry 100 97 96 05/23/18 04:00 05/23/18 08:00 05/23/18 12:00 Temperature 99.5 F 98.9 F 97.8 F Pulse Rate 94 H 82 67 Respiratory Rate 18 18 19 Blood Pressure 131/73 131/78 137/93 H Pulse Oximetry 96 91 L 99 Intake & Output 05/22/18 05/23/18 05/23/18 18:59 06:59 18:59 Intake Total 1000 / 1000 2079 / 0 362.5 / 362.5 Balance 1000 / 1000 2079 / 2079 362.5 / 362.5 Weight 90.9 kg Intake: IV 50 / 50 1600 / 1600 362.5 / 362.5 NS Inj 1,000 ML @ 100 mls/hr IV 1600 / 1600 .CONT .Q10H [facility] Rx#:[id number] Magnesium Sulfate Inj 2 GM In 100 / 100 NS Inj 96 ML @ 50 mls/hr IV.SIG ONCE ONE Rx#:[id number] Zosyn 3.375 GM Premix 50 ML @ 50 / 50 100 mls/hr IV.SIG Q6H [facility] Rx#: [id number] Vancomycin Inj 1,250 MG In NS 262.5 / 262.5 Inj 250 ML @ 250 mls/hr IV.SIG Q24H [facility] Rx#:[id number] Oral 950 / 950 480 / 480 Other: # Voids 6 3 Date of Last Bowel Movement 05/22/18 05/23/18 # Bowel Movements 1 Narrative: GENERAL: Alert, NAD. SKIN: Warm and dry. HEAD: Normocephalic. EYES: No scleral icterus. No injection or drainage. NECK: Supple, trachea midline. No JVD or lymphadenopathy. CARDIOVASCULAR: Regular rate and rhythm without murmurs, gallops, or rubs. RESPIRATORY: Breath sounds equal bilaterally. No accessory muscle use. GASTROINTESTINAL: Abdomen soft, non-tender, nondistended. MUSCULOSKELETAL: No cyanosis, or edema. BACK: Nontender without obvious deformity. No CVA tenderness. LESS Erythema and LESS edema on suprapubic area, packing IS OUT- LESS erythema to the upper part of the thigh. Genitourinary: 4 x 4 area of induration and erythema, with central incision draining with minimal drainage packing OUT WILL BE replaced --EXAMINED WITH A FEMALE RN PRESENT Results - Labs CBC & Chem 7: 05/23/18 06:37 05/23/18 06:37 Laboratory Results - last 24 hr 05/22/18 05/23/18 05/23/18 18:50 06:37 06:37 WBC 16.1 H RBC 3.84 L Hgb 11.4 L Hct 33.9 L MCV 88.1 MCH 29.6 MCHC 33.6 RDW 13.2 Plt Count 350 MPV 8.4 Neut % (Auto) 81.3 H Lymph % (Auto) 8.8 L [place] % (Auto) 8.2 H Eos % (Auto) 1.6 Baso % (Auto) 0.1 Neut # (Auto) 13.1 H Lymph # (Auto) 1.4 [place] # (Auto) 1.3 H Eos # (Auto) 0.3 Baso # (Auto) 0.0 WBC Differential . Differential Comment Auto diff final Sodium 138 Potassium 2.9 L* Chloride 100 Carbon Dioxide 31.2 Anion Gap 7 BUN 4 L Creatinine 1.36 H Estimated GFR 46 L Random Glucose 85 Calcium 8.4 L Phosphorus 3.3 Magnesium 1.6 Total Bilirubin 0.3 AST 28 ALT 37 Alkaline Phosphatase 86 Total Protein 6.5 Albumin 2.6 L TSH 3.010 Free T4 1.24 Random Vancomycin 13.2 Hepatitis A IgM Ab Nonreactive Hep Bs Antigen Nonreactive Hep B Core IgM Ab Nonreactive Hep C IgG Ab Reactive H Microbiology 05/20/18 14:30 Abscess - Labia Gram Stain - Final 05/20/18 14:30 Abscess - Labia Wound Culture - Final S. aureus MRSA - Imaging ITS Impressions Abdomen/Pelvis CT 05/17/18 22:52 CONCLUSION: Cellulitis in the region of the vulva but no evidence of abscess. Probable left adrenal adenoma Hypodense liver compatible with fatty infiltration or hepatocellular disease. Soft Tissue Ultrasound 05/20/18 00:00 CONCLUSION: 1. Subcutaneous edema in the labial region without loculated fluid. - Procedures I AND D IN THE ER Assessment and Plan - Plan 32-year-old female with Mons Pubic abscess / Cellulitis - Appreciate ID and Musical Therapist input. - Patient is currently ANTIBIOTICS ADJUSTED PER ID ONLY ON VANCO - Percocet for pain, continue wound care. MRSA OF WOUND SENSITIVE TO BACTRIM AND DOXY PER ID RENAL INSUFFICIENCY/DEHYDRATION CONTINUE IV FLUIDS AM LAB HYPOKALEMIA -WILL REPLACE WITH ORAL HYPOMAGNESIA WILL REPLACE WITH IV REPLACEMENT Hypertension Anxiety/Depression - Continue HCTZ, Duloxetine H/O IVDU Patient counselled against Code Status: FULL CODE Discussed Condition With: RN AND PT AND CM Discharge Planning: ONCE CLEARED BY ID AND HEALTH PROGRAM SPECIALIST
[2018-05-23 20:26] LABS: Hemoglobin A1c 5.6 % (4.3-6.0)
[2018-05-24] MEDS: Sod Chloride 0.9% Inj 1,000 ML IV.CONT SCH ×2 (05:32→17:53)
[2018-05-24 08:42] LABS: Baso % (Auto) 0.2 % (0.0-2.0); Eos # (Auto) 0.2 th/mm3 (0.0-0.4); Eos % (Auto) 1.6 % (0.0-4.0); Hematocrit 35.2 % (35.0-46.0); Hemoglobin 11.9 gm/dL (11.6-15.3); Lymph # (Auto) 1.4 th/mm3 (1.0-4.8); Lymph % (Auto) 9.8 % (9.0-44.0); Mean Corpuscular HGB Conc 33.9 % (32.0-36.0); Mean Corpuscular Hemoglobin 29.8 pg (27.0-34.0); Mean Platelet Volume 8.1 fL (7.0-11.0); Mono % (Auto) 7.2 % (0.0-8.0); Neut # (Auto) 11.6 th/mm3 (1.8-7.7); Neut % (Auto) 81.2 % (16.0-70.0); Platelet Count 326 th/mm3 (150-450); Red Cell Distribution Width 13.5 % (11.6-17.2); White Blood Count 14.2 th/mm3 (4.0-11.0)
[2018-05-24] MEDS: Duloxetine 60 MG DR Capsule PO SCH (08:45)
[2018-05-24] MEDS: Senna/Docusate Sodium 8.6/50 MG Tablet PO SCH ×2 (08:45→22:33)
[2018-05-24] MEDS: hydroCHLOROthiazide 25 MG Tablet PO SCH (08:45)
[2018-05-24 08:53] LABS: Alanine Aminotransferase 34 U/L (10-53); Albumin 2.5 g/dL (3.4-5.0); Anion Gap 6 meq/L (5-15); Aspartate Aminotransferase 30 U/L (15-37); Blood Urea Nitrogen 5 mg/dL (7-18); Calcium 8.5 mg/dL (8.5-10.1); Chloride 103 meq/L (98-107); Glomerular Filtration Rate 46 mL/min (>89); Glucose,Random 90 mg/dL (74-106); Magnesium 1.9 mg/dL (1.5-2.5); Phosphorus 3.4 mg/dL (2.5-4.9); Potassium 3.4 meq/L (3.5-5.1); Sodium 139 meq/L (136-145)
[2018-05-24 08:55] LABS: Alkaline Phosphatase 76 U/L (45-117); Total Protein 6.7 g/dL (6.4-8.2)
[2018-05-24] MEDS: Vancomycin Inj 1,250 MG in Sodium Chlor 0.9% Inj 250 ML IV.SIG SCH (13:21)
--- NOTE | 2018-05-24 14:45 | P.PNIM ---
Subjective Interval history: 32-year-old female with past medical history of depression, hepatitis C and IV drug abuse presents to the emergency department for evaluation of pubic cellulitis. The patient reports approximately 3-4 days ago she noticed a small red bump which she thought was an ingrown hair over the left side of her pubic bone. She reports an increase in pain and redness since that time. She endorses associated fever/chills. Also complains of diarrhea. No abdominal pain. No previous antibiotic use. No nausea/vomiting. No chest pain or shortness of breath. Patient seen and examined. Patient was admitted due to left-sided labial cellulitis/abscess. She continues to have fever as well as significant pain. We consulted infectious disease who in turn also consulted IT SOLUTIONS ARCHITECT for possible I &D. Patient is currently on vancomycin and Zosyn per ID recommendations. 05-19 Follow up for labial abscess/cellulitis. Patient is resting in bed. However, she complains that her redness and swelling are somewhat worse. No fever, chills. Patient underwent bedside I&D by Gang Rider yesterday. 05-20 Follow-up pubic mons abscess and cellulitis May 20, 2018-patient seen and examined, quite lethargic this morning. Complains of worsening erythema. Afebrile 05-21 Follow-up Phlegmon and Cellulitis of Left Labia, suprapubic area, MRSA, status post I and D, in ER was not improving clinically. on Vancomycin and Zosyn, Geology Associate following, and ID specialist. 05/21: Stable in her bedroom in the presence of her significant other in the room also nurse Miss chowdhury present at all times while I was in the room, she has important erythema and edema, or her suprapubic area and extended to the thigh bilateral, continue present antibiotics and packing continue as per Nurse ans her significant other is also helping with her wound care. No nausea, vomit or diarrhea. 05-22 SEEN BY ID RECONSULT GUEST SERVICES LEAD FOR ABSCESS OTHER ABSCESS OPENED AND SELF DRAINED HAS PHLEGMON AND CELLULITIS OF LEFT LABIA, SUPRAPUBIC AREA WITH MRSA SP I AND D AM LABS IV FLUIDS DW RN AND PT AND CM 05-23 SLOW IMPROVEMENT POTASSIUM AND MAGNESIUM ARE OFF WILL REPLACE DW RN AND PT AND CM SEEN BY GUEST SERVICES LEAD CONTINUE ANTIBIOTICS AND FLUIDS AM LABS 05-24 SLOW IMPROVEMENT IN WHITE COUNT CONTINUE ANTIBIOTICS FLUIDS AM LABS STILL WITH SOME EXTRA PUS DRAINING FROM WOUND Physical Exam Vital signs: Vital Signs 05/23/18 16:00 05/23/18 20:00 05/23/18 20:20 Temperature 98.4 F 98.4 F Pulse Rate 69 83 Respiratory Rate 17 20 20 Blood Pressure 156/67 H 147/84 H Pulse Oximetry 98 95 05/24/18 00:00 05/24/18 06:01 05/24/18 08:00 Temperature 98.5 F 98.2 F Pulse Rate 85 74 Respiratory Rate 20 18 18 Blood Pressure 160/103 H 145/98 H Pulse Oximetry 96 94 L 05/24/18 12:00 Temperature 98.6 F Pulse Rate 72 Respiratory Rate 18 Blood Pressure 144/94 H Pulse Oximetry 97 Intake & Output 05/23/18 05/24/18 05/24/18 18:59 06:59 18:59 Intake Total 2212.5 / 2212.5 1480 / 1480 Balance 2212.5 / 2212.5 1480 / 1480 Weight 93.1 kg Intake: IV 1362.5 / 1362.5 1000 / 1000 NS Inj 1,000 ML @ 100 mls/hr IV 1000 / 1000 1000 / 1000 .CONT .Q10H [facility] Rx#:[id number] Magnesium Sulfate Inj 2 GM In 100 / 100 NS Inj 96 ML @ 50 mls/hr IV.SIG ONCE ONE Rx#:[id number] Vancomycin Inj 1,250 MG In NS 262.5 / 262.5 Inj 250 ML @ 250 mls/hr IV.SIG Q24H [facility] Rx#:[id number] Oral 850 / 850 480 / 480 Other: # Voids 6 4 Date of Last Bowel Movement 05/23/18 05/23/18 05/24/18 # Bowel Movements 1 1 Narrative: GENERAL: Alert, NAD. SKIN: Warm and dry. HEAD: Normocephalic. EYES: No scleral icterus. No injection or drainage. NECK: Supple, trachea midline. No JVD or lymphadenopathy. CARDIOVASCULAR: Regular rate and rhythm without murmurs, gallops, or rubs. RESPIRATORY: Breath sounds equal bilaterally. No accessory muscle use. GASTROINTESTINAL: Abdomen soft, non-tender, nondistended. MUSCULOSKELETAL: No cyanosis, or edema. BACK: Nontender without obvious deformity. No CVA tenderness. LESS Erythema and LESS edema on suprapubic area, packing IS OUT- LESS erythema to the upper part of the thigh. Genitourinary: 4 x 4 area of induration and erythema, with central incision draining with minimal drainage packing IN PLACE --EXAMINED WITH A FEMALE RN PRESENT Results - Labs CBC & Chem 7: 05/24/18 08:13 05/24/18 08:13 Laboratory Results - last 24 hr 05/23/18 05/24/18 05/24/18 06:39 08:13 08:13 WBC 14.2 H RBC 4.00 Hgb 11.9 Hct 35.2 MCV 88.0 MCH 29.8 MCHC 33.9 RDW 13.5 Plt Count 326 MPV 8.1 Neut % (Auto) 81.2 H Lymph % (Auto) 9.8 [place] % (Auto) 7.2 Eos % (Auto) 1.6 Baso % (Auto) 0.2 Neut # (Auto) 11.6 H Lymph # (Auto) 1.4 [place] # (Auto) 1.0 H Eos # (Auto) 0.2 Baso # (Auto) 0.0 WBC Differential . Differential Comment Auto diff final Sodium 139 Potassium 3.4 L Chloride 103 Carbon Dioxide 30.0 Anion Gap 6 BUN 5 L Creatinine 1.34 H Estimated GFR 46 L Random Glucose 90 Hemoglobin A1c 5.6 Calcium 8.5 Phosphorus 3.4 Magnesium 1.9 Total Bilirubin 0.4 AST 30 ALT 34 Alkaline Phosphatase 76 Total Protein 6.7 Albumin 2.5 L - Imaging ITS Impressions Abdomen/Pelvis CT 05/17/18 22:52 CONCLUSION: Cellulitis in the region of the vulva but no evidence of abscess. Probable left adrenal adenoma Hypodense liver compatible with fatty infiltration or hepatocellular disease. Soft Tissue Ultrasound 05/20/18 00:00 CONCLUSION: 1. Subcutaneous edema in the labial region without loculated fluid. - Procedures I AND D IN THE ER Assessment and Plan - Plan 32-year-old female with Mons Pubic abscess / Cellulitis - Appreciate ID and Gang Rider input. - Patient is currently ANTIBIOTICS ADJUSTED PER ID ONLY ON VANCO - Percocet for pain, continue wound care. MRSA OF WOUND SENSITIVE TO BACTRIM AND DOXY PER ID RENAL INSUFFICIENCY/DEHYDRATION CONTINUE IV FLUIDS AM LAB HYPOKALEMIA -WILL REPLACE WITH ORAL- REPLACE AGAIN HYPOMAGNESIA WILL REPLACE WITH IV REPLACEMENT Hypertension Anxiety/Depression - Continue HCTZ, Duloxetine H/O IVDU Patient counselled against Code Status: FULL CODE Discussed Condition With: RN AND PT AND CM Discharge Planning: ONCE CLEARED BY ID AND GUEST SERVICES LEAD
[2018-05-25] MEDS: Sod Chloride 0.9% Inj 1,000 ML IV.CONT SCH ×3 (00:10→20:09)
[2018-05-25 07:36] LABS: Baso # (Auto) 0.1 th/mm3 (0.0-0.2); Baso % (Auto) 0.7 % (0.0-2.0); Eos # (Auto) 0.4 th/mm3 (0.0-0.4); Eos % (Auto) 2.3 % (0.0-4.0); Hemoglobin 11.3 gm/dL (11.6-15.3); Lymph # (Auto) 1.8 th/mm3 (1.0-4.8); Lymph % (Auto) 11.9 % (9.0-44.0); Mean Corpuscular HGB Conc 34.2 % (32.0-36.0); Mean Corpuscular Hemoglobin 29.8 pg (27.0-34.0); Mean Corpuscular Volume 87.3 fL (80.0-100.0); Mean Platelet Volume 8.7 fL (7.0-11.0); Mono # (Auto) 1.1 th/mm3 (0.0-0.9); Neut % (Auto) 78.1 % (16.0-70.0); Platelet Count 314 th/mm3 (150-450); Red Blood Count 3.78 mil/mm3 (4.00-5.30); Red Cell Distribution Width 13.7 % (11.6-17.2); White Blood Count 15.4 th/mm3 (4.0-11.0)
[2018-05-25 07:48] LABS: Alanine Aminotransferase 32 U/L (10-53); Albumin 2.4 g/dL (3.4-5.0); Alkaline Phosphatase 80 U/L (45-117); Anion Gap 6 meq/L (5-15); Aspartate Aminotransferase 47 U/L (15-37); Blood Urea Nitrogen 8 mg/dL (7-18); Calcium 8.4 mg/dL (8.5-10.1); Carbon Dioxide 28.8 meq/L (21.0-32.0); Chloride 103 meq/L (98-107); Glomerular Filtration Rate 41 mL/min (>89); Glucose,Random 80 mg/dL (74-106); Magnesium 1.8 mg/dL (1.5-2.5); Phosphorus 3.3 mg/dL (2.5-4.9); Potassium 4.7 meq/L (3.5-5.1); Sodium 138 meq/L (136-145); Total Protein 6.8 g/dL (6.4-8.2)
[2018-05-25] MEDS: hydroCHLOROthiazide 25 MG Tablet PO SCH (08:51)
[2018-05-25] MEDS: Duloxetine 60 MG DR Capsule PO SCH (08:51)
[2018-05-25] MEDS: Senna/Docusate Sodium 8.6/50 MG Tablet PO SCH ×2 (08:52→20:08)
--- NOTE | 2018-05-25 11:00 | P.CONOB ---
History of Present Illness - Data of Consult Requesting Physician: Slick Cabrera DO Primary Care Provider: [facility] - Consult Narrative Narrative: Tosha Jackson is a 32 year old female who has been treated for a mons cellulitis. The cellulitis appeared to be improving on IV antibiotics with Vancomycin and Zosyn. The Zosyn was discontinued on 05/22 and the patient continued on vancomycin alone. I examined the patient on 05/23 late am and at 9:45am. The induration appeared similar on both occasions and the incision from the I&D was open and draining. Notified this morning by Dr. Lita Clark about concern for worsening cellulitis. At this time, the induration palpates similar to yesterday, but it appears there may be more erythema restricted to the mons. Dr. Clark has ordered a CT to further evaluate for an unrecognized or other underlying fluid collection or pocket of exudative material. [facility] 1352 Addendum: CT/report reviewed, no significant drainable fluid collection noted. Discussed patient again with Dr. Clark, discussed antibiotic selection and if any potential benefit of repeat cultures, Dr. Clark indicated no benefit of additional cultures. Discussed that the cellulitis had been improving and now worsened on single antibiotic therapy, Dr. Clark believed this to be coincidental due to MRSA only from culture. Will defer antibiotic selection to Dr. Clark. [facility] - History History Provided By: Patient - Medical History Medical History: Medical History (Last Updated 05/22/18 @ 11:56 by Maddison Black) Depression HTN (hypertension) Hepatitis C MDRO (multiple drug resistant organisms) resistance Onset Date: ~05/20/18 - Surgical History Surgical History: Surgical History (Last Reviewed 05/18/18 @ 14:23 by Marilyn Clark MD) H/O hernia repair History of bilateral breast reduction surgery Hx of section - Family History Family History: Family History (Last Reviewed 05/18/18 @ 14:23 by Marilyn Clark MD) Other Family history normal - Tobacco History Second Hand Smoke Exposure: No Tobacco Use In Past 30 Days: Yes Smoking Status: Current every day smoker Tobacco Type: Cigarettes - Alcohol History How Often Do You Have a Drink Containing Alcohol: 2 to 4 times a month - Substance Use History Substance History: Active Abuse - Substance Use Type Marijuana Status: Active Route Used: By Mouth Frequency: couple times a week Last Used: 05/17/18 Reason for Use: Feels Good Heroin Status: Active Route Used: Intravenously Frequency: 2-3 times a week Last Used: 05/17/18 Reason for Use: Feels Good Crack/Cocaine Status: Active Route Used: Inhalation Frequency: rarely Last Used: 05/17/18 Reason for Use: Feels Good - Travel History Recent Travel in the [place] Within the Last 8 Weeks: No Recent Travel Out of the Country Within the Last 8 Weeks: No - Immunization History Tetanus Immunization: Unsure Hx Influenza Vaccine This Season: No Medications and Allergies Active Medications: Active Medications Acetaminophen (Tylenol) 650 mg PO Q4H PRN PRN Reason: Headache, fever, pain 1-5 Last Admin: 05/19/18 18:06 Dose: 650 mg Al Hydroxide/Mg Hydroxide (Milk Of Magnesia Liq) 30 ml PO Q12H PRN PRN Reason: Mild Constipation Bisacodyl (Dulcolax Supp) 10 mg RECTAL DAILY PRN PRN Reason: SEVERE CONSITIPATION Calcium Carbonate (Tums Chew) 500 mg CHEW Q2H PRN PRN Reason: INDIGESTION Last Admin: 05/25/18 09:48 Dose: 500 mg Duloxetine HCl (Cymbalta) 60 mg PO DAILY [facility] Last Admin: 05/25/18 08:51 Dose: 60 mg Hydrochlorothiazide (Hydrodiuril) 25 mg PO DAILY [facility] Last Admin: 05/25/18 08:51 Dose: 25 mg Sodium Chloride (Ns Inj) 1,000 mls @ 100 mls/hr IV.CONT .Q10H [facility] Last Infusion: 05/25/18 00:55 Dose: 0 mls/hr Vancomycin HCl 1,250 mg/ (Sodium Chloride) 262.5 mls @ 250 mls/hr IV.SIG Q24H [facility] Last Infusion: 05/24/18 14:30 Dose: Infused Lactulose (Lactulose Liq) 30 ml PO DAILY PRN PRN Reason: SEVERE CONSITIPATION Miscellaneous Information ([facility] [place] [facility] Ordered Lab Info) 0 each OTHER ONCE ONE Stop: 05/26/18 10:46 Ondansetron HCl (Zofran Inj) 4 mg IV.PUSH Q6H PRN PRN Reason: NAUSEA OR VOMITING Last Admin: 05/22/18 06:47 Dose: 4 mg Oxycodone/Acetaminophen (Percocet 7.5/325 Mg) 1 tab PO Q4H PRN PRN Reason: pain 6-10 Last Admin: 05/25/18 04:42 Dose: 1 tab Pharmacy Profile Note (Vancomycin Consult Pharmacy) 1 each OTHER UNSCH PRN PRN Reason: Pharmacy to dose Senna/Docusate Sodium (Desiree-Colace) 1 tab PO BID [facility] Last Admin: 05/25/18 08:52 Dose: Not Given Sennosides (Senokot) 17.2 mg PO Q12H PRN PRN Reason: Moderate Constipation Sodium Chloride (Ns Flush) 2 ml IV.FLUSH PRN PRN PRN Reason: FLUSH AFTER USING IV ACCESS Allergies Allergy/AdvReac Type Severity Reaction Status Date / Time No Known Allergies Allergy Verified 05/17/18 21:35 Home Medications Medication Instructions Recorded Confirmed Type duloxetine [Cymbalta] 60 mg PO DAILY 05/17/18 05/17/18 History hydrochlorothiazide 25 mg PO DAILY 05/17/18 05/17/18 History Physical Exam Vital signs: Temp Pulse Resp BP Pulse Ox 98.6 F 86 18 132/81 93 L 05/25/18 08:00 05/25/18 08:00 05/25/18 08:00 05/25/18 08:00 05/25/18 08:00 Results - Labs CBC & Chem 7: 05/25/18 06:56 05/25/18 06:56 Labs: Short CBC 05/25/18 Range/Units 06:56 WBC 15.4 H (4.0-11.0) th/mm3 Hgb 11.3 L (11.6-15.3) gm/dL Hct 33.0 L (35.0-46.0) % Plt Count 314 (150-450) th/mm3 BMP 05/25/18 06:56 Sodium 138 Potassium 4.7 D Chloride 103 Carbon Dioxide 28.8 BUN 8 Creatinine 1.50 H Calcium 8.4 L Liver Function 05/25/18 Range/Units 06:56 Total Bilirubin 0.4 (0.2-1.0) mg/dL AST 47 H (15-37) U/L ALT 32 (10-53) U/L Alkaline Phosphatase 80 (45-117) U/L Albumin 2.4 L (3.4-5.0) g/dL Assessment and Plan - Assessment (1) Cellulitis Code(s): L03.90 - Cellulitis, unspecified Status: Acute Qualifiers: Site of cellulitis: other site Qualified Code(s): L03.818 - Cellulitis of other sites (2) Abscess Code(s): L02.91 - Cutaneous abscess, unspecified Status: Acute
--- NOTE | 2018-05-25 11:43 | CT ---
EXAM DATE: 05/25/2018 11:35 AM EDT AGE/SEX: 32 years / Female INDICATIONS: Abscess CLINICAL DATA: This is the patient's initial encounter. Patient reports that signs and symptoms have been present for 1 day and indicates a pain score of 4/10. MEDICAL/SURGICAL HISTORY: Hepatitis C. Hypertension. . Hernia repair RADIATION DOSE: 13.56 CTDI (mGy) COMPARISON: [facility] [place], CT ABDOMEN & PELVIS W CONTRAST, 05/17/2018. . TECHNIQUE: Multiple contiguous axial images were obtained through the pelvis without contrast. Imag es were obtained using multiple row detector helical technique. . Using automated exposure control an d adjustment of the mA and/or kV according to patient size, radiation dose was kept as low as reasona jack achievable to obtain optimal diagnostic quality images. DICOM format image data is available prachi ctronically for review and comparison. FINDINGS: Bowel/Mesentery: The bowel loops are grossly unremarkable. The sigmoid colon has a normal configura tion. Bladder: Contours are smooth. Retroperitoneum: No evidence of deep pelvic adenopathy. Reproductive Organs: No abnormal masses or calcifications seen. Inguinal: Multiple bilateral inguinal nodes, likely reactive/inflammatory in etiology. Soft tissues: Apparent interval incision in the region of the left elbow with persistent inflammatory stranding but no significant drainable fluid collection. Bony Structures: Unremarkable. CONCLUSION: 1. Vulvar cellulitis with apparent interval I&D or cutaneous fistula. No significant drainable fluid collection. Electronically signed by: Mahesh Guan MD 05/25/2018 11:42 AM EDT
[2018-05-25] MEDS: Vancomycin Inj 1,250 MG in Sodium Chlor 0.9% Inj 250 ML IV.SIG SCH (12:30)
--- NOTE | 2018-05-25 12:54 | P.PNIM ---
Subjective Interval history: 32-year-old female with past medical history of depression, hepatitis C and IV drug abuse presents to the emergency department for evaluation of pubic cellulitis. The patient reports approximately 3-4 days ago she noticed a small red bump which she thought was an ingrown hair over the left side of her pubic bone. She reports an increase in pain and redness since that time. She endorses associated fever/chills. Also complains of diarrhea. No abdominal pain. No previous antibiotic use. No nausea/vomiting. No chest pain or shortness of breath. Patient seen and examined. Patient was admitted due to left-sided labial cellulitis/abscess. She continues to have fever as well as significant pain. We consulted infectious disease who in turn also consulted PSYCHIATRIC LPN for possible I &D. Patient is currently on vancomycin and Zosyn per ID recommendations. 05-19 Follow up for labial abscess/cellulitis. Patient is resting in bed. However, she complains that her redness and swelling are somewhat worse. No fever, chills. Patient underwent bedside I&D by Chip Mucker yesterday. 05-20 Follow-up pubic mons abscess and cellulitis May 20, 2018-patient seen and examined, quite lethargic this morning. Complains of worsening erythema. Afebrile 05-21 Follow-up Phlegmon and Cellulitis of Left Labia, suprapubic area, MRSA, status post I and D, in ER was not improving clinically. on Vancomycin and Zosyn, Medication Administration Professional following, and ID specialist. 05/21: Stable in her bedroom in the presence of her significant other in the room also nurse Miss chowdhury present at all times while I was in the room, she has important erythema and edema, or her suprapubic area and extended to the thigh bilateral, continue present antibiotics and packing continue as per Nurse ans her significant other is also helping with her wound care. No nausea, vomit or diarrhea. 05-22 SEEN BY ID RECONSULT COMMERCIAL LOAN COLLECTION OFFICER FOR ABSCESS OTHER ABSCESS OPENED AND SELF DRAINED HAS PHLEGMON AND CELLULITIS OF LEFT LABIA, SUPRAPUBIC AREA WITH MRSA SP I AND D AM LABS IV FLUIDS DW RN AND PT AND CM 05-23 SLOW IMPROVEMENT POTASSIUM AND MAGNESIUM ARE OFF WILL REPLACE DW RN AND PT AND CM SEEN BY COMMERCIAL LOAN COLLECTION OFFICER CONTINUE ANTIBIOTICS AND FLUIDS AM LABS 05-24 SLOW IMPROVEMENT IN WHITE COUNT CONTINUE ANTIBIOTICS FLUIDS AM LABS STILL WITH SOME EXTRA PUS DRAINING FROM WOUND 05-25 HAD CAT SCAN OF PELVIS -SHOWS NO DRAINABLE ABSCESS CONTINUE ANTIBIOTICS STILL DRAINING DW RN AND PT AND CM AND ID AM LABS Physical Exam Vital signs: Vital Signs 05/24/18 16:00 05/24/18 18:30 05/24/18 20:00 Temperature 98.2 F 98.8 F Pulse Rate 69 63 Respiratory Rate 18 3 L 18 Blood Pressure 159/96 H 167/105 H Pulse Oximetry 98 97 05/25/18 00:00 05/25/18 08:00 05/25/18 11:53 Temperature 97.8 F 98.6 F 97.8 F Pulse Rate 89 86 80 Respiratory Rate 16 18 17 Blood Pressure 141/82 H 132/81 128/78 Pulse Oximetry 93 L 93 L 97 Intake & Output 05/24/18 05/25/18 05/25/18 18:59 06:59 18:59 Intake Total 3262.5 / 3262.5 600 / 600 300 / 300 Balance 3262.5 / 3262.5 600 / 600 300 / 300 Weight 92.7 kg Intake: IV 1262.5 / 1262.5 300 / 300 NS Inj 1,000 ML @ 100 mls/hr IV 1000 / 1000 300 / 300 .CONT .Q10H [facility] Rx#:[id number] Vancomycin Inj 1,250 MG In NS 262.5 / 262.5 Inj 250 ML @ 250 mls/hr IV.SIG Q24H [facility] Rx#:[id number] Oral 2000 / 2000 600 / 600 Other: # Voids 10 3 Date of Last Bowel Movement 05/24/18 05/24/18 05/24/18 # Bowel Movements 1 Narrative: GENERAL: Alert, NAD. SKIN: Warm and dry. HEAD: Normocephalic. EYES: No scleral icterus. No injection or drainage. NECK: Supple, trachea midline. No JVD or lymphadenopathy. CARDIOVASCULAR: Regular rate and rhythm without murmurs, gallops, or rubs. RESPIRATORY: Breath sounds equal bilaterally. No accessory muscle use. GASTROINTESTINAL: Abdomen soft, non-tender, nondistended. MUSCULOSKELETAL: No cyanosis, or edema. BACK: Nontender without obvious deformity. No CVA tenderness. Results - Labs CBC & Chem 7: 05/25/18 06:56 05/25/18 06:56 Laboratory Results - last 24 hr 05/25/18 05/25/18 05/25/18 06:56 06:56 06:56 WBC 15.4 H RBC 3.78 L Hgb 11.3 L Hct 33.0 L MCV 87.3 MCH 29.8 MCHC 34.2 RDW 13.7 Plt Count 314 MPV 8.7 Neut % (Auto) 78.1 H Lymph % (Auto) 11.9 [place] % (Auto) 7.0 Eos % (Auto) 2.3 Baso % (Auto) 0.7 Neut # (Auto) 12.0 H Lymph # (Auto) 1.8 [place] # (Auto) 1.1 H Eos # (Auto) 0.4 Baso # (Auto) 0.1 WBC Differential . Differential Comment Auto diff final Sodium 138 Potassium 4.7 D Chloride 103 Carbon Dioxide 28.8 Anion Gap 6 BUN 8 Creatinine 1.50 H Estimated GFR 41 L Random Glucose 80 Calcium 8.4 L Phosphorus 3.3 Magnesium 1.8 Total Bilirubin 0.4 AST 47 H ALT 32 Alkaline Phosphatase 80 Total Protein 6.8 Albumin 2.4 L Beta HCG, Qual Less than 1.0 - Imaging Impressions Pelvis CT 05/25/18 00:00 CONCLUSION: 1. Vulvar cellulitis with apparent interval I&D or cutaneous fistula. No significant drainable fluid collection. - Procedures I AND D IN THE ER Assessment and Plan - Plan 32-year-old female with Mons Pubic abscess / Cellulitis - Appreciate ID and Chip Mucker input. - Patient is currently ANTIBIOTICS ADJUSTED PER ID ONLY ON VANCO - Percocet for pain, continue wound care. MRSA OF WOUND SENSITIVE TO BACTRIM AND DOXY PER ID LEUKOCYTOSIS RENAL INSUFFICIENCY/DEHYDRATION CONTINUE IV FLUIDS AM LAB HEPATITIS C POSITIVE -OUTPATIENT FOLLOW UP WHEN STOPS IVDU HYPOKALEMIA -WILL REPLACE WITH ORAL- REPLACE AGAIN HYPOMAGNESIA WILL REPLACE WITH IV REPLACEMENT Hypertension Anxiety/Depression - Continue HCTZ, Duloxetine H/O IVDU Patient counselled against Code Status: FULL CODE Discussed Condition With: RN AND PT AND CM AND ID Discharge Planning: ONCE CLEARED BY ID AND COMMERCIAL LOAN COLLECTION OFFICER
--- NOTE | 2018-05-25 15:40 | P.OBGPN ---
NOTE ENTERED FOR DATE 05/24/2018, LATE ENTRY S:32-year-old female with past medical history of depression, hepatitis C and IV drug abuse presents to the emergency department for evaluation of pubic cellulitis. Rash has improved over 50% since admission, incision and drainage, and vancomycin administration. Rash appears the same today as it did yesterday. Patient states she is now able to walk without difficulty. She denies any tenderness over the area. Minimal drainage. No areas of pus. No new lesions. PE: Genitourinary: 4 x 4 area of induration and erythema, with central incision draining with minimal drainage packing removed and replaced with nursing present. Q-tip inserted 2 half centimeter in depth. A/P: This is a mons pubis cellulitis with drained abscess, improving -Continue vancomycin with MRSA coverage, continue twice daily packing changes, continue to keep area sterile, continue to monitor improvement -HOLE PUNCHER STRAP service will continue to monitor as needed - Pt seen and examined with , [employer] Agent Hospitalist
--- NOTE | 2018-05-25 19:45 | P.PNID ---
Subjective Remarks: b" im not getting better" afebrile wbc going up CT done - no drainable collection seen Antibiotics: vanco zosyn Allergies/Adverse Reactions: Allergies No Known Allergies Allergy (Verified 05/17/18 21:35) Objective Vital Signs 05/24/18 20:00 05/25/18 00:00 05/25/18 08:00 Temperature 98.8 F 97.8 F 98.6 F Pulse Rate 63 89 86 Respiratory Rate 18 16 18 Blood Pressure 167/105 H 141/82 H 132/81 Pulse Oximetry 97 93 L 93 L 05/25/18 11:53 05/25/18 15:36 05/25/18 18:45 Temperature 97.8 F 98.3 F Pulse Rate 80 72 69 Respiratory Rate 17 18 Blood Pressure 128/78 187/86 H 116/68 Pulse Oximetry 97 99 Intake & Output 05/25/18 05/25/18 05/26/18 06:59 18:59 06:59 Intake Total 600 / 600 2812.5 / 2812.5 Balance 600 / 600 2812.5 / 2812.5 Weight 92.7 kg Intake: IV 812.5 / 812.5 NS Inj 1,000 ML @ 100 mls/hr IV 550 / 550 .CONT .Q10H [facility] Rx#:[id number] Vancomycin Inj 1,250 MG In NS 262.5 / 262.5 Inj 250 ML @ 250 mls/hr IV.SIG Q24H [facility] Rx#:[id number] Oral 600 / 600 1999 / 1999 Other: # Voids 3 4 Date of Last Bowel Movement 05/24/18 05/24/18 # Bowel Movements 1 1 Lab - Hematology Results 05/24/18 05/25/18 08:13 06:56 WBC 14.2 H 15.4 H RBC 4.00 3.78 L Hgb 11.9 11.3 L Hct 35.2 33.0 L MCV 88.0 87.3 MCH 29.8 29.8 MCHC 33.9 34.2 RDW 13.5 13.7 Plt Count 326 314 MPV 8.1 8.7 Neut % (Auto) 81.2 H 78.1 H Lymph % (Auto) 9.8 11.9 [place] % (Auto) 7.2 7.0 Eos % (Auto) 1.6 2.3 Baso % (Auto) 0.2 0.7 Neut # (Auto) 11.6 H 12.0 H Lymph # (Auto) 1.4 1.8 [place] # (Auto) 1.0 H 1.1 H Eos # (Auto) 0.2 0.4 Baso # (Auto) 0.0 0.1 WBC Differential . . Differential Comment Auto diff final Auto diff final Lab - Chemistry Results 05/23/18 05/24/18 05/25/18 06:39 08:13 06:56 Sodium 139 138 Potassium 3.4 L 4.7 D Chloride 103 103 Carbon Dioxide 30.0 28.8 Anion Gap 6 6 BUN 5 L 8 Creatinine 1.34 H 1.50 H Estimated GFR 46 L 41 L Random Glucose 90 80 Hemoglobin A1c 5.6 Calcium 8.5 8.4 L Phosphorus 3.4 3.3 Magnesium 1.9 1.8 Total Bilirubin 0.4 0.4 AST 30 47 H ALT 34 32 Alkaline Phosphatase 76 80 Total Protein 6.7 6.8 Albumin 2.5 L 2.4 L Beta HCG, Qual 05/25/18 06:56 Sodium Potassium Chloride Carbon Dioxide Anion Gap BUN Creatinine Estimated GFR Random Glucose Hemoglobin A1c Calcium Phosphorus Magnesium Total Bilirubin AST ALT Alkaline Phosphatase Total Protein Albumin Beta HCG, Qual Less than 1.0 Imaging: ITS Impressions Abdomen/Pelvis CT 05/17/18 22:52 CONCLUSION: Cellulitis in the region of the vulva but no evidence of abscess. Probable left adrenal adenoma Hypodense liver compatible with fatty infiltration or hepatocellular disease. Soft Tissue Ultrasound 05/20/18 00:00 CONCLUSION: 1. Subcutaneous edema in the labial region without loculated fluid. Pelvis CT 05/25/18 00:00 CONCLUSION: 1. Vulvar cellulitis with apparent interval I&D or cutaneous fistula. No significant drainable fluid collection. Physical Exam: GENERAL: NAD SKIN: Warm and dry. NO rash EYES: No scleral icterus. RESPIRATORY: No accessory muscle use. Breathing unlaboured GASTROINTESTINAL: Abdomen soft, non-tender, nondistended. : Markedly improved ertythema and induration of L labia, L groin and suprapubic area wound is packed tenderness to papation markedly improved erythema improving MUSCULOSKELETAL: Extremities without clubbing, cyanosis, or edema. NEUROLOGICAL: Awake and alert. Non focal PSYCHIATRIC: Appropriate mood and affect; l. Assessment and Plan - Plan Phlegmone and cellutlitis of L labia, suprapubic area, MRSA sp b/s I+D eralier in ER and @ b/s n clinically improving slowly US negative for fluid collection cont IV vancomycin If cont to improve d/c on oral abx (doxycylyne 100 BID or Bactrim DS 2 bid ) to complete 14 days from the day of I+D Kirit Lora
[2018-05-26] MEDS: Sod Chloride 0.9% Inj 1,000 ML IV.CONT SCH ×2 (04:58→14:08)
[2018-05-26 08:59] LABS: Baso # (Auto) 0.1 th/mm3 (0.0-0.2); Baso % (Auto) 0.6 % (0.0-2.0); Eos # (Auto) 0.3 th/mm3 (0.0-0.4); Eos % (Auto) 2.1 % (0.0-4.0); Hematocrit 33.2 % (35.0-46.0); Hemoglobin 11.5 gm/dL (11.6-15.3); Lymph # (Auto) 2.1 th/mm3 (1.0-4.8); Lymph % (Auto) 13.1 % (9.0-44.0); Mean Corpuscular HGB Conc 34.6 % (32.0-36.0); Mean Corpuscular Hemoglobin 30.2 pg (27.0-34.0); Mean Corpuscular Volume 87.3 fL (80.0-100.0); Mono # (Auto) 1.1 th/mm3 (0.0-0.9); Mono % (Auto) 6.8 % (0.0-8.0); Neut # (Auto) 12.5 th/mm3 (1.8-7.7); Neut % (Auto) 77.4 % (16.0-70.0); Platelet Count 280 th/mm3 (150-450); Red Cell Distribution Width 13.7 % (11.6-17.2); White Blood Count 16.1 th/mm3 (4.0-11.0)
[2018-05-26] MEDS: Duloxetine 60 MG DR Capsule PO SCH (09:33)
[2018-05-26] MEDS: hydroCHLOROthiazide 25 MG Tablet PO SCH (09:34)
[2018-05-26] MEDS: Senna/Docusate Sodium 8.6/50 MG Tablet PO SCH ×2 (09:34→21:30)
[2018-05-26] MEDS ORDERED: Pharmacy Ordered Lab Info OTHER ONE (10:45)
[2018-05-26] MEDS: Vancomycin Inj 1,250 MG in Sodium Chlor 0.9% Inj 250 ML IV.SIG SCH (10:55)
[2018-05-26 11:19] LABS: Baso # (Auto) 0.1 th/mm3 (0.0-0.2); Baso % (Auto) 0.6 % (0.0-2.0); Eos # (Auto) 0.3 th/mm3 (0.0-0.4); Eos % (Auto) 2.4 % (0.0-4.0); Hematocrit 33.7 % (35.0-46.0); Hemoglobin 11.2 gm/dL (11.6-15.3); Lymph # (Auto) 2.5 th/mm3 (1.0-4.8); Lymph % (Auto) 17.4 % (9.0-44.0); Mean Corpuscular HGB Conc 33.2 % (32.0-36.0); Mean Corpuscular Hemoglobin 29.3 pg (27.0-34.0); Mean Corpuscular Volume 88.3 fL (80.0-100.0); Mean Platelet Volume 8.8 fL (7.0-11.0); Mono % (Auto) 7.3 % (0.0-8.0); Neut # (Auto) 10.3 th/mm3 (1.8-7.7); Neut % (Auto) 72.3 % (16.0-70.0); Platelet Count 366 th/mm3 (150-450); Red Blood Count 3.82 mil/mm3 (4.00-5.30); Red Cell Distribution Width 13.6 % (11.6-17.2); White Blood Count 14.2 th/mm3 (4.0-11.0)
[2018-05-26 11:57] LABS: Alanine Aminotransferase 30 U/L (10-53); Albumin 2.5 g/dL (3.4-5.0); Alkaline Phosphatase 80 U/L (45-117); Anion Gap 9 meq/L (5-15); Aspartate Aminotransferase 22 U/L (15-37); Blood Urea Nitrogen 8 mg/dL (7-18); Calcium 8.9 mg/dL (8.5-10.1); Carbon Dioxide 30.3 meq/L (21.0-32.0); Chloride 101 meq/L (98-107); Glomerular Filtration Rate 42 mL/min (>89); Glucose,Random 90 mg/dL (74-106); Magnesium 1.9 mg/dL (1.5-2.5); Phosphorus 3.9 mg/dL (2.5-4.9); Potassium 3.4 meq/L (3.5-5.1); Sodium 140 meq/L (136-145); Total Protein 7.2 g/dL (6.4-8.2)
--- NOTE | 2018-05-26 12:19 | P.OBGPN ---
S:32-year-old female with past medical history of depression, hepatitis C and IV drug abuse presents to the emergency department for evaluation of pubic cellulitis. Rash has improved over 50% since admission, and now appears the same x 3 days per my view, incision and drainage, and vancomycin administration. Rash appears the same today as it did yesterday. Patient states she is now able to walk without difficulty. She denies any tenderness over the area. Minimal drainage. No areas of pus. No new lesions. PE: Genitourinary: 4 x 4 area of induration and erythema, with central incision draining with minimal drainage packing removed and replaced with nursing present. Q-tip inserted 2 half centimeter in depth. A/P: This is a mons pubis cellulitis with drained abscess, improving -Continue vancomycin with MRSA coverage, continue twice daily packing changes, continue to keep area sterile, continue to monitor improvement -DIGITAL IMAGING SPECIALIST service will continue to monitor as needed - Pt seen and examined with , Windows Consultant Hospitalist - has consulted with ID who said to continue current abx, no additional cx, continue current management - CT reviewed
--- NOTE | 2018-05-26 13:20 | P.PNIM ---
Subjective Interval history: 32-year-old female with past medical history of depression, hepatitis C and IV drug abuse presents to the emergency department for evaluation of pubic cellulitis. The patient reports approximately 3-4 days ago she noticed a small red bump which she thought was an ingrown hair over the left side of her pubic bone. She reports an increase in pain and redness since that time. She endorses associated fever/chills. Also complains of diarrhea. No abdominal pain. No previous antibiotic use. No nausea/vomiting. No chest pain or shortness of breath. Patient seen and examined. Patient was admitted due to left-sided labial cellulitis/abscess. She continues to have fever as well as significant pain. We consulted infectious disease who in turn also consulted MEMBER OF CONGRESS for possible I &D. Patient is currently on vancomycin and Zosyn per ID recommendations. 05-19 Follow up for labial abscess/cellulitis. Patient is resting in bed. However, she complains that her redness and swelling are somewhat worse. No fever, chills. Patient underwent bedside I&D by Channel Worker yesterday. 05-20 Follow-up pubic mons abscess and cellulitis May 20, 2018-patient seen and examined, quite lethargic this morning. Complains of worsening erythema. Afebrile 05-21 Follow-up Phlegmon and Cellulitis of Left Labia, suprapubic area, MRSA, status post I and D, in ER was not improving clinically. on Vancomycin and Zosyn, [employer] following, and ID specialist. 05/21: Stable in her bedroom in the presence of her significant other in the room also nurse Miss chowdhury present at all times while I was in the room, she has important erythema and edema, or her suprapubic area and extended to the thigh bilateral, continue present antibiotics and packing continue as per Nurse ans her significant other is also helping with her wound care. No nausea, vomit or diarrhea. 05-22 SEEN BY ID RECONSULT TRAM OPERATOR FOR ABSCESS OTHER ABSCESS OPENED AND SELF DRAINED HAS PHLEGMON AND CELLULITIS OF LEFT LABIA, SUPRAPUBIC AREA WITH MRSA SP I AND D AM LABS IV FLUIDS DW RN AND PT AND CM 05-23 SLOW IMPROVEMENT POTASSIUM AND MAGNESIUM ARE OFF WILL REPLACE DW RN AND PT AND CM SEEN BY TRAM OPERATOR CONTINUE ANTIBIOTICS AND FLUIDS AM LABS 05-24 SLOW IMPROVEMENT IN WHITE COUNT CONTINUE ANTIBIOTICS FLUIDS AM LABS STILL WITH SOME EXTRA PUS DRAINING FROM WOUND 05-25 HAD CAT SCAN OF PELVIS -SHOWS NO DRAINABLE ABSCESS CONTINUE ANTIBIOTICS STILL DRAINING DW RN AND PT AND CM AND ID AM LABS 05-26 STILL ON VANCOMYCIN AM LABS CONTINUE PACKING DW RN AND PT AND CM AND ID Physical Exam Vital signs: Vital Signs 05/25/18 15:36 05/25/18 18:45 05/25/18 20:00 Temperature 98.3 F 98.1 F Pulse Rate 72 69 60 Respiratory Rate 18 16 Blood Pressure 187/86 H 116/68 144/69 H Pulse Oximetry 99 100 05/26/18 00:00 05/26/18 04:00 05/26/18 08:00 Temperature 98.1 F 99.8 F H 98.6 F Pulse Rate 72 80 66 Respiratory Rate 18 18 18 Blood Pressure 144/94 H 179/81 H 130/80 Pulse Oximetry 97 98 95 05/26/18 12:00 Temperature 97.9 F Pulse Rate 81 Respiratory Rate 18 Blood Pressure 135/63 Pulse Oximetry 99 Intake & Output 05/25/18 05/26/18 05/26/18 18:59 06:59 18:59 Intake Total 2812.5 / 2812.5 1999 1250 / 1250 Balance 2812.5 / 2812.5 1999 1250 / 1250 Weight 92.2 kg Intake: IV 812.5 / 812.5 1999 1250 / 1250 NS Inj 1,000 ML @ 100 mls/hr IV 550 / 550 1999 1000 / 1000 .CONT .Q10H [facility] Rx#:[id number] Vancomycin Inj 1,250 MG In NS 262.5 / 262.5 250 / 250 Inj 250 ML @ 250 mls/hr IV.SIG Q24H [facility] Rx#:[id number] Oral 1999 Other: # Voids 4 7 Date of Last Bowel Movement 05/24/18 05/24/18 05/26/18 # Bowel Movements 1 3 Narrative: GENERAL: Alert, NAD. SKIN: Warm and dry. HEAD: Normocephalic. EYES: No scleral icterus. No injection or drainage. NECK: Supple, trachea midline. No JVD or lymphadenopathy. CARDIOVASCULAR: Regular rate and rhythm without murmurs, gallops, or rubs. RESPIRATORY: Breath sounds equal bilaterally. No accessory muscle use. GASTROINTESTINAL: Abdomen soft, non-tender, nondistended. MUSCULOSKELETAL: No cyanosis, or edema. BACK: Nontender without obvious deformity. No CVA tenderness. 4 x 4 area of induration and erythema, with central incision draining with minimal drainage- PACKING IN PLACE SEEN WITH FEMALE LIVESTOCK HAULIER FOR PELVIC AREA EXAM Results - Labs CBC & Chem 7: 05/26/18 10:29 05/26/18 10:29 Laboratory Results - last 24 hr 05/26/18 05/26/18 05/26/18 06:14 06:14 10:29 WBC 16.1 H RBC 3.80 L Hgb 11.5 L Hct 33.2 L MCV 87.3 MCH 30.2 MCHC 34.6 RDW 13.7 Plt Count 280 MPV 9.0 Prelim Diff (Auto) Slide review pending Neut % (Auto) 77.4 H Lymph % (Auto) 13.1 [place] % (Auto) 6.8 Eos % (Auto) 2.1 Baso % (Auto) 0.6 Neut # (Auto) 12.5 H Lymph # (Auto) 2.1 [place] # (Auto) 1.1 H Eos # (Auto) 0.3 Baso # (Auto) 0.1 WBC Differential . Diff Scan Auto diff confirmed Differential Comment . Sodium 140 Potassium 3.4 L D Chloride 101 Carbon Dioxide 30.3 Anion Gap 9 BUN 8 Creatinine 1.31 H 1.47 H Estimated GFR 48 L 42 L Random Glucose 90 Calcium 8.9 Phosphorus 3.9 Magnesium 1.9 Total Bilirubin 0.3 AST 22 ALT 30 Alkaline Phosphatase 80 Total Protein 7.2 Albumin 2.5 L Vancomycin Trough 13.0 H 05/26/18 10:29 WBC 14.2 H RBC 3.82 L Hgb 11.2 L Hct 33.7 L MCV 88.3 MCH 29.3 MCHC 33.2 RDW 13.6 Plt Count 366 D MPV 8.8 Prelim Diff (Auto) Neut % (Auto) 72.3 H Lymph % (Auto) 17.4 [place] % (Auto) 7.3 Eos % (Auto) 2.4 Baso % (Auto) 0.6 Neut # (Auto) 10.3 H Lymph # (Auto) 2.5 [place] # (Auto) 1.0 H Eos # (Auto) 0.3 Baso # (Auto) 0.1 WBC Differential . Diff Scan Differential Comment Auto diff final Sodium Potassium Chloride Carbon Dioxide Anion Gap BUN Creatinine Estimated GFR Random Glucose Calcium Phosphorus Magnesium Total Bilirubin AST ALT Alkaline Phosphatase Total Protein Albumin Vancomycin Trough - Imaging ITS Impressions Abdomen/Pelvis CT 05/17/18 22:52 CONCLUSION: Cellulitis in the region of the vulva but no evidence of abscess. Probable left adrenal adenoma Hypodense liver compatible with fatty infiltration or hepatocellular disease. Soft Tissue Ultrasound 05/20/18 00:00 CONCLUSION: 1. Subcutaneous edema in the labial region without loculated fluid. Pelvis CT 05/25/18 00:00 CONCLUSION: 1. Vulvar cellulitis with apparent interval I&D or cutaneous fistula. No significant drainable fluid collection. - Procedures I AND D IN THE ER Assessment and Plan - Plan 32-year-old female with Mons Pubic abscess / Cellulitis - Appreciate ID and Channel Worker input. - Patient is currently ANTIBIOTICS ADJUSTED PER ID ONLY ON VANCO - Percocet for pain, continue wound care. MRSA OF WOUND SENSITIVE TO BACTRIM AND DOXY PER ID LEUKOCYTOSIS RENAL INSUFFICIENCY/DEHYDRATION CONTINUE IV FLUIDS AM LAB HEPATITIS C POSITIVE -OUTPATIENT FOLLOW UP WHEN STOPS IVDU HYPOKALEMIA -WILL REPLACE WITH ORAL- REPLACE AGAIN- REPLACE AGAIN HYPOMAGNESIA WILL REPLACE WITH IV REPLACEMENT Hypertension Anxiety/Depression - Continue HCTZ, Duloxetine H/O IVDU Patient counselled against Code Status: FULL CODE Discussed Condition With: RN AND PT AND CM AND ID Discharge Planning: ONCE CLEARED BY ID AND TRAM OPERATOR
--- NOTE | 2018-05-26 13:53 | P.PNID ---
Subjective Remarks: getting better iza improving afebrile wbc down to 14 K Antibiotics: vanco Allergies/Adverse Reactions: Allergies No Known Allergies Allergy (Verified 05/17/18 21:35) Objective Vital Signs 05/25/18 15:36 05/25/18 18:45 05/25/18 20:00 Temperature 98.3 F 98.1 F Pulse Rate 72 69 60 Respiratory Rate 18 16 Blood Pressure 187/86 H 116/68 144/69 H Pulse Oximetry 99 100 05/26/18 00:00 05/26/18 04:00 05/26/18 08:00 Temperature 98.1 F 99.8 F H 98.6 F Pulse Rate 72 80 66 Respiratory Rate 18 18 18 Blood Pressure 144/94 H 179/81 H 130/80 Pulse Oximetry 97 98 95 05/26/18 12:00 Temperature 97.9 F Pulse Rate 81 Respiratory Rate 18 Blood Pressure 135/63 Pulse Oximetry 99 Intake & Output 05/25/18 05/26/18 05/26/18 18:59 06:59 18:59 Intake Total 2812.5 / 2812.5 1999 1250 / 1250 Balance 2812.5 / 2812.5 1999 1250 / 1250 Weight 92.2 kg Intake: IV 812.5 / 812.5 1999 1250 / 1250 NS Inj 1,000 ML @ 100 mls/hr IV 550 / 550 1999 1000 / 1000 .CONT .Q10H [facility] Rx#:[id number] Vancomycin Inj 1,250 MG In NS 262.5 / 262.5 250 / 250 Inj 250 ML @ 250 mls/hr IV.SIG Q24H [facility] Rx#:[id number] Oral 1999 Other: # Voids 4 7 Date of Last Bowel Movement 05/24/18 05/24/18 05/26/18 # Bowel Movements 1 3 Lab - Hematology Results 05/25/18 05/26/18 05/26/18 06:56 06:14 10:29 WBC 15.4 H 16.1 H 14.2 H RBC 3.78 L 3.80 L 3.82 L Hgb 11.3 L 11.5 L 11.2 L Hct 33.0 L 33.2 L 33.7 L MCV 87.3 87.3 88.3 MCH 29.8 30.2 29.3 MCHC 34.2 34.6 33.2 RDW 13.7 13.7 13.6 Plt Count 314 280 366 D MPV 8.7 9.0 8.8 Prelim Diff (Auto) Slide review pending Neut % (Auto) 78.1 H 77.4 H 72.3 H Lymph % (Auto) 11.9 13.1 17.4 [place] % (Auto) 7.0 6.8 7.3 Eos % (Auto) 2.3 2.1 2.4 Baso % (Auto) 0.7 0.6 0.6 Neut # (Auto) 12.0 H 12.5 H 10.3 H Lymph # (Auto) 1.8 2.1 2.5 [place] # (Auto) 1.1 H 1.1 H 1.0 H Eos # (Auto) 0.4 0.3 0.3 Baso # (Auto) 0.1 0.1 0.1 WBC Differential . . . Diff Scan Auto diff confirmed Differential Comment Auto diff final . Auto diff final Lab - Chemistry Results 05/25/18 05/25/18 05/26/18 06:56 06:56 06:14 Sodium 138 Potassium 4.7 D Chloride 103 Carbon Dioxide 28.8 Anion Gap 6 BUN 8 Creatinine 1.50 H 1.31 H Estimated GFR 41 L 48 L Random Glucose 80 Calcium 8.4 L Phosphorus 3.3 Magnesium 1.8 Total Bilirubin 0.4 AST 47 H ALT 32 Alkaline Phosphatase 80 Total Protein 6.8 Albumin 2.4 L Beta HCG, Qual Less than 1.0 05/26/18 10:29 Sodium 140 Potassium 3.4 L D Chloride 101 Carbon Dioxide 30.3 Anion Gap 9 BUN 8 Creatinine 1.47 H Estimated GFR 42 L Random Glucose 90 Calcium 8.9 Phosphorus 3.9 Magnesium 1.9 Total Bilirubin 0.3 AST 22 ALT 30 Alkaline Phosphatase 80 Total Protein 7.2 Albumin 2.5 L Beta HCG, Qual Imaging: ITS Impressions Abdomen/Pelvis CT 05/17/18 22:52 CONCLUSION: Cellulitis in the region of the vulva but no evidence of abscess. Probable left adrenal adenoma Hypodense liver compatible with fatty infiltration or hepatocellular disease. Soft Tissue Ultrasound 05/20/18 00:00 CONCLUSION: 1. Subcutaneous edema in the labial region without loculated fluid. Pelvis CT 05/25/18 00:00 CONCLUSION: 1. Vulvar cellulitis with apparent interval I&D or cutaneous fistula. No significant drainable fluid collection. Physical Exam: GENERAL: NAD SKIN: Warm and dry. NO rash EYES: No scleral icterus. RESPIRATORY: No accessory muscle use. Breathing unlaboured GASTROINTESTINAL: Abdomen soft, non-tender, nondistended. : ertythema cont to fade and induration of L labia, L groin and suprapubic area getting softer wound is packed, no drainage tenderness to palpation markedly improved erythema improving MUSCULOSKELETAL: Extremities without clubbing, cyanosis, or edema. NEUROLOGICAL: Awake and alert. Non focal PSYCHIATRIC: Appropriate mood and affect; l. Assessment and Plan - Plan Phlegmone and cellutlitis of L labia, suprapubic area, MRSA sp b/s I+D eralier in ER and @ b/s n clinically improving slowly US negative for fluid collection cont IV vancomycin for 1-2 more days If cont ot improve OK to dc over we and switch to oral abx (doxycylyne 100 BID or Bactrim DS 2 bid ) to complete 14 days from the day of I+D jayshree Valladares
[2018-05-27] MEDS: Sod Chloride 0.9% Inj 1,000 ML IV.CONT SCH ×3 (00:25→21:50)
[2018-05-27] MEDS: Acetaminophen 325 MG Tablet PO PRN ×2 (01:43→09:10)
[2018-05-27 06:19] LABS: Baso % (Auto) 0.4 % (0.0-2.0); Eos % (Auto) 3.3 % (0.0-4.0); Hematocrit 36.1 % (35.0-46.0); Hemoglobin 11.7 gm/dL (11.6-15.3); Lymph # (Auto) 2.1 th/mm3 (1.0-4.8); Lymph % (Auto) 17.9 % (9.0-44.0); Mean Corpuscular HGB Conc 32.4 % (32.0-36.0); Mean Corpuscular Hemoglobin 28.8 pg (27.0-34.0); Mean Corpuscular Volume 88.9 fL (80.0-100.0); Mean Platelet Volume 8.2 fL (7.0-11.0); Mono % (Auto) 7.5 % (0.0-8.0); Neut # (Auto) 8.4 th/mm3 (1.8-7.7); Neut % (Auto) 70.9 % (16.0-70.0); Platelet Count 365 th/mm3 (150-450); Red Blood Count 4.06 mil/mm3 (4.00-5.30); Red Cell Distribution Width 13.4 % (11.6-17.2); White Blood Count 11.9 th/mm3 (4.0-11.0)
[2018-05-27 06:20] LABS: Eos # (Auto) 0.4 th/mm3 (0.0-0.4); Mono # (Auto) 0.9 th/mm3 (0.0-0.9)
[2018-05-27 06:45] LABS: Albumin 2.6 g/dL (3.4-5.0); Anion Gap 6 meq/L (5-15); Aspartate Aminotransferase 23 U/L (15-37); Blood Urea Nitrogen 9 mg/dL (7-18); Calcium 8.6 mg/dL (8.5-10.1); Carbon Dioxide 30.1 meq/L (21.0-32.0); Chloride 103 meq/L (98-107); Glomerular Filtration Rate 46 mL/min (>89); Glucose,Random 81 mg/dL (74-106); Magnesium 1.8 mg/dL (1.5-2.5); Potassium 3.3 meq/L (3.5-5.1); Sodium 139 meq/L (136-145)
[2018-05-27 06:50] LABS: Alanine Aminotransferase 28 U/L (10-53); Alkaline Phosphatase 67 U/L (45-117); Phosphorus 3.2 mg/dL (2.5-4.9); Total Protein 6.8 g/dL (6.4-8.2)
[2018-05-27] MEDS: hydroCHLOROthiazide 25 MG Tablet PO SCH (09:11)
[2018-05-27] MEDS: Duloxetine 60 MG DR Capsule PO SCH (09:11)
[2018-05-27] MEDS: Senna/Docusate Sodium 8.6/50 MG Tablet PO SCH ×2 (09:12→20:00)
[2018-05-27] MEDS ORDERED: Magnesium Sulfate Inj 2 GM in Sodium Chlor 0.9% Inj 96 ML IV.SIG ONE (10:00)
--- NOTE | 2018-05-27 10:07 | P.CONOB ---
History of Present Illness Service: OB Hospitalist Primary Care Physician: Luci Benjamin Chief Complaint: Severe pain in the suprapubic region with increasing redness swelling and i History of Present Illness: Ms Jackson is a 32-year-old female with past medical history of depression, hepatitis C and IV drug abuse presents to the emergency department for evaluation of pubic cellulitis. Rash has improved over 50% since admission, incision and drainage, and vancomycin administration. Patient states she is now able to walk without difficulty. She denies any tenderness over the area. Minimal drainage. No areas of pus. No new lesions. 05/27: Pt is clinically improving with no acute events overnight. Pt still has an area of induration but cellulitis is resolving. There appears to be no fluid/ purulent drainage. Pt still has pain. Reports of CP last night. PMFSH - History History Provided By: Patient - Medical History Medical History: Medical History (Last Updated 05/22/18 @ 11:56 by Maddison Black) Depression HTN (hypertension) Hepatitis C MDRO (multiple drug resistant organisms) resistance Onset Date: ~05/20/18 - Surgical History Surgical History: Surgical History (Last Reviewed 05/18/18 @ 14:23 by Marilyn Clark MD) H/O hernia repair History of bilateral breast reduction surgery Hx of section - Family History Family History: Family History (Last Reviewed 05/18/18 @ 14:23 by Marilyn Clark MD) Other Family history normal - Tobacco History Second Hand Smoke Exposure: No Tobacco Use In Past 30 Days: Yes Smoking Status: Current every day smoker Tobacco Type: Cigarettes - Alcohol History How Often Do You Have a Drink Containing Alcohol: 2 to 4 times a month - Substance Use History Substance History: Active Abuse - Substance Use Type Marijuana Status: Active Route Used: By Mouth Frequency: couple times a week Last Used: 05/17/18 Reason for Use: Feels Good Heroin Status: Active Route Used: Intravenously Frequency: 2-3 times a week Last Used: 05/17/18 Reason for Use: Feels Good Crack/Cocaine Status: Active Route Used: Inhalation Frequency: rarely Last Used: 05/17/18 Reason for Use: Feels Good - Travel History Recent Travel in the [place] Within the Last 8 Weeks: No Recent Travel Out of the Country Within the Last 8 Weeks: No - Immunization History Tetanus Immunization: Unsure Hx Influenza Vaccine This Season: No Medications and Allergies Active Medications: Active Medications Acetaminophen (Tylenol) 650 mg PO Q4H PRN PRN Reason: Headache, fever, pain 1-5 Last Admin: 05/27/18 09:10 Dose: 650 mg Al Hydroxide/Mg Hydroxide (Milk Of Magnesia Liq) 30 ml PO Q12H PRN PRN Reason: Mild Constipation Bisacodyl (Dulcolax Supp) 10 mg RECTAL DAILY PRN PRN Reason: SEVERE CONSITIPATION Calcium Carbonate (Tums Chew) 500 mg CHEW Q2H PRN PRN Reason: INDIGESTION Last Admin: 05/25/18 09:48 Dose: 500 mg Duloxetine HCl (Cymbalta) 60 mg PO DAILY [facility] Last Admin: 05/27/18 09:11 Dose: 60 mg Hydrochlorothiazide (Hydrodiuril) 25 mg PO DAILY [facility] Last Admin: 05/27/18 09:11 Dose: 25 mg Sodium Chloride (Ns Inj) 1,000 mls @ 100 mls/hr IV.CONT .Q10H [facility] Last Admin: 05/27/18 00:25 Dose: Not Given Vancomycin HCl 1,250 mg/ (Sodium Chloride) 262.5 mls @ 250 mls/hr IV.SIG Q24H [facility] Last Infusion: 05/26/18 12:18 Dose: Infused Magnesium Sulfate 2 gm/ Sodium (Chloride) 100 mls @ 50 mls/hr IV.SIG ONCE ONE Stop: 05/27/18 11:59 Lactulose (Lactulose Liq) 30 ml PO DAILY PRN PRN Reason: SEVERE CONSITIPATION Ondansetron HCl (Zofran Inj) 4 mg IV.PUSH Q6H PRN PRN Reason: NAUSEA OR VOMITING Last Admin: 05/22/18 06:47 Dose: 4 mg Oxycodone/Acetaminophen (Percocet 7.5/325 Mg) 1 tab PO Q4H PRN PRN Reason: pain 6-10 Last Admin: 05/27/18 05:44 Dose: 1 tab Pharmacy Profile Note (Vancomycin Consult Pharmacy) 1 each OTHER UNSCH PRN PRN Reason: Pharmacy to dose Potassium Chloride (K-Dur) 60 meq PO ONCE ONE Stop: 05/27/18 10:01 Senna/Docusate Sodium (Desiree-Colace) 1 tab PO BID [facility] Last Admin: 05/27/18 09:12 Dose: Not Given Sennosides (Senokot) 17.2 mg PO Q12H PRN PRN Reason: Moderate Constipation Sodium Chloride (Ns Flush) 2 ml IV.FLUSH PRN PRN PRN Reason: FLUSH AFTER USING IV ACCESS Allergies Allergy/AdvReac Type Severity Reaction Status Date / Time No Known Allergies Allergy Verified 05/17/18 21:35 Home Medications Medication Instructions Recorded Confirmed Type duloxetine [Cymbalta] 60 mg PO DAILY 05/17/18 05/17/18 History hydrochlorothiazide 25 mg PO DAILY 05/17/18 05/17/18 History Exam Vital signs: Vital Signs 05/26/18 12:00 05/26/18 16:00 05/26/18 20:00 Temperature 97.9 F 98.1 F 98.7 F Pulse Rate 81 75 67 Respiratory Rate 18 20 20 Blood Pressure 135/63 164/98 H 162/104 H Pulse Oximetry 99 97 99 05/27/18 00:00 05/27/18 01:29 05/27/18 08:00 Temperature 98.5 F 98.1 F Pulse Rate 113 H 94 H 70 Respiratory Rate 16 18 Blood Pressure 151/67 H 169/104 H Pulse Oximetry 93 L 98 Intake & Output 05/26/18 05/27/18 05/27/18 18:59 06:59 18:59 Intake Total 1614 / 1614 1236 / 1236 Balance 1614 / 1614 1236 / 1236 Weight 92.2 kg Intake: IV 1614 / 1614 636 / 636 NS Inj 1,000 ML @ 100 mls/hr IV 1364 / 1364 636 / 636 .CONT .Q10H [facility] Rx#:[id number] Vancomycin Inj 1,250 MG In NS 250 / 250 Inj 250 ML @ 250 mls/hr IV.SIG Q24H [facility] Rx#:[id number] Oral 600 / 600 Other: # Voids 10 Date of Last Bowel Movement 05/26/18 05/26/18 # Bowel Movements 1 Narrative: GENERAL: Well developed, well nourished female in NAD. SKIN: Warm and dry. Area over the pelvis with marking shows no signs of cellulitis; however, there is still a well-circumscribed round area superior to and to the left of the midline labia with 4cm x 4cm of induration with packing extruded from the incision with no s/s of drainage; area is c/d/i. There was no fluid or pus expressed during the exam. Pt is still TTP in that area. HEAD: Normocephalic. EYES: No scleral icterus. No injection or drainage. NECK: Supple, trachea midline. No JVD or lymphadenopathy. CARDIOVASCULAR: Regular rate and rhythm without murmurs, gallops, or rubs. RESPIRATORY: Breath sounds equal bilaterally. No accessory muscle use. GASTROINTESTINAL: Abdomen soft, non-tender, nondistended. MUSCULOSKELETAL: No cyanosis, or edema. Results - Labs CBC & Chem 7: 05/27/18 05:34 05/27/18 05:34 Labs: Laboratory Results - last 24 hr 05/26/18 05/26/18 05/27/18 10:29 10:29 05:34 WBC 14.2 H 11.9 H RBC 3.82 L 4.06 Hgb 11.2 L 11.7 Hct 33.7 L 36.1 MCV 88.3 88.9 MCH 29.3 28.8 MCHC 33.2 32.4 RDW 13.6 13.4 Plt Count 366 D 365 MPV 8.8 8.2 Neut % (Auto) 72.3 H 70.9 H Lymph % (Auto) 17.4 17.9 [place] % (Auto) 7.3 7.5 Eos % (Auto) 2.4 3.3 Baso % (Auto) 0.6 0.4 Neut # (Auto) 10.3 H 8.4 H Lymph # (Auto) 2.5 2.1 [place] # (Auto) 1.0 H 0.9 Eos # (Auto) 0.3 0.4 Baso # (Auto) 0.1 0.0 WBC Differential . . Differential Comment Auto diff final Auto diff final Sodium 140 Potassium 3.4 L D Chloride 101 Carbon Dioxide 30.3 Anion Gap 9 BUN 8 Creatinine 1.47 H Estimated GFR 42 L Random Glucose 90 Calcium 8.9 Phosphorus 3.9 Magnesium 1.9 Total Bilirubin 0.3 AST 22 ALT 30 Alkaline Phosphatase 80 Total Protein 7.2 Albumin 2.5 L Vancomycin Trough 13.0 H 05/27/18 05:34 WBC RBC Hgb Hct MCV MCH MCHC RDW Plt Count MPV Neut % (Auto) Lymph % (Auto) [place] % (Auto) Eos % (Auto) Baso % (Auto) Neut # (Auto) Lymph # (Auto) [place] # (Auto) Eos # (Auto) Baso # (Auto) WBC Differential Differential Comment Sodium 139 Potassium 3.3 L Chloride 103 Carbon Dioxide 30.1 Anion Gap 6 BUN 9 Creatinine 1.36 H Estimated GFR 46 L Random Glucose 81 Calcium 8.6 Phosphorus 3.2 Magnesium 1.8 Total Bilirubin 0.3 AST 23 ALT 28 Alkaline Phosphatase 67 Total Protein 6.8 Albumin 2.6 L Vancomycin Trough Assessment and Plan - Plan Ms Jackson is a 32 YO female with mons pubis cellulitis 1. Mons pubis cellulitis with drained abscess; cellulitis is resolving and still a 4cm x 4cm indurated area around the central packing without purulent drainage. -Continue abx per ID -Pain control per primary team -Twice daily packing changes -Keep area sterile -DICTATING MACHINE TYPIST service will sign off today but can see pt again if condition worsens Pt SDW DR Jackson
[2018-05-27] MEDS: Vancomycin Inj 1,250 MG in Sodium Chlor 0.9% Inj 250 ML IV.SIG SCH (11:46)
--- NOTE | 2018-05-27 12:08 | P.PNIM ---
Subjective Interval history: 32-year-old female with past medical history of depression, hepatitis C and IV drug abuse presents to the emergency department for evaluation of pubic cellulitis. The patient reports approximately 3-4 days ago she noticed a small red bump which she thought was an ingrown hair over the left side of her pubic bone. She reports an increase in pain and redness since that time. She endorses associated fever/chills. Also complains of diarrhea. No abdominal pain. No previous antibiotic use. No nausea/vomiting. No chest pain or shortness of breath. Patient seen and examined. Patient was admitted due to left-sided labial cellulitis/abscess. She continues to have fever as well as significant pain. We consulted infectious disease who in turn also consulted RAW SAMPLER for possible I &D. Patient is currently on vancomycin and Zosyn per ID recommendations. 05-19 Follow up for labial abscess/cellulitis. Patient is resting in bed. However, she complains that her redness and swelling are somewhat worse. No fever, chills. Patient underwent bedside I&D by Executive Director Of Nursing yesterday. 05-20 Follow-up pubic mons abscess and cellulitis May 20, 2018-patient seen and examined, quite lethargic this morning. Complains of worsening erythema. Afebrile 05-21 Follow-up Phlegmon and Cellulitis of Left Labia, suprapubic area, MRSA, status post I and D, in ER was not improving clinically. on Vancomycin and Zosyn, Academic Services Professional following, and ID specialist. 05/21: Stable in her bedroom in the presence of her significant other in the room also nurse Miss chowdhury present at all times while I was in the room, she has important erythema and edema, or her suprapubic area and extended to the thigh bilateral, continue present antibiotics and packing continue as per Nurse ans her significant other is also helping with her wound care. No nausea, vomit or diarrhea. 05-22 SEEN BY ID RECONSULT SALICYLIC ACID BLENDER FOR ABSCESS OTHER ABSCESS OPENED AND SELF DRAINED HAS PHLEGMON AND CELLULITIS OF LEFT LABIA, SUPRAPUBIC AREA WITH MRSA SP I AND D AM LABS IV FLUIDS DW RN AND PT AND CM 05-23 SLOW IMPROVEMENT POTASSIUM AND MAGNESIUM ARE OFF WILL REPLACE DW RN AND PT AND CM SEEN BY SALICYLIC ACID BLENDER CONTINUE ANTIBIOTICS AND FLUIDS AM LABS 05-24 SLOW IMPROVEMENT IN WHITE COUNT CONTINUE ANTIBIOTICS FLUIDS AM LABS STILL WITH SOME EXTRA PUS DRAINING FROM WOUND 05-25 HAD CAT SCAN OF PELVIS -SHOWS NO DRAINABLE ABSCESS CONTINUE ANTIBIOTICS STILL DRAINING DW RN AND PT AND CM AND ID AM LABS 05-26 STILL ON VANCOMYCIN AM LABS CONTINUE PACKING DW RN AND PT AND CM AND ID 05-27 TEACH HOW TO PACK WOUND DC TO HOME TOMORROW AM LABS CONTINUE PACKING SEEN BY ID AND SALICYLIC ACID BLENDER HOPEFULLY HOME TOMORROW Physical Exam Vital signs: Vital Signs 05/26/18 16:00 05/26/18 20:00 05/27/18 00:00 Temperature 98.1 F 98.7 F 98.5 F Pulse Rate 75 67 113 H Respiratory Rate 20 20 16 Blood Pressure 164/98 H 162/104 H 151/67 H Pulse Oximetry 97 99 93 L 05/27/18 01:29 05/27/18 08:00 Temperature 98.1 F Pulse Rate 94 H 70 Respiratory Rate 18 Blood Pressure 169/104 H Pulse Oximetry 98 Intake & Output 05/26/18 05/27/18 05/27/18 18:59 06:59 18:59 Intake Total 1614 / 1614 1236 / 1236 Balance 1614 / 1614 1236 / 1236 Weight 92.2 kg Intake: IV 1614 / 1614 636 / 636 NS Inj 1,000 ML @ 100 mls/hr IV 1364 / 1364 636 / 636 .CONT .Q10H [facility] Rx#:[id number] Vancomycin Inj 1,250 MG In NS 250 / 250 Inj 250 ML @ 250 mls/hr IV.SIG Q24H [facility] Rx#:[id number] Oral 600 / 600 Other: # Voids 10 Date of Last Bowel Movement 05/26/18 05/26/18 # Bowel Movements 1 Narrative: GENERAL: Well developed, well nourished female in NAD. SKIN: Warm and dry. Area over the pelvis with marking shows no signs of cellulitis; however, there is still a well-circumscribed round area superior to and to the left of the midline labia with 4cm x 4cm of induration with packing extruded from the incision with no s/s of drainage; area is c/d/i. There was no fluid or pus expressed during the exam. Pt is still TTP in that area. HEAD: Normocephalic. EYES: No scleral icterus. No injection or drainage. NECK: Supple, trachea midline. No JVD or lymphadenopathy. CARDIOVASCULAR: Regular rate and rhythm without murmurs, gallops, or rubs. RESPIRATORY: Breath sounds equal bilaterally. No accessory muscle use. GASTROINTESTINAL: Abdomen soft, non-tender, nondistended. MUSCULOSKELETAL: No cyanosis, or edema PATIENT SEEN WITH FEMALE NUCLEAR MEDICINE SUPERVISOR FOR PELVIC AREA/GROIN EXAM Results - Labs CBC & Chem 7: 05/27/18 05:34 05/27/18 05:34 Laboratory Results - last 24 hr 05/27/18 05/27/18 05:34 05:34 WBC 11.9 H RBC 4.06 Hgb 11.7 Hct 36.1 MCV 88.9 MCH 28.8 MCHC 32.4 RDW 13.4 Plt Count 365 MPV 8.2 Neut % (Auto) 70.9 H Lymph % (Auto) 17.9 [place] % (Auto) 7.5 Eos % (Auto) 3.3 Baso % (Auto) 0.4 Neut # (Auto) 8.4 H Lymph # (Auto) 2.1 [place] # (Auto) 0.9 Eos # (Auto) 0.4 Baso # (Auto) 0.0 WBC Differential . Differential Comment Auto diff final Sodium 139 Potassium 3.3 L Chloride 103 Carbon Dioxide 30.1 Anion Gap 6 BUN 9 Creatinine 1.36 H Estimated GFR 46 L Random Glucose 81 Calcium 8.6 Phosphorus 3.2 Magnesium 1.8 Total Bilirubin 0.3 AST 23 ALT 28 Alkaline Phosphatase 67 Total Protein 6.8 Albumin 2.6 L - Imaging Abdomen/Pelvis CT 05/17/18 22:52 CONCLUSION: Cellulitis in the region of the vulva but no evidence of abscess. Probable left adrenal adenoma Hypodense liver compatible with fatty infiltration or hepatocellular disease. Soft Tissue Ultrasound 05/20/18 00:00 CONCLUSION: 1. Subcutaneous edema in the labial region without loculated fluid. Pelvis CT 05/25/18 00:00 CONCLUSION: 1. Vulvar cellulitis with apparent interval I&D or cutaneous fistula. No significant drainable fluid collection. - Procedures I AND D IN THE ER Assessment and Plan - Plan 32-year-old female with Mons Pubic abscess / Cellulitis - Appreciate ID and Executive Director Of Nursing input. - Patient is currently ANTIBIOTICS ADJUSTED PER ID ONLY ON VANCO - Percocet for pain, continue wound care. MRSA OF WOUND SENSITIVE TO BACTRIM AND DOXY PER ID LEUKOCYTOSIS RENAL INSUFFICIENCY/DEHYDRATION CONTINUE IV FLUIDS AM LAB HEPATITIS C POSITIVE -OUTPATIENT FOLLOW UP WHEN STOPS IVDU HYPOKALEMIA -WILL REPLACE WITH ORAL- REPLACE AGAIN- REPLACE AGAIN HYPOMAGNESIA WILL REPLACE WITH IV REPLACEMENT Hypertension Anxiety/Depression - Continue HCTZ, Duloxetine H/O IVDU Patient counselled against TEACH HOW TO HAVE PACK WOUND Code Status: FULL CODE Discussed Condition With: RN AND PT AND CASE MANAGEMENT Discharge Planning: ONCE CLEARED BY ID AND SALICYLIC ACID BLENDER
[2018-05-28 04:13] LABS: Baso % (Auto) 0.3 % (0.0-2.0); Eos # (Auto) 0.4 th/mm3 (0.0-0.4); Eos % (Auto) 3.7 % (0.0-4.0); Hematocrit 37.2 % (35.0-46.0); Hemoglobin 12.4 gm/dL (11.6-15.3); Lymph % (Auto) 16.6 % (9.0-44.0); Mean Corpuscular HGB Conc 33.3 % (32.0-36.0); Mean Corpuscular Hemoglobin 29.7 pg (27.0-34.0); Mean Corpuscular Volume 89.4 fL (80.0-100.0); Mean Platelet Volume 8.1 fL (7.0-11.0); Mono # (Auto) 0.6 th/mm3 (0.0-0.9); Mono % (Auto) 4.6 % (0.0-8.0); Neut # (Auto) 9.1 th/mm3 (1.8-7.7); Neut % (Auto) 74.8 % (16.0-70.0); Platelet Count 376 th/mm3 (150-450); Red Blood Count 4.16 mil/mm3 (4.00-5.30); Red Cell Distribution Width 13.9 % (11.6-17.2); White Blood Count 12.1 th/mm3 (4.0-11.0)
[2018-05-28 04:36] LABS: Alanine Aminotransferase 36 U/L (10-53); Albumin 3.1 g/dL (3.4-5.0); Anion Gap 6 meq/L (5-15); Aspartate Aminotransferase 31 U/L (15-37); Blood Urea Nitrogen 10 mg/dL (7-18); Carbon Dioxide 28.6 meq/L (21.0-32.0); Chloride 105 meq/L (98-107); Glomerular Filtration Rate 38 mL/min (>89); Glucose,Random 68 mg/dL (74-106); Magnesium 2.2 mg/dL (1.5-2.5); Phosphorus 3.3 mg/dL (2.5-4.9); Potassium 4.1 meq/L (3.5-5.1); Sodium 140 meq/L (136-145)
[2018-05-28 04:38] LABS: Alkaline Phosphatase 96 U/L (45-117); Total Protein 8.3 g/dL (6.4-8.2)
[2018-05-28] MEDS: Sod Chloride 0.9% Inj 1,000 ML IV.CONT SCH (08:41)
[2018-05-28] MEDS: hydroCHLOROthiazide 25 MG Tablet PO SCH (08:41)
[2018-05-28] MEDS: Duloxetine 60 MG DR Capsule PO SCH (08:41)
[2018-05-28] MEDS: Senna/Docusate Sodium 8.6/50 MG Tablet PO SCH (08:42)
[2018-05-28 09:09] VITALS: RESP 17
[2018-05-28] MEDS: Vancomycin Inj 1,250 MG in Sodium Chlor 0.9% Inj 250 ML IV.SIG SCH (12:03)
--- NOTE | 2018-05-28 12:04 | P.PNIM ---
Subjective Interval history: 32-year-old female with past medical history of depression, hepatitis C and IV drug abuse presents to the emergency department for evaluation of pubic cellulitis. The patient reports approximately 3-4 days ago she noticed a small red bump which she thought was an ingrown hair over the left side of her pubic bone. She reports an increase in pain and redness since that time. She endorses associated fever/chills. Also complains of diarrhea. No abdominal pain. No previous antibiotic use. No nausea/vomiting. No chest pain or shortness of breath. Patient seen and examined. Patient was admitted due to left-sided labial cellulitis/abscess. She continues to have fever as well as significant pain. We consulted infectious disease who in turn also consulted CONSULTING PROPERTY MANAGER for possible I &D. Patient is currently on vancomycin and Zosyn per ID recommendations. 05-19 Follow up for labial abscess/cellulitis. Patient is resting in bed. However, she complains that her redness and swelling are somewhat worse. No fever, chills. Patient underwent bedside I&D by Tailing Machine Operator yesterday. 05-20 Follow-up pubic mons abscess and cellulitis May 20, 2018-patient seen and examined, quite lethargic this morning. Complains of worsening erythema. Afebrile 05-21 Follow-up Phlegmon and Cellulitis of Left Labia, suprapubic area, MRSA, status post I and D, in ER was not improving clinically. on Vancomycin and Zosyn, Data Modeling Architect following, and ID specialist. 05/21: Stable in her bedroom in the presence of her significant other in the room also nurse Miss chowdhury present at all times while I was in the room, she has important erythema and edema, or her suprapubic area and extended to the thigh bilateral, continue present antibiotics and packing continue as per Nurse ans her significant other is also helping with her wound care. No nausea, vomit or diarrhea. 05-22 SEEN BY ID RECONSULT BOX PERSON FOR ABSCESS OTHER ABSCESS OPENED AND SELF DRAINED HAS PHLEGMON AND CELLULITIS OF LEFT LABIA, SUPRAPUBIC AREA WITH MRSA SP I AND D AM LABS IV FLUIDS DW RN AND PT AND CM 05-23 SLOW IMPROVEMENT POTASSIUM AND MAGNESIUM ARE OFF WILL REPLACE DW RN AND PT AND CM SEEN BY BOX PERSON CONTINUE ANTIBIOTICS AND FLUIDS AM LABS 05-24 SLOW IMPROVEMENT IN WHITE COUNT CONTINUE ANTIBIOTICS FLUIDS AM LABS STILL WITH SOME EXTRA PUS DRAINING FROM WOUND 05-25 HAD CAT SCAN OF PELVIS -SHOWS NO DRAINABLE ABSCESS CONTINUE ANTIBIOTICS STILL DRAINING DW RN AND PT AND CM AND ID AM LABS 05-26 STILL ON VANCOMYCIN AM LABS CONTINUE PACKING DW RN AND PT AND CM AND ID 05-27 TEACH HOW TO PACK WOUND DC TO HOME TOMORROW AM LABS CONTINUE PACKING SEEN BY ID AND BOX PERSON HOPEFULLY HOME TOMORROW 05-28 UNDERSTANDS HOW TO PACK WOUND WANTS TO GO HOME DW RN AND PT AND CM DC TO HOME TODAY Physical Exam Vital signs: Vital Signs 05/27/18 16:00 05/27/18 20:00 05/28/18 00:00 Temperature 97.7 F 97.9 F 98.6 F Pulse Rate 84 69 80 Respiratory Rate 17 18 18 Blood Pressure 146/86 H 167/103 H 164/103 H Pulse Oximetry 98 96 96 05/28/18 04:47 05/28/18 08:00 Temperature 99.3 F Pulse Rate 95 H Respiratory Rate 18 17 Blood Pressure 142/88 H Pulse Oximetry 95 Intake & Output 05/27/18 05/28/18 05/28/18 18:59 06:59 18:59 Intake Total 1949.5 / 1949.5 1780 / 1780 230 / 230 Balance 1949.5 / 1949.5 1780 / 1780 230 / 230 Weight 92 kg Intake: IV 999.5 / 999.5 1000 / 1000 230 / 230 NS Inj 1,000 ML @ 100 mls/hr IV 637 / 637 1000 / 1000 230 / 230 .CONT .Q10H [facility] Rx#:[id number] Magnesium Sulfate Inj 2 GM In 100 / 100 NS Inj 96 ML @ 50 mls/hr IV.SIG ONCE ONE Rx#:[id number] Vancomycin Inj 1,250 MG In NS 262.5 / 262.5 Inj 250 ML @ 250 mls/hr IV.SIG Q24H [facility] Rx#:[id number] Oral 950 / 950 780 / 780 Other: # Voids 6 4 Date of Last Bowel Movement 05/27/18 # Bowel Movements 1 Narrative: GENERAL: Well developed, well nourished female in NAD. SKIN: Warm and dry. Area over the pelvis with marking shows no signs of cellulitis; however, there is still a well-circumscribed round area superior to and to the left of the midline labia with 4cm x 4cm of induration with packing extruded from the incision with no s/s of drainage; area is c/d/i. There was no fluid or pus expressed during the exam. Pt is still TTP in that area. HEAD: Normocephalic. EYES: No scleral icterus. No injection or drainage. NECK: Supple, trachea midline. No JVD or lymphadenopathy. CARDIOVASCULAR: Regular rate and rhythm without murmurs, gallops, or rubs. RESPIRATORY: Breath sounds equal bilaterally. No accessory muscle use. GASTROINTESTINAL: Abdomen soft, non-tender, nondistended. MUSCULOSKELETAL: No cyanosis, or edema PATIENT SEEN WITH FEMALE RIVET HAMMER MACHINE OPERATOR FOR PELVIC AREA/GROIN EXAM Results - Labs CBC & Chem 7: 05/28/18 03:55 05/28/18 03:55 Laboratory Results - last 24 hr 05/28/18 05/28/18 03:55 03:55 WBC 12.1 H RBC 4.16 Hgb 12.4 Hct 37.2 MCV 89.4 MCH 29.7 MCHC 33.3 RDW 13.9 Plt Count 376 MPV 8.1 Neut % (Auto) 74.8 H Lymph % (Auto) 16.6 [place] % (Auto) 4.6 Eos % (Auto) 3.7 Baso % (Auto) 0.3 Neut # (Auto) 9.1 H Lymph # (Auto) 2.0 [place] # (Auto) 0.6 Eos # (Auto) 0.4 Baso # (Auto) 0.0 WBC Differential . Differential Comment Auto diff final Sodium 140 Potassium 4.1 D Chloride 105 Carbon Dioxide 28.6 Anion Gap 6 BUN 10 Creatinine 1.60 H Estimated GFR 38 L Random Glucose 68 L Calcium 9.0 Phosphorus 3.3 Magnesium 2.2 Total Bilirubin 0.3 AST 31 ALT 36 Alkaline Phosphatase 96 Total Protein 8.3 H D Albumin 3.1 L - Imaging Laboratory Results WBC 12.1 th/mm3 (4.0-11.0) H 05/28/18 03:55 RBC 4.16 mil/mm3 (4.00-5.30) 05/28/18 03:55 Hgb 12.4 gm/dL (11.6-15.3) 05/28/18 03:55 Hct 37.2 % (35.0-46.0) 05/28/18 03:55 MCV 89.4 fL (80.0-100.0) 05/28/18 03:55 MCH 29.7 pg (27.0-34.0) 05/28/18 03:55 MCHC 33.3 % (32.0-36.0) 05/28/18 03:55 RDW 13.9 % (11.6-17.2) 05/28/18 03:55 Plt Count 376 th/mm3 (150-450) 05/28/18 03:55 MPV 8.1 fL (7.0-11.0) 05/28/18 03:55 Prelim Diff (Auto) Slide review pending 05/26/18 06:14 Neut % (Auto) 74.8 % (16.0-70.0) H 05/28/18 03:55 Lymph % (Auto) 16.6 % (9.0-44.0) 05/28/18 03:55 [place] % (Auto) 4.6 % (0.0-8.0) 05/28/18 03:55 Eos % (Auto) 3.7 % (0.0-4.0) 05/28/18 03:55 Baso % (Auto) 0.3 % (0.0-2.0) 05/28/18 03:55 Neut # (Auto) 9.1 th/mm3 (1.8-7.7) H 05/28/18 03:55 Lymph # (Auto) 2.0 th/mm3 (1.0-4.8) 05/28/18 03:55 [place] # (Auto) 0.6 th/mm3 (0.0-0.9) 05/28/18 03:55 Eos # (Auto) 0.4 th/mm3 (0.0-0.4) 05/28/18 03:55 Baso # (Auto) 0.0 th/mm3 (0.0-0.2) 05/28/18 03:55 WBC Differential . 05/28/18 03:55 Diff Scan Auto diff confirmed 05/26/18 06:14 Differential Comment Auto diff final 05/28/18 03:55 Sodium 140 meq/L (136-145) 05/28/18 03:55 Potassium 4.1 meq/L (3.5-5.1) D 05/28/18 03:55 Chloride 105 meq/L (98-107) 05/28/18 03:55 Carbon Dioxide 28.6 meq/L (21.0-32.0) 05/28/18 03:55 Anion Gap 6 meq/L (5-15) 05/28/18 03:55 BUN 10 mg/dL (7-18) 05/28/18 03:55 Creatinine 1.60 mg/dL (0.50-1.00) H 05/28/18 03:55 Estimated GFR 38 mL/min (>89) L 05/28/18 03:55 Random Glucose 68 mg/dL (74-106) L 05/28/18 03:55 Hemoglobin A1c 5.6 % (4.3-6.0) 05/23/18 06:39 Lactic Acid 1.2 mmol/L (0.4-2.0) 05/17/18 23:00 Calcium 9.0 mg/dL (8.5-10.1) 05/28/18 03:55 Phosphorus 3.3 mg/dL (2.5-4.9) 05/28/18 03:55 Magnesium 2.2 mg/dL (1.5-2.5) 05/28/18 03:55 Total Bilirubin 0.3 mg/dL (0.2-1.0) 05/28/18 03:55 Direct Bilirubin 0.2 mg/dL (0.0-0.2) 05/17/18 Unknown Indirect Bilirubin 0.9 mg/dL (0.0-0.8) H 05/17/18 Unknown AST 31 U/L (15-37) 05/28/18 03:55 ALT 36 U/L (10-53) 05/28/18 03:55 Alkaline Phosphatase 96 U/L (45-117) 05/28/18 03:55 Total Protein 8.3 g/dL (6.4-8.2) H D 05/28/18 03:55 Albumin 3.1 g/dL (3.4-5.0) L 05/28/18 03:55 TSH 3.010 uIU/mL (0.358-3.740) 05/23/18 06:37 Free T4 1.24 ng/dL (0.76-1.46) 05/23/18 06:37 Beta HCG, Qual Less than 1.0 mIU/mL (0-5) 05/25/18 06:56 Urine Color Straw (Yellw/Straw) 05/17/18 23:05 Urine Clarity Clear (Clear) 05/17/18 23:05 Urine pH 5.0 (5.0-8.5) 05/17/18 23:05 Ur Specific [place] 1.006 (1.002-1.035) 05/17/18 23:05 Urine Protein Negative mg/dL (Neg-Trace) 05/17/18 23:05 Urine Glucose (UA) Negative mg/dL (Negative) 05/17/18 23:05 Urine Ketones Negative mg/dL (Negative) 05/17/18 23:05 Urine Occult Blood Negative (Negative) 05/17/18 23:05 Urine Nitrate Negative (Negative) 05/17/18 23:05 Urine Bilirubin Negative (Negative) 05/17/18 23:05 Urine Urobilinogen Less than 2 mg/dL (Less than 2) 05/17/18 23:05 Ur Leukocyte Esterase Negative (Negative) 05/17/18 23:05 Urine RBC Less than 1 /hpf (0-3) 05/17/18 23:05 Urine WBC 1 /hpf (0-5) 05/17/18 23:05 Ur Squamous Epith Cells 1 /hpf (0-5) 05/17/18 23:05 Urine Bacteria Rare /hpf (None) H 05/17/18 23:05 Urine Mucus Few /lpf (Occasional) H 05/17/18 23:05 Micro UA Comment Culture not ind 05/17/18 23:05 Ur Microscopic Review Not Reportable 05/17/18 23:05 Urine Culture Comments Culture not ind 05/17/18 23:05 Vancomycin Trough 13.0 mcg/mL (5.0-10.0) H 05/26/18 10:29 Random Vancomycin 13.2 Comment 05/23/18 06:37 Urine Opiates Screen Pos (Neg) H 05/17/18 23:05 Ur Barbiturates Screen Neg (Neg) 05/17/18 23:05 Ur Amphetamines Screen Neg (Neg) 05/17/18 23:05 U Benzodiazepines Scrn Neg (Neg) 05/17/18 23:05 Urine Cocaine Screen Pos (Neg) H 05/17/18 23:05 U Cannabinoids Screen Pos (Neg) H 05/17/18 23:05 Hepatitis A IgM Ab Nonreactive (Nonreactive) 05/22/18 18:50 Hep Bs Antigen Nonreactive (Nonreactive) 05/22/18 18:50 Hep B Core IgM Ab Nonreactive (Nonreactive) 05/22/18 18:50 Hep C IgG Ab Reactive (Nonreactive) H 05/22/18 18:50 Impressions Abdomen/Pelvis CT 05/17/18 22:52 CONCLUSION: Cellulitis in the region of the vulva but no evidence of abscess. Probable left adrenal adenoma Hypodense liver compatible with fatty infiltration or hepatocellular disease. Soft Tissue Ultrasound 05/20/18 00:00 CONCLUSION: 1. Subcutaneous edema in the labial region without loculated fluid. Pelvis CT 05/25/18 00:00 CONCLUSION: 1. Vulvar cellulitis with apparent interval I&D or cutaneous fistula. No significant drainable fluid collection. - Procedures I AND D IN THE ER Assessment and Plan - Plan 32-year-old female with Mons Pubic abscess / Cellulitis - Appreciate ID and Tailing Machine Operator input. - Patient is currently ANTIBIOTICS ADJUSTED PER ID ONLY ON VANCO - Percocet for pain, continue wound care. MRSA OF WOUND SENSITIVE TO BACTRIM AND DOXY PER ID LEUKOCYTOSIS RENAL INSUFFICIENCY/DEHYDRATION HEPATITIS C POSITIVE -OUTPATIENT FOLLOW UP WHEN STOPS IVDU HYPOKALEMIA -WILL REPLACE WITH ORAL- REPLACE AGAIN- REPLACE AGAIN HYPOMAGNESIA WILL REPLACE WITH IV REPLACEMENT Hypertension Anxiety/Depression - Continue HCTZ, Duloxetine H/O IVDU Patient counselled against TEACH HOW TO HAVE PACK WOUND Code Status: FULL CODE Discussed Condition With: RN AND PT AND CM Discharge Planning: DC TO HOME TODAY
--- NOTE | 2018-05-28 12:21 | P.DS ---
Date of admission: 05/18/18 00:20 Primary care physician: Luci Benjamin Attending physician on discharge: Slick Cabrera Anticipated date of discharge: 05/28/18 Brief History from admission: Ms Jackson is a 32-year-old female with past medical history of depression, hepatitis C and IV drug abuse presents to the emergency department for evaluation of pubic cellulitis. Rash has improved over 50% since admission, incision and drainage, and vancomycin administration. Patient states she is now able to walk without difficulty. She denies any tenderness over the area. Minimal drainage. No areas of pus. No new lesions. 05/27: Pt is clinically improving with no acute events overnight. Pt still has an area of induration but cellulitis is resolving. There appears to be no fluid/ purulent drainage. Pt still has pain. Reports of CP last night. Patient update on day of discharge: 32-year-old female with past medical history of depression, hepatitis C and IV drug abuse presents to the emergency department for evaluation of pubic cellulitis. The patient reports approximately 3-4 days ago she noticed a small red bump which she thought was an ingrown hair over the left side of her pubic bone. She reports an increase in pain and redness since that time. She endorses associated fever/chills. Also complains of diarrhea. No abdominal pain. No previous antibiotic use. No nausea/vomiting. No chest pain or shortness of breath. Patient seen and examined. Patient was admitted due to left-sided labial cellulitis/abscess. She continues to have fever as well as significant pain. We consulted infectious disease who in turn also consulted CHEFS for possible I &D. Patient is currently on vancomycin and Zosyn per ID recommendations. 05-19 Follow up for labial abscess/cellulitis. Patient is resting in bed. However, she complains that her redness and swelling are somewhat worse. No fever, chills. Patient underwent bedside I&D by [employer] yesterday. 05-20 Follow-up pubic mons abscess and cellulitis May 20, 2018-patient seen and examined, quite lethargic this morning. Complains of worsening erythema. Afebrile 05-21 Follow-up Phlegmon and Cellulitis of Left Labia, suprapubic area, MRSA, status post I and D, in ER was not improving clinically. on Vancomycin and Zosyn, Catalyst Operator Chief following, and ID specialist. 05/21: Stable in her bedroom in the presence of her significant other in the room also nurse Miss chowdhury present at all times while I was in the room, she has important erythema and edema, or her suprapubic area and extended to the thigh bilateral, continue present antibiotics and packing continue as per Nurse ans her significant other is also helping with her wound care. No nausea, vomit or diarrhea. 05-22 SEEN BY ID RECONSULT EMT BASIC FOR ABSCESS OTHER ABSCESS OPENED AND SELF DRAINED HAS PHLEGMON AND CELLULITIS OF LEFT LABIA, SUPRAPUBIC AREA WITH MRSA SP I AND D AM LABS IV FLUIDS DW RN AND PT AND CM 05-23 SLOW IMPROVEMENT POTASSIUM AND MAGNESIUM ARE OFF WILL REPLACE DW RN AND PT AND CM SEEN BY EMT BASIC CONTINUE ANTIBIOTICS AND FLUIDS AM LABS 05-24 SLOW IMPROVEMENT IN WHITE COUNT CONTINUE ANTIBIOTICS FLUIDS AM LABS STILL WITH SOME EXTRA PUS DRAINING FROM WOUND 05-25 HAD CAT SCAN OF PELVIS -SHOWS NO DRAINABLE ABSCESS CONTINUE ANTIBIOTICS STILL DRAINING DW RN AND PT AND CM AND ID AM LABS 05-26 STILL ON VANCOMYCIN AM LABS CONTINUE PACKING DW RN AND PT AND CM AND ID 05-27 TEACH HOW TO PACK WOUND DC TO HOME TOMORROW AM LABS CONTINUE PACKING SEEN BY ID AND EMT BASIC HOPEFULLY HOME TOMORROW 05-28 UNDERSTANDS HOW TO PACK WOUND WANTS TO GO HOME DW RN AND PT AND CM DC TO HOME TODAY DS: Diagnosis - Discharge Diagnosis (1) Abscess Status: Acute (2) Cellulitis Status: Acute (3) Sepsis Status: Acute (4) Hypertension Status: Chronic DS: Medications - Discharge Medications Prescriptions: doxycycline monohydrate [Avidoxy] 100 mg PO BID #20 tab oxycodone-acetaminophen 1 tab PO Q6H PRN #30 tab PRN Reason: Pain sennosides-docusate sodium [Senna Plus] 1 tab PO BID #60 tab DS: Summary Hospital Course: 32-year-old female with past medical history of depression, hepatitis C and IV drug abuse presents to the emergency department for evaluation of pubic cellulitis. The patient reports approximately 3-4 days ago she noticed a small red bump which she thought was an ingrown hair over the left side of her pubic bone. She reports an increase in pain and redness since that time. She endorses associated fever/chills. Also complains of diarrhea. No abdominal pain. No previous antibiotic use. No nausea/vomiting. No chest pain or shortness of breath. Patient seen and examined. Patient was admitted due to left-sided labial cellulitis/abscess. She continues to have fever as well as significant pain. We consulted infectious disease who in turn also consulted CHEFS for possible I &D. Patient is currently on vancomycin and Zosyn per ID recommendations. 05-19 Follow up for labial abscess/cellulitis. Patient is resting in bed. However, she complains that her redness and swelling are somewhat worse. No fever, chills. Patient underwent bedside I&D by [employer] yesterday. 05-20 Follow-up pubic mons abscess and cellulitis May 20, 2018-patient seen and examined, quite lethargic this morning. Complains of worsening erythema. Afebrile 05-21 Follow-up Phlegmon and Cellulitis of Left Labia, suprapubic area, MRSA, status post I and D, in ER was not improving clinically. on Vancomycin and Zosyn, Catalyst Operator Chief following, and ID specialist. 05/21: Stable in her bedroom in the presence of her significant other in the room also nurse Miss chowdhury present at all times while I was in the room, she has important erythema and edema, or her suprapubic area and extended to the thigh bilateral, continue present antibiotics and packing continue as per Nurse ans her significant other is also helping with her wound care. No nausea, vomit or diarrhea. 05-22 SEEN BY ID RECONSULT EMT BASIC FOR ABSCESS OTHER ABSCESS OPENED AND SELF DRAINED HAS PHLEGMON AND CELLULITIS OF LEFT LABIA, SUPRAPUBIC AREA WITH MRSA SP I AND D AM LABS IV FLUIDS DW RN AND PT AND CM 05-23 SLOW IMPROVEMENT POTASSIUM AND MAGNESIUM ARE OFF WILL REPLACE DW RN AND PT AND CM SEEN BY EMT BASIC CONTINUE ANTIBIOTICS AND FLUIDS AM LABS 05-24 SLOW IMPROVEMENT IN WHITE COUNT CONTINUE ANTIBIOTICS FLUIDS AM LABS STILL WITH SOME EXTRA PUS DRAINING FROM WOUND 05-25 HAD CAT SCAN OF PELVIS -SHOWS NO DRAINABLE ABSCESS CONTINUE ANTIBIOTICS STILL DRAINING DW RN AND PT AND CM AND ID AM LABS 05-26 STILL ON VANCOMYCIN AM LABS CONTINUE PACKING DW RN AND PT AND CM AND ID 05-27 TEACH HOW TO PACK WOUND DC TO HOME TOMORROW AM LABS CONTINUE PACKING SEEN BY ID AND EMT BASIC HOPEFULLY HOME TOMORROW 05-28 UNDERSTANDS HOW TO PACK WOUND WANTS TO GO HOME DW RN AND PT AND CM DC TO HOME TODAY DOXYCYCLINE 100MG BID FOR 10 DAY [facility] Prescription Drug Monitoring Database has been queried and verified prior to prescribing the controlled substance. Acute pain exception. This patient has normal, predicted, physiological, and time limited response to an adverse mechanical stimulus associated with surgery, trauma, or acute illness as described in my notes. There is a lack of alternative treatment options other than to include the prescribed narcotic treatment for this condition. rx written - Time Spent with Patient Total time spent providing and/or coordinating discharge services: Greater than 30 minutes - Quality: VTE Deep Vein Thrombosis/Pulmonary Embolism Present on Admission: No Exam Vital signs: Vital Signs 05/27/18 16:00 05/27/18 20:00 05/28/18 00:00 Temperature 97.7 F 97.9 F 98.6 F Pulse Rate 84 69 80 Respiratory Rate 17 18 18 Blood Pressure 146/86 H 167/103 H 164/103 H Pulse Oximetry 98 96 96 05/28/18 04:47 05/28/18 08:00 Temperature 99.3 F Pulse Rate 95 H Respiratory Rate 18 17 Blood Pressure 142/88 H Pulse Oximetry 95 Intake & Output 05/27/18 05/28/18 05/28/18 18:59 06:59 18:59 Intake Total 1949.5 / 1949.5 1780 / 1780 230 / 230 Balance 1949.5 / 1949.5 1780 / 1780 230 / 230 Weight 92 kg Intake: IV 999.5 / 999.5 1000 / 1000 230 / 230 NS Inj 1,000 ML @ 100 mls/hr IV 637 / 637 1000 / 1000 230 / 230 .CONT .Q10H [facility] Rx#:[id number] Magnesium Sulfate Inj 2 GM In 100 / 100 NS Inj 96 ML @ 50 mls/hr IV.SIG ONCE ONE Rx#:[id number] Vancomycin Inj 1,250 MG In NS 262.5 / 262.5 Inj 250 ML @ 250 mls/hr IV.SIG Q24H [facility] Rx#:[id number] Oral 950 / 950 780 / 780 Other: # Voids 6 4 Date of Last Bowel Movement 05/27/18 # Bowel Movements 1 Narrative: GENERAL: Well developed, well nourished female in NAD. SKIN: Warm and dry. Area over the pelvis with marking shows no signs of cellulitis; however, there is still a well-circumscribed round area superior to and to the left of the midline labia with 4cm x 4cm of induration with packing extruded from the incision with no s/s of drainage; area is c/d/i. There was no fluid or pus expressed during the exam. Pt is still TTP in that area. HEAD: Normocephalic. EYES: No scleral icterus. No injection or drainage. NECK: Supple, trachea midline. No JVD or lymphadenopathy. CARDIOVASCULAR: Regular rate and rhythm without murmurs, gallops, or rubs. RESPIRATORY: Breath sounds equal bilaterally. No accessory muscle use. GASTROINTESTINAL: Abdomen soft, non-tender, nondistended. MUSCULOSKELETAL: No cyanosis, or edema PATIENT SEEN WITH FEMALE TUBE AND ROD STRAIGHTENER FOR PELVIC AREA/GROIN EXAM Results Procedures completed during hospitalization: I AND D IN THE ER Labs on day of discharge: Labs from last 24 hours 05/28/18 05/28/18 03:55 03:55 WBC 12.1 H RBC 4.16 Hgb 12.4 Hct 37.2 MCV 89.4 MCH 29.7 MCHC 33.3 RDW 13.9 Plt Count 376 MPV 8.1 Neut % (Auto) 74.8 H Lymph % (Auto) 16.6 Moody % (Auto) 4.6 Eos % (Auto) 3.7 Baso % (Auto) 0.3 Neut # (Auto) 9.1 H Lymph # (Auto) 2.0 Moody # (Auto) 0.6 Eos # (Auto) 0.4 Baso # (Auto) 0.0 WBC Differential . Differential Comment Auto diff final Sodium 140 Potassium 4.1 D Chloride 105 Carbon Dioxide 28.6 Anion Gap 6 BUN 10 Creatinine 1.60 H Estimated GFR 38 L Random Glucose 68 L Calcium 9.0 Phosphorus 3.3 Magnesium 2.2 Total Bilirubin 0.3 AST 31 ALT 36 Alkaline Phosphatase 96 Total Protein 8.3 H D Albumin 3.1 L - Impressions ITS Impressions Abdomen/Pelvis CT 05/17/18 22:52 CONCLUSION: Cellulitis in the region of the vulva but no evidence of abscess. Probable left adrenal adenoma Hypodense liver compatible with fatty infiltration or hepatocellular disease. Soft Tissue Ultrasound 05/20/18 00:00 CONCLUSION: 1. Subcutaneous edema in the labial region without loculated fluid. Pelvis CT 05/25/18 00:00 CONCLUSION: 1. Vulvar cellulitis with apparent interval I&D or cutaneous fistula. No significant drainable fluid collection. Discharge Plan - Discharge Disposition Patient Disposition: 01 Discharge Home - Discharge Condition Condition: Stable - Discharge Order Discharge Orders: Discharge Order (Routine); Ordered 05/28/18 Ordered By: Slick Cabrera - Discharge Details Anticipated Discharge Date: 05/28/18 Discharge Comment: dc to home today - Physicians Team Primary Care Provider: Luci Benjamin, Attending Provider: Slick Cabrera Other Providers: Marilyn Clark MD ; Jeff Elizabeth MD
[2018-05-28 12:45] VITALS: BP 147/89; PULSE 69; TEMP 98; O2SAT 97
== END 2018-05-28 16:22 | disposition home or self-care (01) ==
LOC: NEPE 21:26 → NEDA 05-18 00:20 → N07 05-18 01:29
PROVIDERS: ADMIT Hospitalist; ATTEND Hospitalist